=== PATIENT | female | born 1935 | race Caucasian/White ===

== ENCOUNTER 2017-07-05 15:30 | Outpatient (CLI) | payer MEDICARE, OTHER | END 2017-07-05 15:31 | disposition home or self-care (01) | LOC: BICMAMMO 15:30 | DX: Z12.31 Encounter for screening mammogram for malignant neoplasm of breast (principal); Z80.3 Family history of malignant neoplasm of breast | CPT/HCPCS: 77063; 77067 ==

== ENCOUNTER 2017-08-27 07:18 | Outpatient (CLI) | payer MEDICARE, OTHER | END 2017-08-27 07:19 | disposition home or self-care (01) | LOC: CT 07:18 | PROVIDERS: ATTEND Otolaryngology Plastic Surgery within the Head & Neck | DX: E83.52 Hypercalcemia (principal) | CPT/HCPCS: 82565 ==

== ENCOUNTER 2017-10-19 08:07 | Outpatient (CLI) | payer MEDICARE, OTHER | END 2017-10-19 08:08 | disposition home or self-care (01) | LOC: BICULT 08:07 | PROVIDERS: ATTEND Internal Medicine Nephrology | DX: I77.811 Abdominal aortic ectasia (principal); N17.9 Acute kidney failure, unspecified; I12.9 Hypertensive chronic kidney disease with stage 1 through stage 4 chronic kidney disease, or unspecified chronic kidney disease; N18.3 Chronic kidney disease, stage 3 (moderate); I11.9 Hypertensive heart disease without heart failure; E03.9 Hypothyroidism, unspecified; E78.5 Hyperlipidemia, unspecified; I25.10 Atherosclerotic heart disease of native coronary artery without angina pectoris; N31.9 Neuromuscular dysfunction of bladder, unspecified; R31.9 Hematuria, unspecified; K57.92 Diverticulitis of intestine, part unspecified, without perforation or abscess without bleeding; H26.9 Unspecified cataract; H91.93 Unspecified hearing loss, bilateral; E83.51 Hypocalcemia; J44.9 Chronic obstructive pulmonary disease, unspecified; R60.9 Edema, unspecified; Z85.43 Personal history of malignant neoplasm of ovary | CPT/HCPCS: 76700 ==

== ENCOUNTER 2018-03-21 11:49 | Inpatient (IN) | payer MEDICARE, OTHER ==
[2018-03-21 12:28] LABS: #Eosinphils 0.1 thou/uL (0.0-0.7); #Lymphocytes 1.1 thou/uL (1.20-3.40); #Monocytes 0.8 thou/uL (0.11-0.59); #Neutrophils 9.1 thou/uL (1.40-6.50); %Basophils 0.2 % (0.0-1.0); %Eosinophils 0.9 % (0.0-10.0); %Lymphocytes 9.8 % (21.0-51.0); %Monocytes 6.8 % (0.0-10.0); %Neutrophils 82.3 % (42.0-75.0); Hemoglobin 13.9 g/dL (12.0-16.0); Mean Corpuscular HGB CONC 30.2 g/dL (32.0-36.0); Mean Corpuscular Hemoglobin 26.8 pg (27.0-31.0); Mean Platelet Volume 7.6 fL (7.4-10.4); Platelet Count 268 thou/uL (130-400); RBC Distribution Width 13.9 % (11.5-14.5); Red Blood Cell (RBC) Count 5.17 mill/uL (4.20-5.40)
[2018-03-21 12:52] LABS: ALT (SGPT) 24 U/L (8-55); AST (SGOT) 22 U/L (5-34); Albumin 4.3 g/dL (3.4-4.8); Alkaline Phosphatase 60 U/L (40-150); Anion Gap 10 mmol/L (10-20); BUN (Urea Nitrogen) 24 mg/dL (9.8-20.1); Bilirubin, Total 0.8 mg/dL (0.2-1.2); CK (CPK) 60 U/L (29-168); Calc. Creatinine Clearance 0 mL/min (70-130); Calcium 10.6 mg/dL (7.8-10.44); Carbon Dioxide 29 mmol/L (23-31); Chloride 100 mmol/L (98-107); Estimated GFR-MDRD 42; Glucose 125 mg/dL (83-110); Potassium 4.2 mmol/L (3.5-5.1); Protein, Total 7.3 g/dL (6.0-8.3); Sodium 135 mmol/L (136-145)
[2018-03-21 12:57] LABS: CKMB 2.5 ng/mL (0-6.6); Troponin I Less than 0.010 ng/mL (< 0.028)
--- NOTE | 2018-03-21 13:17 | RAD ---
CHEST 1 VIEW: HISTORY: Emergency exam. Chest pain. COMPARISON: Radiograph of 01/13/2016. FINDINGS: Lungs are hyperinflated. No pneumothorax. No large effusion. Cardiac silhouette and mediastinal co ntours are similar. IMPRESSION: Chronic changes. No acute intrathoracic abnormality. POS: CET
[2018-03-21] MEDS ORDERED: Diltiazem 125 MG in Sodium Chloride 0.9% 100 ML IVPB SCH (13:45)
[2018-03-21] MEDS ORDERED: Enoxaparin Sodium 60 MG/0.6 ML SYRINGE ONE (14:28)
--- NOTE | 2018-03-21 16:01 | HP ---
PRIMARY CARE PROVIDER: Kevin Rodríguez M.D. FINANCIAL PLANNING ADVISER: Dr. Adrien Aranda [facility] for atrial fib/atrial flutte r. HISTORY OF PRESENT ILLNESS: This morning woke up, felt fine, then had a mild headache, then develope d palpitations, had no chest discomfort, no shortness of breath, no sweats. She was little lighthead ed. She has no documented history of arrhythmia. She took her blood pressure 3 times and blood pres sure ranged from 114/154 systolic and 70-80 diastolic. Her pulses ranged from 107-147-126. She pres ented in the emergency room. Her initial EKG revealed atrial flutter with 2:1 block. She spontaneou sly converted to sinus rhythm, then went into atrial fibrillation and had rapid ventricular response before Cardizem could be started. She went back into sinus rhythm at 62. PAST MEDICAL HISTORY: Chronic diastolic heart failure, ischemic coronary artery disease post-balloon angioplasty in 1989 and 1994, hypertension, hypothyroidism, dyslipidemia. PAST SURGICAL HISTORY: Ovarian cancer in 2011, underwent surgery and chemotherapy in that year. Has had no recurrence. She has had partial colectomy for diverticulitis. She has had a recent diagnosi s of polymyalgia rheumatica. CURRENT MEDICATIONS: Reviewed by me; Bystolic 5 mg once a day, amitriptyline 10 mg a day, Synthroid 50 mcg a day, losartan 50 mg a day, Lipitor 40 mg a day, clonidine transdermal TTS 1 p.r.n., Anoro El lipta 62.5/25 once a day, prednisone 5 mg in the morning and 2.5 mg in the evening, Lasix 20 mg a day , tramadol 50 mg q.6 hours p.r.n., Ventolin 2 puffs q.4 h. p.r.n. ALLERGIES: To COMPAZINE, PENICILLINS, ZOLOFT. FAMILY HISTORY: Mother and father both had coronary artery disease. Father with a ruptured tho racic abdominal aortic aneurysm. One brother of thoracic aortic aneurysm. SOCIAL HISTORY: Patient has been , a couple of decades. She quit smoking and drinking alcoho l in 1999. She is DNR. I discussed this with her at length. Her grandson is at bedside. Her daugh ter, Keila Delgado, is next of kin. REVIEW OF SYSTEMS: GENERAL: Mild dizziness, no fainting, mild headache. No fever, sweats or chills . EYES: No double vision, blurred vision, flashing lights. ENT: No ear pain or drainage. No nose bleeds, no trouble swallowing. CARDIAC: No chest pain, orthopnea or paroxysmal nocturnal dyspnea. RESPIRATORY: No cough, wheezing or asthma. GASTROINTESTINAL: No nausea, vomiting, abdominal pain, diarrhea or melena. GENITOURINARY: No hematuria, dysuria. MUSCULOSKELETAL: No pain or swelling i n her legs. NEUROLOGIC: No strokes, seizures or focal weakness. PSYCHIATRIC: No anxiety, depressi on issues currently. SKIN: She has a chronic rash on her upper back across her shoulders. This has been evaluated by multiple doctors with biopsies. No specific diagnosis or treatment. HEME/LYMPH: No tender or swollen lymph nodes in axilla, inguinal or cervical area. PHYSICAL EXAMINATION: VITAL SIGNS: Currently blood pressure 114/78, pulse is 62, respirations 16, temperature 98.7. HEENT: Examination of her head, eyes, ears, nose, and throat reveal pupils are equal, round, and kraig ctive to light. Extraocular movements are intact. Sclerae are white. Tympanic membrane is clear. Nose is clear. Oral mucous membranes are wet. Dental hygiene is good. NECK: No adenopathy, jugular venous distention, bruits. CHEST: Clear to auscultation and percussion bilateral. HEART: Regular rate and rhythm. First and second heart sounds are clear. There are no appreciated murmurs or gallops. ABDOMEN: Soft, bowel sounds are normal. No hepatosplenomegaly, no mass, no rebound, no bruits. EXTREMITIES: Reveal no cyanosis, clubbing or edema. PULSES: Carotid, radial, femoral, and dorsalis pedis pulses are brisk and symmetric. SKIN: Warm and dry with mild excoriated rash across her posterior shoulders. No petechial hemorrhag es or bruising. LYMPHATIC: No tender or swollen lymph nodes in axilla, inguinal or cervical area. NEUROLOGIC: Cranial nerves II-XII are intact. Deep tendon reflexes symmetric. Moves all extremitie s. IMAGING DATA AND LABORATORY DATA: First EKG atrial flutter with classic saw tooth pattern at 2:1 blo ck. Next EKG, atrial fibrillation with rapid ventricular response. Current sinus rhythm with no acu te ST-T abnormality. All were read by myself. Chest x-ray reviewed by me, no cardiomegaly, vertical heart, no CHF or infiltrate, early diaphragmatic flattening consistent with mild to moderate COPD. CBC: White count 11.0, hemoglobin 13.9, platelet count 268,000. Comp metabolic profile; creatinine 1.22, BUN 24, glucose 125, calcium 10.6. Liver function tests normal. Sodium 135, potassium 4.2, CO 2 29. ADMITTING DIAGNOSES: 1. Atrial flutter. 2. Atrial fibrillation with rapid ventricular response. 3. Coronary artery disease. 4. Hypertension. 5. Chronic obstructive pulmonary disease. 6. Dyslipidemia. 7. Hypothyroidism. 8. Polymyalgia rheumatica on placement doses of prednisone. 9. History of ovarian CA, apparently in remission. PLAN: 1. Admit to telemetry. 2. Therapeutic doses of Lovenox. 3. Selective home medicines. 4. Cardiology consult with Dr. Aranda. 5. EP consult with Dr. Barton. 6. Thyroid function test studies. 7. Repeat CBC and basic metabolic profile in the morning.
[2018-03-21] MEDS ORDERED: Acetaminophen 325 MG TAB PO PRN (16:59)
[2018-03-21] MEDS ORDERED: Ondansetron PF 4 MG/2 ML Vial IVP PRN (16:59)
[2018-03-21] MEDS ORDERED: Zolpidem Tartrate 5 MG TAB PO PRN (16:59)
[2018-03-21 17:04] LABS: Troponin I 0.012 ng/mL (< 0.028)
[2018-03-21 17:19] VITALS: BMI 25.0
[2018-03-21 18:50] LABS: Free T4 (Free Thyroxine) 1.18 ng/dL (0.70-1.48)
[2018-03-21 19:44] LABS: Troponin I 0.024 ng/mL (< 0.028)
[2018-03-21] MEDS: Enoxaparin Sodium 60 MG/0.6 ML SYRINGE SC SCH (20:11)
[2018-03-22 05:26] LABS: #Eosinphils 0.3 thou/uL (0.0-0.7); #Lymphocytes 1.9 thou/uL (1.20-3.40); #Neutrophils 5.1 thou/uL (1.40-6.50); %Basophils 0.3 % (0.0-1.0); %Eosinophils 3.1 % (0.0-10.0); %Neutrophils 61.6 % (42.0-75.0); Hemoglobin 11.9 g/dL (12.0-16.0); Mean Corpuscular HGB CONC 30.8 g/dL (32.0-36.0); Mean Corpuscular Hemoglobin 27.5 pg (27.0-31.0); Mean Corpuscular Volume 89.1 fL (78.0-98.0); Mean Platelet Volume 7.6 fL (7.4-10.4); Platelet Count 227 thou/uL (130-400); RBC Distribution Width 13.9 % (11.5-14.5); Red Blood Cell (RBC) Count 4.35 mill/uL (4.20-5.40); White Blood Cell (WBC) Count 8.3 thou/uL (4.8-10.8)
[2018-03-22 05:32] LABS: Anion Gap 8 mmol/L (10-20); BUN (Urea Nitrogen) 21 mg/dL (9.8-20.1); Calc. Creatinine Clearance 45 mL/min (70-130); Calcium 9.7 mg/dL (7.8-10.44); Carbon Dioxide 27 mmol/L (23-31); Chloride 106 mmol/L (98-107); Estimated GFR-MDRD 56; Glucose 96 mg/dL (83-110); Sodium 137 mmol/L (136-145)
[2018-03-22] MEDS: hydrALAZINE 20 MG/ML VIAL SLOW IVP PRN ×2 (05:34→19:46)
[2018-03-22] MEDS ORDERED: Levothyroxine Sodium 50 MCG TAB PO SCH (06:00)
--- NOTE | 2018-03-22 08:15 | PDOC.PN ---
- Subjective Encounter Start Date: 03/22/18 Encounter Start Time: 08:13 Subjective: no palpatations, chest pain - Objective Resuscitation Status: Resuscitation Status DNR:Do Not Resuscitate MAR Reviewed: Yes Vital Signs & Weight: Vital Signs (12 hours) Temp Pulse Resp BP BP Pulse Ox 03/22/18 07:37 97.9 F 72 18 166/70 H 95 03/22/18 07:13 94 L 03/22/18 06:27 167/87 H 03/22/18 06:22 167/87 H 03/22/18 05:34 72 188/75 H 03/22/18 04:00 98.4 F 71 20 179/74 H 94 L 03/21/18 20:45 97 Weight Weight 139 lb I&O: 03/21/18 03/22/18 03/23/18 06:59 06:59 06:59 Intake Total 830 Output Total 1550 Balance -720 Result Diagrams: 03/22/18 04:55 03/22/18 04:55 Phys Exam - Physical Examination Neck: no JVD Respiratory: clear to auscultation bilateral Cardiovascular: RRR, no significant murmur Gastrointestinal: soft, positive bowel sounds Musculoskeletal: no edema Dx/Plan (1) Atrial fib/flutter, transient Code(s): [id number] - Status: Acute (2) Coronary arteriosclerosis Status: Chronic (3) Hypertension Code(s): I10 - ESSENTIAL (PRIMARY) HYPERTENSION Status: Acute Qualifiers: Hypertension type: essential hypertension Qualified Code(s): I10 - Essential (primary) hypertension (4) Hypothyroidism Code(s): E03.9 - HYPOTHYROIDISM, UNSPECIFIED Status: Acute Qualifiers: Hypothyroidism type: unspecified Qualified Code(s): E03.9 - Hypothyroidism , unspecified - Plan Cardiologfy consult, EP consult- discuss * .
--- NOTE | 2018-03-22 09:59 | CON ---
DATE OF CONSULTATION: 03/22/2018 REASON FOR CONSULTATION: Atrial flutter. HISTORY OF PRESENT ILLNESS: Ms. Kulwinder Myers is a very pleasant patient with a long history of c oronary disease who was admitted to the hospital with rapid heart rate and found to be in atrial flut ter. She also has had a history of atrial fibrillation as well. The patient has a history of percutaneous transluminal coronary angioplasty in 1989 and 1994, but has not had recurrent angina. She also has history of hypertension. PAST SURGICAL HISTORY: 1. Ovarian cancer with subsequent chemotherapy. 2. Partial colectomy for diverticulitis. 3. Polymyalgia. MEDICATIONS: Prior to admission; 1. Bystolic. 2. Amitriptyline. 3. Synthroid. 4. Losartan. 5. Lipitor. 6. Clonidine. ALLERGIES: COMPAZINE and PENICILLIN. FAMILY HISTORY: Mother and father both had coronary artery disease. Father of abdominal aortic aneurysm rupture. SOCIAL HISTORY: Quit smoking in 1999. REVIEW OF SYSTEMS: Constitutional: No significant weight gain or loss. Vision: No changes. Heari ng: No changes. Pulmonary: No cough or wheezing. Gastrointestinal: No nausea, vomiting, diarrhea . Skin: No rashes. Neurologic: No unilateral weakness or numbness. Psychiatric: No unusual depr ession or anxiety. PHYSICAL EXAMINATION: GENERAL: Pleasant patient, in no distress. VITAL SIGNS: Blood pressure 114/78, pulse 62. HEENT: Sclerae nonicteric. Mouth Mucous membranes moist. NECK: Supple, no lymphadenopathy. LUNGS: Clear. CARDIAC: Normal S1, normal S2. There is no murmur, rub or gallop. ABDOMEN: Soft, nontender. EXTREMITIES: No clubbing or cyanosis. There is no edema. SKIN: Warm and dry. LABORATORY AND X-RAY FINDINGS: EKG did reveal periods of atrial flutter. ASSESSMENT: 1. Symptomatic atrial flutter. 2. History of coronary artery disease. PLAN: Agree totally with proceeding with atrial flutter ablation. I spoke with one of the daughters over the phone, strongly advised proceeding with flutter ablation, flutter without ablation is extre benitez high recurrence rate. In that occasion, they are almost always ineffective. They understand and wish to proceed.
--- NOTE | 2018-03-22 12:14 | CON ---
DATE OF CONSULTATION: 03/22/2018 REFERRING PHYSICIAN: Dr. Chester Shankar REASON FOR CONSULTATION: Symptomatic atrial flutter with rapid ventricular response. TRACK LABORER: Dr. Adrien Aranda HISTORY OF PRESENT ILLNESS: Ms. Myers originally presented to [facility] reportin g an elevated heart rate and slightly with associated symptoms of headache and slight lightheadedness . She had been checking her vital signs at home and reports her blood pressure had begun to vary gre atly and her heart rate was recorded as high as 147 at home. On presentation to the emergency room a n EKG was performed that showed atrial flutter with a 2:1 AV block with ventricular rate of 125 beats per minute. She spontaneously converted to sinus rhythm, by ER records she then went into atrial fi brillation with RVR and has since converted back to sinus rhythm. She reports that she has had at ast 1 similar episode in the recent past, but this is not a longstanding issue for her. Currently, she is feeling well. She denies any heart racing, palpitations, chest pain, pressure, syn cope, near syncope, stroke or stroke-like symptoms. REVIEW OF SYSTEMS GENERAL: Denies fevers, chills, malaise, loss of appetite or unintentional weight loss. HEENT: Denies any double vision, vision changes, speech changes or difficult swallowing. CARDIAC: Positive for a fluttering sensation in her chest recently. Denies chest pain, pressure or swelling of the extremities. PULMONARY: Negative for shortness of breath, cough or dyspnea on exertion. GASTROINTESTINAL/GENITOURINARY: Denies nausea, vomiting, diarrhea, frequency, hesitancy or pain with urination. NEUROLOGIC: Denies any unilateral weakness, speech changes, vision changes or concern for stroke or seizures. PAST MEDICAL HISTORY: 1. Chronic diastolic heart failure. 2. Coronary artery disease status post angioplasty in 1989 and 1994. 3. Hypertension. 4. Hypothyroidism. 5. Dyslipidemia. 6. Polymyalgia rheumatica. PAST SURGICAL HISTORY: 1. Ovarian cancer diagnosed in 2011, status post surgical management as well as chemotherapy that ye ar without recurrence. 2. Partial colectomy for diverticulitis. ALLERGIES: COMPAZINE, PENICILLIN, and ZOLOFT. HOME MEDICATIONS: 1. Bystolic 5 mg daily. 2. Amitriptyline 10 mg daily. 3. Synthroid 50 mg daily. 4. Losartan 50 mg daily. 5. Lipitor 40 mg a day. 6. Clonidine transdermal patch as needed for hypertension 7. Anoro Ellipta 62.5/25 daily. 8. Prednisone 5 mg q.a.m. and 2.5 mg q.p.m. 9. Lasix 20 mg daily. 10. Tramadol 50 mg q.6 hours p.r.n. 11. Ventolin inhaler 2 puffs q.4 hours p.r.n. FAMILY HISTORY: Mother and father both had coronary artery disease. Father from a ruptu red thoracic abdominal aortic aneurysm as well as one of her brothers. SOCIAL HISTORY: . Quit smoking in 1999. She has her daughter, Keila Delgado as her next of kin. Her grandson is at bedside during the exam. By her choice she is a DNR. VITAL SIGNS: Most recent vital signs include 97.9, pulse 72, blood pressure is 166/70, respirations 18, oxygen is 95% on room air. GENERAL: This is a well-appearing, well-groomed female in no apparent distress. HEENT: She is normocephalic, atraumatic. Sclerae are anicteric. EOMs are intact. Mucous membranes moist, pink. NECK: Supple without lymphadenopathy or jugular venous distention. CHEST: Clear to auscultation bilaterally without wheezes, crackles or rhonchi. CARDIOVASCULAR: Heart rate is regularly regular with a crisp S1, S2. No appreciated murmurs, rubs o r gallops. ABDOMEN: Soft, nontender without palpable masses. Hepatojugular is negative. EXTREMITIES: Warm and dry to touch without clubbing, cyanosis or edema. NEUROLOGIC: Grossly intact and nonfocal. Cranial nerves II-XII, her gait was not assessed. DATABASE: The telemetry and EKGs were personally reviewed which initially show seemingly typical atr ial flutter with 2:1 AV pia conduction with a ventricular rate of approximately 125 beats per minut e. Telemetry currently reads sinus rhythm. LABORATORY DATA: Hematology is unremarkable. Chemistry panel from this morning, potassium 4.0, crea tinine 0.95, serial troponins were negative. TSH 1.01, free T4 1.18, free T3 of 2.14, otherwise unre markable. Chest x-ray from the day prior, chronic changes, no acute abnormalities. IMPRESSION: 1. Symptomatic atrial flutter with rapid ventricular response, likely CTI dependent. 2. History of coronary artery disease. 3. CHADS2-VASc score at least 5 on the basis of advanced age, female gender, vascular disease and hy pertension, currently on therapeutic Lovenox for stroke prophylaxis, but will require chronic oral an ticoagulation. 4. Chronic obstructive pulmonary disease. RECOMMENDATIONS: I had a long discussion with Ms. Myers and her grandson, discussing atrial arr hythmias and possible treatment options. Our recommendation is for EP study and CTI ablation for her typical atrial flutter. There has been some mention of atrial fibrillation in her record as well wh ich is not unlikely. Approximately 30% of patients with right-sided atrial circuits also have atrial fibrillation. We discussed that with the patient as well. We will keep her n.p.o. today for possib le EP study and ablation later this afternoon. Risks include hematoma, bleeding at groin site, damag e to blood vessels, perforation of the heart, need for CV Surgery and further arrhythmias. The patie nt voices understanding and wishes to proceed with ablation at this time after discussing it further with Dr. Aranda as well. If just typical right-sided atrial flutter is seen during EP she will only require oral anticoagulation for 30 days post-ablation, but if further left atrial circuits are seen, continued OAC would be indicated and further medical management versus potential ablation can be dis cussed at a later date with her. Thank you for allowing us to participate in the care of this patient.
[2018-03-22] MEDS: Enoxaparin Sodium 60 MG/0.6 ML SYRINGE SC SCH (12:41)
[2018-03-22] MEDS ORDERED: PHENYLEPHRINE-NS 100 MCG/ML 10 ML SYRINGE ONE ×2 (15:02→16:54)
[2018-03-22] MEDS ORDERED: PROPOFOL 200 MG/20 ML VIAL ONE (15:02)
[2018-03-22] MEDS ORDERED: Lidocaine 1% (PF) 30 ML VIAL ONE (15:08)
[2018-03-22] MEDS ORDERED: Propofol 500 MG/50 ML VIAL ONE ×3 (15:50→16:54)
[2018-03-22] MEDS ORDERED: Heparin 10,000 UNITS/1 ML VIAL ONE (15:50)
[2018-03-22] MEDS ORDERED: PROPOFOL 20 ML ONE ×2 (17:29→17:50)
[2018-03-22] MEDS ORDERED: Ondansetron HCl/PF 4 MG/2 ML Vial IVP PRN (18:13)
[2018-03-22] MEDS ORDERED: cloNIDine 0.1 MG TAB PO PRN (20:38)
[2018-03-22] MEDS ORDERED: Nitroglycerin 0.4 MG TAB (25 Tab Bottle) SL PRN (20:45)
[2018-03-22] MEDS ORDERED: PROVENTIL INHALER 6.7 G (200 INHALATIONS) INH PRN (20:47)
[2018-03-22] MEDS ORDERED: Amitriptyline HCl 10 MG TAB PO SCH (21:00)
[2018-03-22] MEDS ORDERED: prednisoLONE 15 MG/5 ML UDCUP PO SCH (21:00)
[2018-03-22] MEDS ORDERED: Betamethasone Val 0.1% OINT 15 GM TUBE TOP PRN (21:15)
[2018-03-22] MEDS ORDERED: Morphine 2 MG/ML SYRINGE SLOW IVP SCH (21:30)
[2018-03-22] MEDS: traMADol HCl 50 MG TAB PO PRN ×2 (21:37→21:49)
[2018-03-22] MEDS: Nebivolol HCl 5 MG TAB PO SCH (21:49)
--- NOTE | 2018-03-23 01:56 | OP ---
DATE OF PROCEDURE: 03/22/2018 This is an electrophysiology study and radiofrequency ablation report. REFERRING PHYSICIAN: Dr. Donald Dozier and Dr. Aranda REASON FOR PROCEDURE: Ms. Myers is an 82-year-old female with history of coronary artery disease and remote history of atrial fibrillation. She has presented with typical atrial flutter with rapid rates. During the observation , she spontaneously cardioverted. PROCEDURE: Patient received deep sedation by Anesthesia specialist. After adequate level of sedation achieved, the right femoral venous area was prepped, draped, and anesthetized with subcutaneous lidocaine and with ultrasound guidance, the right femoral vein was cannulated x2. Two 8-Hungarian short sheath was introduced through which a Decapolar catheter was advanced to the RV, His bundle, RA, and CS position. Pacing, mapping, and recording was performed in each location. The ThermoCool SF ST catheter was advanced to the right atrium. A 3D map of the right atrium was obtained including His bundle and CS was visualized. Following that, basic EP study was performed with the following finding. Baseline of the sinus rhythm with cycle length of 630 milliseconds, LA of 193. QRS 558, QT 373, AH 136, HV 56 milliseconds. Sinus node recovery time was 12: 29. Corrected sinus node recovery time is 380 Wenckebach cycle length was 340, retrograde Wenckebach cycle length was 540 milliseconds. Central retrograde VA conduction was noted. AV node ERP of was 600/240 milliseconds with no dual AV pia physiology present. Burst atrial pacing was able to induce the atrial flutter, which appears to be typical isthmus-dependent in morphology and CS activation, but terminated on overdrive pacing. Following that cavotricuspid isthmus ablation was performed prolonging transit time about 110 milliseconds. Subsequent to that atrial fibrillation was seen, which was difficult to shock terminated, the IV amiodarone was given and eventually cardioversion again performed. Cardiac silhouette did not change pre and post ablation. Patient tolerated the procedure well. Sheaths were pulled in superintendent geophysical laboratory. PLAN: Continue monitoring, initiate the oral anticoagulation if recurrent atrial arrhythmias seen - consider antiarrhythmic therapy, possibly pulmonary venous isolation procedure. MTDD
[2018-03-23] MEDS ORDERED: Diazepam 5 MG TAB PO SCH (06:00)
[2018-03-23] MEDS ORDERED: Communication Order-Pharmacy FS SCH (06:00)
[2018-03-23] MEDS ORDERED: Levothyroxine Sodium 50 MCG TAB PO SCH (06:00)
[2018-03-23] MEDS ORDERED: Sodium Chloride 0.9% 1,000 ML IV SCH (06:00)
--- NOTE | 2018-03-23 07:44 | PDOC.PN ---
- Subjective Encounter Start Date: 03/23/18 Encounter Start Time: 07:40 Subjective: backache post procedure - Objective Resuscitation Status: Resuscitation Status DNR:Do Not Resuscitate MAR Reviewed: Yes Vital Signs & Weight: Vital Signs (12 hours) Temp Pulse Resp BP BP BP Pulse Ox 03/23/18 07:15 92 L 03/23/18 07:14 72 18 92 L 03/23/18 04:00 98.3 F 71 16 128/60 93 L 03/22/18 22:37 64 18 114/56 L 03/22/18 21:30 99 03/22/18 20:55 70 18 132/59 L 03/22/18 19:46 56 L 182/77 H Weight Weight 136 lb 3.2 oz I&O: 03/22/18 03/23/18 03/24/18 06:59 06:59 06:59 Intake Total 830 1230 Output Total 1550 400 Balance -720 830 Result Diagrams: 03/22/18 04:55 03/22/18 04:55 Phys Exam - Physical Examination Neck: no JVD Respiratory: clear to auscultation bilateral Cardiovascular: RRR, no significant murmur Gastrointestinal: soft, positive bowel sounds Musculoskeletal: no edema Dx/Plan (1) Atrial fib/flutter, transient Code(s): [id number] - Status: Resolved (2) Coronary arteriosclerosis Status: Chronic (3) Hypertension Code(s): I10 - ESSENTIAL (PRIMARY) HYPERTENSION Status: Acute Qualifiers: Hypertension type: essential hypertension Qualified Code(s): I10 - Essential (primary) hypertension (4) Hypothyroidism Code(s): E03.9 - HYPOTHYROIDISM, UNSPECIFIED Status: Acute Qualifiers: Hypothyroidism type: unspecified Qualified Code(s): E03.9 - Hypothyroidism , unspecified - Plan RSR post ablation, starting eliquis -: discuss with EP and Cardiology * .
[2018-03-23] MEDS ORDERED: prednisoLONE 15 MG/5 ML UDCUP PO SCH (08:00)
[2018-03-23] MEDS ORDERED: Furosemide 20 MG TAB PO SCH (09:00)
[2018-03-23] MEDS ORDERED: Losartan 25 MG TAB PO SCH (09:00)
[2018-03-23] MEDS ORDERED: Atorvastatin Calcium 40 MG TAB PO SCH (09:00)
[2018-03-23] MEDS ORDERED: Aspirin 81 mg Enteric Coated Tablet PO SCH (09:00)
[2018-03-23] MEDS ORDERED: Apixaban 5 MG TAB PO SCH (09:00)
[2018-03-23] MEDS: Nebivolol HCl 5 MG TAB PO SCH (09:06)
--- NOTE | 2018-03-23 09:24 | PDOC.CTH ---
Cardiology Progress Note - Subjective EP progress Note: Patient doing well since ablation yesterday. groin site stable. no heart racing/ palpitations. feeling well. - Objective Vital Signs Temp Pulse Resp BP BP Pulse Ox 03/23/18 07:54 98.1 F 69 18 128/59 L 96 03/23/18 07:15 92 L 03/23/18 07:14 72 18 92 L 03/23/18 04:00 98.3 F 71 16 128/60 93 L 03/22/18 22:37 64 18 114/56 L 03/22/18 21:30 99 Weight 136 lb 3.2 oz 03/22/18 03/23/18 03/24/18 06:59 06:59 06:59 Intake Total 830 1230 Output Total 1550 400 Balance -720 830 - Physical Examination General/Neuro: alert & oriented x3, NAD Neck: carotid US brisk, no JVD present Lungs: CTA, unlabored respirations Heart: PMI normal, RRR Abdomen: NT/ND, soft - Telemetry Telemetry Rhythm: SR - Labs Result Diagrams: 03/22/18 04:55 03/22/18 04:55 Troponin/CKMB CK-MB (CK-2) 2.5 ng/mL (0-6.6) 03/21/18 12:23 Troponin I 0.024 ng/mL (< 0.028) 03/21/18 19:02 - Assessment/Plan 1. Typical atrial flutter with RVR -s/p CTI ablation with EPS that also demonstrated atrial fibrillation that required IV amiodarone and DCCV to restore a sinus mechanism -Maintained sinus rhythm overnight 2. CHADS2-VASC: 5 -Eliquis 5mg PO BID 3. Preserved LVEF ~60% by 2D echo this hospitalization OK for DC by EP. Continue Eliquis 5mg PO BID until further notice. Will arrange for 1 week monitor to be sent to patient to evaluate for atrial fibrillation burden/presence outside of EPS. Follow up with [facility] in 4-6 weeks.
[2018-03-23 12:00] VITALS: BP 130/60; TEMP 97.6
--- NOTE | 2018-03-23 12:11 | PRG ---
DATE OF SERVICE: 03/23/2018 Ms. Myers is doing well after her ablation yesterday. She feels well. The ablation was successful. She did require cardioversion from atrial fibrillation after the proced ure. No chest pain or pressure. PHYSICAL EXAMINATION: VITAL SIGNS: Blood pressure 128/59, pulse 69 regular. LUNGS: Clear. CARDIAC: Normal S1, normal S2. ASSESSMENT: 1. Status post atrial flutter with atrial flutter ablation. 2. Coronary artery disease, appears stable. 3. Atrial flutter with a successful ablation and also some paroxysmal atrial fibrillation. PLAN: She will go home on apixaban (Eliquis) 5 mg twice a day in addition to all her other previous medicines. She has a followup to see as next week. If necessary the [facility] but that is very expensive, she indicates that would be very much of a problem for he r. For now, hopefully, beta blockers will control the fibrillation adequately. She has not been bot hered by a lot of fibrillation in the past. Hopefully, beta blockers will be adequate. These are ca rdioselective beta blockers.
--- NOTE | 2018-03-23 12:39 | EKG ---
Test Reason : STAT Blood Pressure : / mmHG Vent. Rate : 061 BPM Atrial Rate : 061 BPM P-R Int : 198 ms QRS Dur : 086 ms QT Int : 440 ms P-R-T Axes : 077 060 047 degrees QTc Int : 442 ms Normal sinus rhythm Normal ECG When compared with ECG of 21-MAR-2018 13:40, (Unconfirmed) No significant change was found Confirmed by DR. Isatu GAN (3) on 03/23/2018 12:39:20 PM Referred By: Confirmed By:DR. Isatu GAN
--- NOTE | 2018-03-23 12:45 | EKG ---
Test Reason : TIMED Blood Pressure : / mmHG Vent. Rate : 067 BPM Atrial Rate : 067 BPM P-R Int : 186 ms QRS Dur : 084 ms QT Int : 404 ms P-R-T Axes : 081 038 041 degrees QTc Int : 426 ms Normal sinus rhythm Normal ECG When compared with ECG of 22-MAR-2018 18:29, (Unconfirmed) No significant change was found Confirmed by DR. Isatu GAN (3) on 03/23/2018 12:45:10 PM Referred By: DAPHNE Confirmed By:DR. Isatu GAN
--- NOTE | 2018-03-23 17:47 | DIS ---
DATE OF ADMISSION: 03/21/2018 DATE OF DISCHARGE: 03/23/2018 DISCHARGE DISPOSITION: To home. PRIMARY CARE PROVIDER: Kevin Rodríguez M.D. NEGATIVE STRIPPER: Adrien Aranda M.D. FINAL DIAGNOSES: 1. Atrial flutter, 2:1 block post-ablation; atrial fibrillation, paroxysmal; coronary artery disease ; hypertension. 2. Chronic kidney disease. 3. Polymyalgia rheumatica. DISCHARGE MEDICATIONS: Eliquis 5 mg p.o. b.i.d. and Ellipta 1 inhalation daily, Ventolin HFA 2 puffs q.4 hours p.r.n., levothyroxine 50 mcg a day, tramadol 50 mg p.o. q.6 hours p.r.n., amitriptyline 10 mg at bedtime, Bystolic 5 mg p.o. b.i.d., furosemide 20 mg a day as directed, prednisone 5 mg in the morning and 2.5 mg in the evening, Cozaar 50 mg a day, aspirin 162 mg a day, Lipitor 40 mg a day. ALLERGIES: PENICILLINS, COMPAZINE, ZOLOFT. DIET: Heart healthy. PENDING AT THE TIME OF DISCHARGE: Nothing. CODE STATUS: Full. HOSPITAL COURSE: The patient noticed palpitations and came to the hospital and found to be in atrial flutter, 2:1 block which spontaneously converted. She then had an episode of atrial fibrillation, w hich spontaneously converted. She was placed in the hospital and placed on anticoagulation. Dr. Alyssa noble was consulted. Dr. aBrton was consulted. PERTINENT LABORATORY DATA: CBC: White count 11.8, followup 8.3; hemoglobin 13.9, followup 11.9; pam telet count 268,000, followup 227,000. Comp metabolic profile: Sodium 135, potassium 4.2, BUN 24, c reatinine 1.22, blood sugar 126, calcium 10.6, followup 9.7. Cardiac enzymes were normal. Thyroid f unction tests were normal. The patient was taken to the laboratory veterinarian. She underwent an ablation for atr ial flutter. She has an episode of atrial fibrillation which responded to IV medications. She is cu rrently in regular sinus rhythm. Dr. Barton and Dr. Aranda both affirmed that she may go home. She is to be followed up with Dr. Aranda. She has an appointment in approximately 1 week. Other studies d one including an echocardiogram which showed an EF of 60-65%. As mentioned before, her followup was with Dr. Aranda in approximately 1 week.
[2018-03-24] MEDS ORDERED: Furosemide 20 MG TAB PO SCH (09:00)
== END 2018-03-23 15:25 | disposition home or self-care (01) | DRG 274 ==
LOC: ERS 11:49 → 2NO 15:09
PROVIDERS: ADMIT Internal Medicine; ATTEND Internal Medicine
PROC: 02583ZZ Destruction of Conduction Mechanism, Percutaneous Approach (ICD-10-PCS; principal; 2018-03-22)
PROC: 02K83ZZ Map Conduction Mechanism, Percutaneous Approach (ICD-10-PCS; 2018-03-22)
PROC: 4A023FZ Measurement of Cardiac Rhythm, Percutaneous Approach (ICD-10-PCS; 2018-03-22)
PROC: 4A0234Z Measurement of Cardiac Electrical Activity, Percutaneous Approach (ICD-10-PCS; 2018-03-22)
PROC: 5A2204Z Restoration of Cardiac Rhythm, Single (ICD-10-PCS; 2018-03-22)
DX: I48.3 Typical atrial flutter (principal); I50.32 Chronic diastolic (congestive) heart failure; I13.0 Hypertensive heart and chronic kidney disease with heart failure and stage 1 through stage 4 chronic kidney disease, or unspecified chronic kidney disease; Z66 Do not resuscitate; I25.10 Atherosclerotic heart disease of native coronary artery without angina pectoris; E03.9 Hypothyroidism, unspecified; I25.2 Old myocardial infarction; Z95.5 Presence of coronary angioplasty implant and graft; Z85.43 Personal history of malignant neoplasm of ovary; J44.9 Chronic obstructive pulmonary disease, unspecified; E78.5 Hyperlipidemia, unspecified; Z90.49 Acquired absence of other specified parts of digestive tract; M35.3 Polymyalgia rheumatica; Z87.891 Personal history of nicotine dependence; I48.0 Paroxysmal atrial fibrillation; N18.9 Chronic kidney disease, unspecified
CPT/HCPCS: 36415; 71045; 76942; 80048; 80053; 82553; 84439; 84443; 84481; 84484; 85025; 92960; 93005; 93010; 93306; 93613; 93623; 93653; 94760; 96372; C1730; C1769; J0282; J0360; J1644; J1650; J2001; J2270; J2704; J7050; J7620

== ENCOUNTER 2018-04-21 00:51 | Inpatient (IN) | payer MEDICARE, OTHER ==
[2018-04-21] MEDS ORDERED: Nitroglycerin 2% Ointment 1 INCH/1 GM Packet ONE (01:17)
[2018-04-21 01:42] LABS: #Eosinphils 0.2 thou/uL (0.0-0.7); #Lymphocytes 1.8 thou/uL (1.20-3.40); #Monocytes 0.7 thou/uL (0.11-0.59); #Neutrophils 5.2 thou/uL (1.40-6.50); %Basophils 0.5 % (0.0-1.0); %Lymphocytes 22.7 % (21.0-51.0); %Monocytes 8.9 % (0.0-10.0); %Neutrophils 65.9 % (42.0-75.0); Hemoglobin 13.8 g/dL (12.0-16.0); Mean Corpuscular HGB CONC 31.9 g/dL (32.0-36.0); Mean Corpuscular Hemoglobin 28.6 pg (27.0-31.0); Mean Corpuscular Volume 89.6 fL (78.0-98.0); Mean Platelet Volume 8.3 fL (7.4-10.4); Platelet Count 197 thou/uL (130-400); RBC Distribution Width 14.4 % (11.5-14.5); Red Blood Cell (RBC) Count 4.85 mill/uL (4.20-5.40); White Blood Cell (WBC) Count 7.8 thou/uL (4.8-10.8)
[2018-04-21 01:55] LABS: ALT (SGPT) 26 U/L (8-55); AST (SGOT) 23 U/L (5-34); Albumin 4.2 g/dL (3.4-4.8); Alkaline Phosphatase 73 U/L (40-150); Anion Gap 13 mmol/L (10-20); BUN (Urea Nitrogen) 34 mg/dL (9.8-20.1); Bilirubin, Total 0.5 mg/dL (0.2-1.2); Calc. Creatinine Clearance 0 mL/min (70-130); Calcium 10.5 mg/dL (7.8-10.44); Carbon Dioxide 26 mmol/L (23-31); Chloride 104 mmol/L (98-107); Estimated GFR-MDRD 37; Globulin 2.9 g/dL (2.4-3.5); Glucose 127 mg/dL (83-110); Lipase 38 U/L (8-78); Potassium 4.5 mmol/L (3.5-5.1); Protein, Total 7.1 g/dL (6.0-8.3); Sodium 138 mmol/L (136-145)
[2018-04-21] MEDS ORDERED: Morphine 4 MG/ML VIAL SLOW IVP PRN (04:24)
[2018-04-21 04:26] LABS: Troponin I 0.134 ng/mL (< 0.028)
[2018-04-21] MEDS ORDERED: Ondansetron PF 4 MG/2 ML Vial IVP PRN ×2 (04:26→08:42)
[2018-04-21] MEDS ORDERED: Ondansetron ODT 4 MG TAB SL PRN (04:26)
[2018-04-21] MEDS ORDERED: Acetaminophen 325 MG TAB PO PRN ×2 (04:26→08:42)
[2018-04-21] MEDS ORDERED: Sodium Chloride 0.9% 1,000 ML IV SCH ×2 (04:30→06:00)
[2018-04-21 04:48] VITALS: BMI 24.8
[2018-04-21] MEDS: cloNIDine 0.1 MG TAB PO PRN (05:02)
[2018-04-21 05:23] LABS: CKMB 4.4 ng/mL (0-6.6)
[2018-04-21 07:46] LABS: Troponin I 1.323 ng/mL (< 0.028)
--- NOTE | 2018-04-21 08:06 | RAD ---
PORTABLE UPRIGHT FRONTAL CHEST RADIOGRAPH: Date: 04/21/18 COMPARISON: 03/21/18. HISTORY: Chest pain and hypertension. FINDINGS: There is mild increased linear interstitial density with pulmonary hyperinflation, stable. Stable ath erosclerotic calcification of the aortic arch. No pneumothorax or pleural fluid. No focal consolidation or alveolar edema. IMPRESSION: No acute findings. Stable appearance of the chest. POS: [facility]
[2018-04-21 08:10] LABS: CKMB 14.1 ng/mL (0-6.6)
[2018-04-21] MEDS ORDERED: Ondansetron ODT 4 MG TAB PO PRN (08:42)
[2018-04-21] MEDS ORDERED: cloNIDine 0.1 MG TAB PO PRN ×2 (08:42→10:18)
[2018-04-21] MEDS ORDERED: PROVENTIL INHALER 6.7 G (200 INHALATIONS) INH PRN (08:42)
[2018-04-21] MEDS ORDERED: Non-Formulary Item 1 EACH (Umeclidinium Brm/Vilanterol Tr [Anoro Ellipta] 1 INH) IH SCH (09:00)
[2018-04-21] MEDS ORDERED: Communication Order-Pharmacy FS SCH (10:00)
[2018-04-21] MEDS ORDERED: Nitroglycerin 2% Ointment 1 INCH/1 GM Packet TOP SCH (10:00)
[2018-04-21] MEDS ORDERED: Clopidogrel Bisulfate 300 MG TAB PO SCH (10:00)
[2018-04-21] MEDS ORDERED: Betamethasone Val 0.1% OINT 15 GM TUBE TOP PRN (10:08)
[2018-04-21 10:18] LABS: Cardiac Risk 2.6 (Less than 4.5)
[2018-04-21] MEDS: Aspirin 325 MG TAB PO SCH (10:25)
[2018-04-21 10:29] LABS: Troponin I 2.893 ng/mL (< 0.028)
[2018-04-21] MEDS: Atorvastatin Calcium 40 MG TAB PO SCH (10:29)
[2018-04-21] MEDS: Losartan 25 MG TAB PO SCH (10:29)
[2018-04-21] MEDS: Nebivolol HCl 5 MG TAB PO SCH ×2 (10:29→20:33)
[2018-04-21] MEDS: Famotidine 20 MG TAB PO SCH ×2 (10:30→20:33)
[2018-04-21 12:48] LABS: Troponin I 4.615 ng/mL (< 0.028)
[2018-04-21] MEDS: Sodium Chloride 0.9% 1,000 ML IV SCH ×2 (13:18→23:33)
--- NOTE | 2018-04-21 14:01 | HP ---
PRIMARY CARE PHYSICIAN: Dr. Kevin Rodríguez. CHIEF COMPLAINT: Chest pain. HISTORY OF PRESENT ILLNESS: Ms. Myers is a very pleasant 82-year-old female, who has a history of coronary artery disease. She is status post balloon angioplasty in the . She also recently was diagnosed with atrial flutter and is post ablation approximately one month ago. She was in her usual state of health until last night. She says around 1200 a.m. in the morning, she awoke with chest pain. She says it was across her entire chest. She really could not rate the pain, but states it was not terrible, but it was enough that she was concerned about it. She also noted that her blood pressure was elevated as well. She did not have any associated symptoms such as nausea, vomiting, shortness of breath, etc. She also noted that she was a bit sweaty as well. Due to her symptoms, she came to the ER for evaluation. There, it was noted that she had a slightly elevated troponin and she is being admitted for further evaluation. She says prior to this, she was feeling fine. She says she was running around "like a crazy woman" and says that she was not having any chest pain or dyspnea and in general had been feeling good up to this point. She denies any PND, no orthopnea, or any lower extremity edema. REVIEW OF SYSTEMS: All systems were reviewed and are negative except for that mentioned in the history of present illness. PAST MEDICAL HISTORY: Significant for chronic diastolic heart failure, coronary artery disease, hypertension, hypothyroidism, hyperlipidemia, polymyalgia rheumatica, atrial fibrillation, and atrial flutter. PAST SURGICAL HISTORY: She has had ovarian cancer, partial colectomy for diverticulitis as well as an ablation. ALLERGIES: COMPAZINE, PENICILLIN, AND ZOLOFT. SOCIAL HISTORY: She is . She is a former smoker and she used to drink. CODE STATUS: When asked she says she does not know if she would want to be resuscitated or not. She says she has gone through this a few times. She would not want to be on life support for a long time, but if she could be successfully revived, she would want to be. Therefore, we will make her a full code. FAMILY HISTORY: Significant for coronary artery disease in her mother and father had a ruptured abdominal aortic aneurysm as well as a brother, who had a thoracic aneurysm. CURRENT MEDICATIONS: Include 1. Eliquis 5 mg twice a day. 2. Ventolin inhaler 90 mcg as needed. 3. Prednisone 5 mg daily. 4. Nitrostat 0.4 sublingual p.r.n. 5. Bystolic 5 mg twice a day. 6. Losartan 50 mg daily. 7. Levothyroxine 50 mcg daily. 8. Lasix 20 mg as directed. 9. Clonidine 0.1 mg p.r.n. 10. Vitamin D3 2000 units daily. 11. Lipitor 40 mg daily. 12. Aspirin 81 mg daily. 13. Elavil 10 mg at bedtime. PHYSICAL EXAMINATION: GENERAL: She is alert and oriented. She appears to be in no acute distress. She is well-developed and well-nourished. VITAL SIGNS: Blood pressure 218/78, heart rate 68, respiratory rate of 20, and temperature is 98.2. HEENT: Pupils are equal, round, and reactive. Extraocular muscles are intact. Sclerae anicteric. Throat, there is no erythema. No exudates. NECK: No adenopathy. No bruits. LUNGS: Clear to auscultation. There is no wheezing, no rales. No rhonchi. CARDIOVASCULAR: She has a normal S1 and S2. There is no S3 or S4. She did have a slight grade 2/6 systolic murmur. ABDOMEN: Soft. It is nontender and nondistended. Positive for bowel sounds. There is no rebound, no guarding. No organomegaly. EXTREMITIES: There is no clubbing or cyanosis. No edema. No calf tenderness. NEUROLOGIC: Her muscle strength is 5/5 in both her upper and lower extremities. SKIN AND INTEGUMENT: No skin changes. No rash. LABORATORY AND DIAGNOSTIC DATA: On her chest x-ray, she did have some flattening of her diaphragms, but no infiltrate, no effusion. EKG is sinus rhythm, the rate is 69, and she had some nonspecific ST wave changes. Both of these are by my reading. Her sodium is 138, potassium 4.5, chloride is 104, CO2 is 26, BUN of 34, creatinine 1.36, glucose is 127. Troponin is 0.134 and then the repeat was 1.323. Her white blood cell count 7.8, hemoglobin 13.8, hematocrit is 43.4, platelet count is 197. ASSESSMENT: 1. This is a pleasant 82-year-old female, who presents with chest pain and elevated troponin in the setting of a history of coronary artery disease in the past. She has a complicated cardiac history and is therefore at higher risk. She was originally to be placed in observation, but now with a positive troponin, she will be a full admission. She is already anticoagulated with Eliquis. We will hold her morning dose in the event that the cardiac catheterization is planned and consider covering her with heparin or Lovenox later in the day after the half-life has passed. Continue nitroglycerin topical with a nitroglycerin paste as well as aspirin and morphine as needed for pain and Cardiology will be consulted. 2. Recent atrial flutter. Currently, she is in sinus rhythm. Eliquis again will be held until further recommendations from Cardiology. 3. Hypertension. She initially had extremely elevated blood pressure on admission; however, it is better controlled after receiving some p.r.n. clonidine in the emergency room. We will continue her usual home medications plus p.r.n. medications as needed. 4. Hypothyroidism. This appears to be clinically euthyroid. Continue levothyroxine. 5. Chronic diastolic heart failure. This is currently compensated. Job ID: [id number]
--- NOTE | 2018-04-21 16:52 | CON ---
DATE OF CONSULTATION: 04/21/2018 REASON FOR CONSULTATION: [id number] myocardial infarction. HISTORY OF PRESENT ILLNESS: Ms. Kulwinder Myers is a very pleasant 82-year-old woman with history of coronary artery disease and history of atrial arrhythmias, who was admitted with chest pain, found to have a zqn-TH-[id number] myocardial infarction. Ms. Myers was resting at home last night when she had pain all across her lower chest, which intensified, ultimately came to the emergency room. She was given additional medicine here including additional aspirin, her pain resolved. Cardiac enzymes were found to be slightly elevated that will be outlined below. The patient does have a history of coronary artery disease as well as atrial arrhythmias and has a history of atrial fibrillation and recent atrial fibrillation ablation. The patient did have an acute myocardial infarction in 1989. She underwent balloon angioplasty and occluded right coronary artery that was November 1989 and did well. She had recurrent chest pain in 1994 and had repeat balloon angioplasty of the right coronary artery. Her vessels were noted to be small. She did well from a coronary standpoint since then. She did undergo repeat cardiac catheterization in December 2015. She is found to have 2-vessel coronary artery disease, but no obstructive stenosis. The left main was normal. LAD proximally is normal. The mid LAD has 50% lesion with calcium, right coronary 30% to 40% proximal, 30% to 40% mid, and 50% to 60% lesion prior to the posterior descending artery. These were all nonobstructive plaques. She has done very well from a cardiac standpoint since then. She has had no chest pain up until last night. MEDICATIONS: At home, she takes: 1. Eliquis 5 mg twice a day, last dose yesterday. 2. Levothyroxine. 3. Bystolic 5 mg a day. 4. Aspirin 81 mg a day. 5. Lasix, if needed. 6. Losartan 50 mg a day. 7. Atorvastatin 40 mg a day. ALLERGIES: PENICILLIN, COMPAZINE, AND ZOLOFT. SOCIAL HISTORY: She used to smoke, quit smoking many years ago. FAMILY HISTORY: Negative for heart disease in a young age. REVIEW OF SYSTEMS: CONSTITUTIONAL: No significant weight gain or loss. VISION: No changes. HEARING: No changes. PULMONARY: No cough or wheezing. GASTROINTESTINAL: No nausea, vomiting, or diarrhea. SKIN: No rashes. NEUROLOGIC: No unilateral weakness or numbness. PSYCHIATRIC: No unusual depression or anxiety. HEMATOLOGIC: No unusual bruising. GENITOURINARY: No burning with urination. PHYSICAL EXAMINATION: GENERAL: This is a pleasant, thin, elderly woman. She is 5 feet 3 inches tall, 140 pounds. VITAL SIGNS: Blood pressure 120/58 and pulse 66, regular. HEENT: Eyes, sclerae nonicteric. Mouth, mucous membranes moist. NECK: Supple. No lymphadenopathy. LUNGS: Clear. No wheezing, rales, or rhonchi. CARDIAC: Normal S1 and normal S2. There is no murmur, rub, or gallop. ABDOMEN: Soft and nontender. EXTREMITIES: No clubbing. No cyanosis or edema. She has good dorsalis pedis pulses bilaterally. SKIN: Warm and dry. PERTINENT LABORATORY DATA: The troponin initially was 0.134, followup 1.323. The patient has been pain-free since early on during this admission. EKG, sinus rhythm, some ST-depression in V4 through V6. Heart rate is not elevated during that EKG. ASSESSMENT: 1. Status post abt-VF-[id number] myocardial infarction, previous balloon angioplasty of the right coronary in 1989 and 1994, currently pain-free. 2. Atrial flutter ablation done a month ago, still on Eliquis, received a dose yesterday evening. 3. History of hypertension, somewhat labile. PLAN: 1. Continue aspirin. 2. Stop Eliquis. 3. Proceed to cardiac catheterization tomorrow. It would be safer to do once the Eliquis levels have dropped. If she has recurrent pain, today she could undergo catheterization from the radial artery, but it would be safer to wait until tomorrow, sometimes it is very difficult to do the radial cases in elderly small woman, the vessels may be small and may require femoral access. Discussed risks of stroke, heart attack, iodine allergy, loss of blood supply to leg or kidney, stent thrombosis, stent restenoses. She understands and wished to proceed. This will be tentatively scheduled for tomorrow. 4. We will go ahead and give her 150 mg of Plavix today to try to prevent her from having recurrent chest pain today. We will not give a maintenance dose. Job ID: [id number]
[2018-04-21] MEDS: Mometasone/Formoterol 120 PUFF INHALER INH SCH (19:35)
[2018-04-21] MEDS ORDERED: prednisoLONE 15 MG/5 ML UDCUP PO SCH (21:00)
[2018-04-21] MEDS ORDERED: Amitriptyline HCl 10 MG TAB PO SCH (21:00)
[2018-04-22] MEDS: cloNIDine 0.1 MG TAB PO PRN (03:34)
[2018-04-22 04:21] LABS: #Eosinphils 0.2 thou/uL (0.0-0.7); #Lymphocytes 1.4 thou/uL (1.20-3.40); #Monocytes 0.6 thou/uL (0.11-0.59); #Neutrophils 4.2 thou/uL (1.40-6.50); %Basophils 0.1 % (0.0-1.0); %Eosinophils 3.4 % (0.0-10.0); %Lymphocytes 22.1 % (21.0-51.0); %Monocytes 8.5 % (0.0-10.0); %Neutrophils 65.8 % (42.0-75.0); Hemoglobin 12.1 g/dL (12.0-16.0); Mean Corpuscular Hemoglobin 28.5 pg (27.0-31.0); Mean Corpuscular Volume 89.1 fL (78.0-98.0); Mean Platelet Volume 8.2 fL (7.4-10.4); Platelet Count 163 thou/uL (130-400); RBC Distribution Width 14.5 % (11.5-14.5); Red Blood Cell (RBC) Count 4.24 mill/uL (4.20-5.40); White Blood Cell (WBC) Count 6.4 thou/uL (4.8-10.8)
[2018-04-22 04:37] LABS: Anion Gap 10 mmol/L (10-20); BUN (Urea Nitrogen) 24 mg/dL (9.8-20.1); Calc. Creatinine Clearance 47 mL/min (70-130); Calcium 9.4 mg/dL (7.8-10.44); Carbon Dioxide 22 mmol/L (23-31); Chloride 113 mmol/L (98-107); Estimated GFR-MDRD 60; Glucose 111 mg/dL (83-110); Potassium 4.5 mmol/L (3.5-5.1); Sodium 140 mmol/L (136-145)
[2018-04-22] MEDS ORDERED: Diazepam 10 MG/2 ML SYRINGE IVP SCH (05:00)
[2018-04-22] MEDS ORDERED: Levothyroxine Sodium 50 MCG TAB PO SCH (06:00)
[2018-04-22] MEDS: Aspirin 325 MG TAB PO SCH (06:08)
[2018-04-22] MEDS: Atorvastatin Calcium 40 MG TAB PO SCH (06:08)
[2018-04-22] MEDS: Losartan 25 MG TAB PO SCH (06:08)
[2018-04-22] MEDS: Nebivolol HCl 5 MG TAB PO SCH (06:08)
[2018-04-22] MEDS: Famotidine 20 MG TAB PO SCH (06:08)
[2018-04-22] MEDS: Sodium Chloride 0.9% 1,000 ML IV SCH ×2 (06:10→12:00)
[2018-04-22] MEDS: Mometasone/Formoterol 120 PUFF INHALER INH SCH (07:06)
[2018-04-22] MEDS ORDERED: predniSONE 5 MG TAB PO SCH ×2 (08:00→21:00)
[2018-04-22] MEDS ORDERED: prednisoLONE 15 MG/5 ML UDCUP PO SCH (08:00)
[2018-04-22] MEDS ORDERED: Iopamidol 370 76% 100 ML VIAL ONE (08:23)
[2018-04-22] MEDS ORDERED: Lidocaine 1% (PF) 30 ML VIAL ONE ×2 (08:27→10:21)
[2018-04-22] MEDS ORDERED: Heparin 0 ML ONE (08:27)
[2018-04-22] MEDS ORDERED: Verapamil 5 MG/2 ML VIAL ONE ×2 (08:38→10:44)
[2018-04-22] MEDS ORDERED: Heparin 10,000 UNITS/1 ML VIAL ONE ×2 (08:38→10:44)
[2018-04-22] MEDS ORDERED: Nitroglycerin 100MG/250ML BOT 0 ML ONE (08:38)
[2018-04-22] MEDS ORDERED: Fentanyl 100 MCG/2 ML VIAL ONE (10:20)
[2018-04-22] MEDS ORDERED: Midazolam HCl 2 mg/2 ml Vial ONE (10:20)
[2018-04-22] MEDS ORDERED: Nitroglycerin 100MG/250ML BOT 250 ML ONE (10:44)
[2018-04-22] MEDS ORDERED: Nitroglycerin 0.4 MG TAB (25 Tab Bottle) SL PRN (12:07)
[2018-04-22] MEDS ORDERED: Acetaminophen/Codeine 30-300mg Tablet PO PRN ×2 (12:07)
[2018-04-22] MEDS ORDERED: Sodium Chloride 0.9% 200 ML IV PRN (12:07)
[2018-04-22] MEDS ORDERED: traMADol HCl 50 MG TAB PO PRN (12:07)
[2018-04-22 16:44] VITALS: BP 144/63; TEMP 97.9
--- NOTE | 2018-04-22 17:12 | PDOC.PN ---
- Subjective Encounter Start Date: 04/22/18 Encounter Start Time: 17:10 Ms. Myers was seen today in follow-up of NSTEMI. She does not have any complaint this morning. - Objective Resuscitation Status - Order Detail: 04/21/18 08:37 Resuscitation Status Routine Resuscitation Status: FULL: Full Resuscitation MAR Reviewed: Yes Vital Signs & Weight: Vital Signs (12 hours) Temp Pulse Resp BP Pulse Ox 04/22/18 16:34 97.9 F 63 16 144/63 H 100 04/22/18 13:05 62 142/65 H 04/22/18 11:49 98.3 F 59 L 18 163/72 H 100 04/22/18 07:20 98.2 F 67 16 156/68 H 97 Weight Weight 139 lb 9.6 oz I&O: 04/21/18 04/22/18 04/23/18 06:59 06:59 06:59 Intake Total 233 2654 Output Total 300 1525 Balance -67 1129 Result Diagrams: 04/22/18 03:54 04/22/18 03:54 Phys Exam - Physical Examination HEENT: PERRLA Respiratory: no wheezing, no rales, no rhonchi, clear to auscultation bilateral Cardiovascular: RRR, no significant murmur, no rub Gastrointestinal: soft, non-tender, no distention, positive bowel sounds Musculoskeletal: no edema Dx/Plan (1) NSTEMI (non-ST elevated myocardial infarction) Code(s): I21.4 - NON-ST ELEVATION (NSTEMI) MYOCARDIAL INFARCTION Status: Acute (2) Hypertension Code(s): I10 - ESSENTIAL (PRIMARY) HYPERTENSION Status: Chronic Qualifiers: (3) Hypothyroidism Code(s): E03.9 - HYPOTHYROIDISM, UNSPECIFIED Status: Chronic Qualifiers: (4) Coronary arteriosclerosis Status: Chronic - Plan * NSTEMI- likely due to uncontrolled HTN in the setting of moderate CAD * She has been cleared for discharge by Dr. Carey.
[2018-04-23] MEDS ORDERED: Apixaban 5 MG TAB PO SCH (09:00)
[2018-04-23] MEDS ORDERED: Losartan 25 MG TAB PO SCH (09:00)
--- NOTE | 2018-04-23 12:49 | EKG ---
Test Reason : Blood Pressure : / mmHG Vent. Rate : 069 BPM Atrial Rate : 069 BPM P-R Int : 178 ms QRS Dur : 084 ms QT Int : 378 ms P-R-T Axes : 083 042 068 degrees QTc Int : 405 ms Sinus rhythm with Premature atrial complexes Possible Left atrial enlargement Nonspecific ST and T wave abnormality Abnormal ECG ST segment depression, V4 - V6, new from 03/21/2018 Confirmed by SHA SALCEDO ([id number]), food editor DAVID STALLWORTH ([id number]) on 04/23/2018 12:48:55 PM Referred By: MATIAS Confirmed By:SHA SALCEDO
--- NOTE | 2018-04-24 21:15 | DIS ---
DATE OF ADMISSION: 04/21/2018 DATE OF DISCHARGE: 04/22/2018 PRIMARY CARE PHYSICIAN: Dr. Kevin Rodríguez. DISCHARGE DISPOSITION: Home. PRIMARY DISCHARGE DIAGNOSES: 1. Ivh-TX-jbjgnxw elevated myocardial infarction. 2. Hypertension, uncontrolled. 3. Coronary artery disease. 4. Dyslipidemia. 5. Hypothyroidism. DISCHARGE MEDICATIONS: Include; 1. Losartan, the dose was increased from 50 to 100 mg daily. 2. . 3. Vitamin D3 of 2000 units daily. 4. Eliquis 5 mg twice a day. 5. Ventolin inhaler 90 mcg inhaled q.i.d. as needed. 6. Triamcinolone topical daily. 7. Prednisone 5 mg in the morning and 2.5 mg at bedtime. 8. . 9. Bystolic 5 mg twice a day. 10. Synthroid 50 mcg daily. 11. Lasix 20 mg as directed. 12. Clonidine 0.1 as needed. 13. Lipitor 40 mg daily. 14. Aspirin 81 mg daily. 15. Elavil 10 mg at bedtime. PROCEDURES DONE DURING THE ADMISSION: The patient had a cardiac catheterization, which demonstrated RCA that had 50% disease, but no flow-limiting disease. Also, LAD with some mid 50% lesion lesion in the left circ 30%. The ejection fraction estimated at 70%. CODE STATUS: Full code. ALLERGIES: TO PENICILLIN, PROCHLORPERAZINE, ZOLOFT, AND PENICILLIN. HOSPITAL COURSE: Ms. Myers is a pleasant 82-year-old female, who presented to the emergency room complaining of chest pain. She was found to have an elevated troponin, which went up as high as 4.6. Cardiology was consulted, and she underwent cardiac catheterization. She was found to have some diffuse disease throughout her coronary arteries, but nothing which was flow-limiting and nothing that required intervention. It is felt that her elevated blood pressure may be contributing to her symptoms. For this reason, the losartan was increased and she was placed on nitroglycerin sublingual p.r.n. She is to follow up with her analysis mgr in a couple of weeks as instructed and also with her primary care physician in 1 to 2 weeks as well. Job ID: [id number]
== END 2018-04-22 18:40 | disposition home or self-care (01) | DRG 281 ==
LOC: ERS 00:51 → 2SW 02:34 → OBSVTOIN 08:42 → 2NO 04-22 11:47
PROVIDERS: ADMIT Hospitalist; ATTEND Hospitalist
PROC: 4A023N7 Measurement of Cardiac Sampling and Pressure, Left Heart, Percutaneous Approach (ICD-10-PCS; principal; 2018-04-22)
PROC: B2111ZZ Fluoroscopy of Multiple Coronary Arteries using Low Osmolar Contrast (ICD-10-PCS; 2018-04-22)
PROC: B2151ZZ Fluoroscopy of Left Heart using Low Osmolar Contrast (ICD-10-PCS; 2018-04-22)
DX: I21.4 Non-ST elevation (NSTEMI) myocardial infarction (principal); I50.32 Chronic diastolic (congestive) heart failure; I25.10 Atherosclerotic heart disease of native coronary artery without angina pectoris; E78.5 Hyperlipidemia, unspecified; E03.9 Hypothyroidism, unspecified; Z88.0 Allergy status to penicillin; Z79.01 Long term (current) use of anticoagulants; I11.0 Hypertensive heart disease with heart failure
CPT/HCPCS: 36415; 71045; 80048; 80053; 80061; 82553; 83690; 84484; 85025; 93005; 93458; 93798; 94760; C1769; J1644; J2001; J2250; J3010

== ENCOUNTER 2018-06-23 03:45 | Emergency (ER) | payer MEDICARE, OTHER ==
--- NOTE | 2018-06-25 19:51 | EKG ---
Test Reason : Blood Pressure : / mmHG Vent. Rate : 083 BPM Atrial Rate : 083 BPM P-R Int : 178 ms QRS Dur : 084 ms QT Int : 366 ms P-R-T Axes : 077 031 033 degrees QTc Int : 430 ms Sinus rhythm with Premature atrial complexes Otherwise normal ECG Confirmed by ALIX LUND DO ([id number]), order editor EDWIN KING ([id number]) on 06/25/2018 7:51:02 PM Referred By: Confirmed By:ALIX LUND DO
== END 2018-06-23 05:03 | disposition home or self-care (01) ==
LOC: ERS 03:45
DX: I10 Essential (primary) hypertension (principal); E03.9 Hypothyroidism, unspecified; J44.9 Chronic obstructive pulmonary disease, unspecified; I25.2 Old myocardial infarction; I48.92 Unspecified atrial flutter; Z79.899 Other long term (current) drug therapy; Z79.82 Long term (current) use of aspirin; Z79.51 Long term (current) use of inhaled steroids
CPT/HCPCS: 93005

== ENCOUNTER 2018-07-15 12:38 | Inpatient (IN) | payer MEDICARE, OTHER ==
[2018-07-15 13:19] LABS: #Eosinphils 0.1 thou/uL (0.0-0.7); #Lymphocytes 1.2 thou/uL (1.20-3.40); #Monocytes 0.8 thou/uL (0.11-0.59); #Neutrophils 12.8 thou/uL (1.40-6.50); %Basophils 0.1 % (0.0-1.0); %Eosinophils 0.4 % (0.0-10.0); %Lymphocytes 7.9 % (21.0-51.0); %Monocytes 5.4 % (0.0-10.0); %Neutrophils 86.1 % (42.0-75.0); Hemoglobin 14.1 g/dL (12.0-16.0); Mean Corpuscular HGB CONC 31.2 g/dL (32.0-36.0); Mean Corpuscular Hemoglobin 28.5 pg (27.0-31.0); Mean Corpuscular Volume 91.4 fL (78.0-98.0); Mean Platelet Volume 7.3 fL (7.4-10.4); Platelet Count 263 thou/uL (130-400); RBC Distribution Width 14.5 % (11.5-14.5); Red Blood Cell (RBC) Count 4.94 mill/uL (4.20-5.40); White Blood Cell (WBC) Count 14.8 thou/uL (4.8-10.8)
[2018-07-15 13:22] LABS: Bilirubin Negative (Negative); Blood, Urine Negative (Negative); Clarity CLEAR (Clear); Glucose, Urine (Dipstick) Negative (Negative); Leukocyte Negative (Negative); Nitrite Negative (Negative); Protein, Urine (Dipstick) Negative (Neg-Trace); Specific Gravity, Urine 1.004 (1.002-1.036); Urobilinogen 0.2 mg/dL (0.2-1.0); pH, Urine 7.5 (5.0-9.0)
[2018-07-15 13:33] LABS: INR-International Normal Ratio 1.3; Prothrombin Time 15.8 SEC (12.0-14.7)
[2018-07-15 13:46] LABS: ALT (SGPT) 25 U/L (8-55); AST (SGOT) 23 U/L (5-34); Albumin 4.1 g/dL (3.4-4.8); Alkaline Phosphatase 73 U/L (40-150); Anion Gap 13 mmol/L (10-20); BUN (Urea Nitrogen) 28 mg/dL (9.8-20.1); Bilirubin, Total 1.1 mg/dL (0.2-1.2); Calc. Creatinine Clearance 0 mL/min (70-130); Calcium 10.5 mg/dL (7.8-10.44); Carbon Dioxide 27 mmol/L (23-31); Chloride 98 mmol/L (98-107); Estimated GFR-MDRD 42; Glucose 133 mg/dL (83-110); Potassium 4.2 mmol/L (3.5-5.1); Protein, Total 7.1 g/dL (6.0-8.3); Sodium 134 mmol/L (136-145)
[2018-07-15] MEDS ORDERED: Diltiazem 125 MG/25 ML ONE (15:23)
--- NOTE | 2018-07-15 15:53 | RAD ---
CHEST 1 VIEW: Date: 07/15/18 HISTORY: Tachycardia. Palpitations. COMPARISON: 04/21/18. FINDINGS: Cardiac silhouette is magnified by projection. Mediastinum is midline with aortic calcification. Pulm onary vasculature is unremarkable. Scarring at the left lateral lung base is stable. Patient is sligh tly rotated rightward. No lobar consolidation or evidence of pneumothorax. ekg monitor tech leads over lie the chest. IMPRESSION: 1. Atherosclerosis. 2. Chronic-type findings are stable. POS: [facility]
[2018-07-15] MEDS ORDERED: Acetaminophen 325 MG TAB PO PRN (17:05)
[2018-07-15] MEDS ORDERED: Ondansetron PF 4 MG/2 ML Vial IVP PRN (17:05)
[2018-07-15] MEDS ORDERED: Ondansetron ODT 4 MG TAB SL PRN (17:05)
[2018-07-15 17:54] VITALS: BMI 24.7
[2018-07-15] MEDS ORDERED: Nitroglycerin 0.4 MG TAB (25 Tab Bottle) SL PRN (18:36)
[2018-07-15] MEDS ORDERED: PROVENTIL INHALER 6.7 G (200 INHALATIONS) INH PRN (18:36)
[2018-07-15] MEDS ORDERED: cloNIDine 0.1 MG TAB PO PRN (18:36)
[2018-07-15] MEDS ORDERED: traMADol HCl 50 MG TAB PO PRN (18:45)
[2018-07-15] MEDS ORDERED: Diltiazem HCl 125 MG, Admixture Fee 1 EACH in Sodium Chloride 0.9% 100 ML IVPB SCH (20:00)
[2018-07-15] MEDS ORDERED: predniSONE 5 MG TAB PO SCH (21:00)
[2018-07-15 21:16] LABS: Troponin I 0.012 ng/mL (< 0.028)
[2018-07-15] MEDS: Amitriptyline HCl 10 MG TAB PO SCH (21:42)
[2018-07-15] MEDS: Ezetimibe 10 MG TAB PO SCH (21:43)
[2018-07-15] MEDS: Sodium Chloride 5% Opth 15 ML BOT EA EYE SCH (21:44)
--- NOTE | 2018-07-16 01:11 | HP ---
CHIEF COMPLAINT: Rapid heart rate. HISTORY OF PRESENT ILLNESS: This patient is an 82-year-old female, who is followed by Dr. Aranda. The patient has a history of atrial flutter and underwent ablation and subsequently has had chronic atrial fibrillation, for which she takes Eliquis. She was apparently monitoring her blood sugar at home closely because of concerns about her blood pressure being too low. She has been dealing with some bronchitis since May and has been on some antibiotic medication, which she finished just a few days ago. The patient reports while at home, she was monitoring her blood pressure when she noted her heart rate to be elevated around 118 on her heart monitor. She did not feel terribly bad, so she did not too much with that, but continued to monitor and subsequently, she had readings in the 140s. Ultimately, she called Dr. Aranda's office to report the numbers and she was advised to present to the emergency department. The patient denies any chest pain, significant palpitations, shortness of breath, or abdominal pain. She does continue to have very mild cough with her history of COPD and recent bronchitis. REVIEW OF SYSTEMS: She denies any fevers or chills. She has not had significant sputum production. She has had occasional mild minimal headache sensation in the right posterior area. All other systems were reviewed and all pertinent positives and negatives noted in the history of present illness. PAST MEDICAL HISTORY: The patient had history of nonocclusive coronary disease with a heart catheterization being performed in April of 2018 without intervention. She has a history of chronic diastolic heart failure with an echocardiogram being performed in March 2018, revealing an ejection fraction of 60% to 65%, diastolic dysfunction. She has hypertension, hypothyroidism, hyperlipidemia, polymyalgia rheumatica, atrial flutter with subsequent atrial fibrillation status post ablation. She also has a history of COPD and the above-mentioned chronic bronchitis. PAST SURGICAL HISTORY: History of ovarian cancer surgery, partial colectomy for diverticulitis, and cardiac ablation. FAMILY HISTORY: Significant for coronary artery disease in her mother, father had ruptured AAA, and brother with thoracic aneurysm. SOCIAL HISTORY: The patient is . She is a former smoker, who has some history of tobacco with minimal alcohol consumption. ALLERGIES: PENICILLINS, COMPAZINE, AND ZOLOFT. CURRENT MEDICATIONS: 1. Tramadol 50 mg q.4 hours p.r.n. 2. Prednisone 10 mg q.a.m., 2.5 at bedtime. 3. Catapres 0.1 mg p.o. p.r.n. hypertension. 4. Ventolin inhaler 2 puffs q.6 hours p.r.n. 5. Anoro Ellipta one inhalation daily. 6. Triamcinolone acetonide topical p.r.n. 7. Nitroglycerin 0.4 mg sublingual q.5 minutes p.r.n. 8. Nebivolol 5 mg daily. 9. Cozaar 50 mg daily. 10. Levothyroxine 50 mcg daily. 11. Ezetimibe 10 mg at bedtime. 12. Vitamin D3 of 2000 units daily. 13. Atorvastatin 40 mg daily. 14. Aspirin 81 mg daily. 15. Eliquis 5 mg b.i.d. 16. Amitriptyline 10 mg at bedtime. PHYSICAL EXAMINATION: VITAL SIGNS: Temperature 98.1, pulse 105, respirations 18, O2 saturation 93% on room air, and blood pressure 137/58. GENERAL APPEARANCE: Age-appropriate female, in no distress. She is awake, alert, oriented, pleasant, and cooperative. HEENT: PERRL. No OP lesions. NECK: Supple and symmetric. HEART: Irregular with variable rate. No murmurs are heard. LUNGS: Have some minimal rales and wheezes on the right side. Clear on the left, but diminished throughout. ABDOMEN: Soft, nontender, and nondistended. Positive bowel sounds. EXTREMITIES: Reveal some pitting edema, 1+ on the lower extremity. She has some minor interdigital skin lesions on the toes, some varicosities present. NEUROLOGIC: The patient appears to be intact without focal deficits. PSYCH: The patient has normal affect and behavior. LABORATORY DATA: White count 14.8, hemoglobin 14.1, platelets 263. PT is 15.8 and INR is 1.3. Sodium 134, potassium 4.2, chloride 98, anion gap 13, BUN 28, creatinine 1.21, glucose 133, calcium 10.5, AST 23, ALT is 25, alkaline phosphatase 73. Troponin 0.012 with subsequent 0.010. Albumin 4.1. Urinalysis is negative. Chest x-ray shows atherosclerosis and chronic stable findings. EKG shows atrial fibrillation with tachycardia. IMPRESSION AND PLAN: 1. Atrial fibrillation with rapid ventricular response. The patient received a bolus of 10 mg Cardizem in the emergency department, has subsequently been on 5 mg/hour drip. Her rate seems to be better controlled with that. Cardiology is consulted given her history of ablation, she is on Eliquis. 2. Chronic kidney disease stage 3, appears to be generally stable, although very slightly above her average baseline. It is consistent with reading she has had previously. 3. Leukocytosis, likely secondary to prednisone and possibly some stress reaction to tachycardia. 4. Cardiac pause. The patient just had a 5-second pause, which was symptomatic. Discussed case with Cardiology, they are consulted. We will also consult EP. We will go ahead and hold her Eliquis, keep her on Lovenox and decrease her rate to 3 mg/hour. I will also check a thyroid level in the morning. 5. Hypertension. Continue with losartan and Bystolic for now. 6. History of polymyalgia rheumatica. Continue with oral prednisone. 7. History of diastolic dysfunction. Continue with her usual dose of torsemide. 8. Hypothyroidism. Continue levothyroxine and check TSH in the morning. 9. Atorvastatin. Continue with Lipitor. 10. History of chronic obstructive pulmonary disease. Continue with bronchodilators and Anoro Ellipta. Job ID: [id number]
[2018-07-16] MEDS: Levothyroxine Sodium 50 MCG TAB PO SCH (05:50)
[2018-07-16] MEDS: Nebivolol HCl 5 MG TAB PO SCH (08:37)
[2018-07-16] MEDS: Sodium Chloride 5% Opth 15 ML BOT EA EYE SCH ×2 (08:37→21:12)
[2018-07-16] MEDS: Enoxaparin Sodium 60 MG/0.6 ML SYRINGE SC SCH ×2 (08:38→21:11)
[2018-07-16] MEDS: Atorvastatin Calcium 40 MG TAB PO SCH (08:38)
[2018-07-16] MEDS: Torsemide 10 MG TAB PO SCH ×3 (08:38→12:24)
[2018-07-16] MEDS: Losartan 25 MG TAB PO SCH (08:38)
[2018-07-16] MEDS: Aspirin 81 mg Enteric Coated Tablet PO SCH (08:38)
[2018-07-16 09:42] LABS: #Basophils 0.1 thou/uL (0.0-0.2); #Eosinphils 0.2 thou/uL (0.0-0.7); #Monocytes 1.4 thou/uL (0.11-0.59); #Neutrophils 9.4 thou/uL (1.40-6.50); %Basophils 0.5 % (0.0-1.0); %Eosinophils 1.3 % (0.0-10.0); %Lymphocytes 15.2 % (21.0-51.0); Hemoglobin 12.4 g/dL (12.0-16.0); Mean Corpuscular HGB CONC 31.1 g/dL (32.0-36.0); Mean Corpuscular Hemoglobin 27.9 pg (27.0-31.0); Mean Corpuscular Volume 89.7 fL (78.0-98.0); Mean Platelet Volume 7.2 fL (7.4-10.4); Platelet Count 275 thou/uL (130-400); RBC Distribution Width 14.6 % (11.5-14.5); Red Blood Cell (RBC) Count 4.42 mill/uL (4.20-5.40)
[2018-07-16] MEDS ORDERED: predniSONE 5 MG TAB PO SCH (10:00)
[2018-07-16 10:01] LABS: Anion Gap 12 mmol/L (10-20); BUN (Urea Nitrogen) 24 mg/dL (9.8-20.1); Calc. Creatinine Clearance 39 mL/min (70-130); Carbon Dioxide 28 mmol/L (23-31); Chloride 103 mmol/L (98-107); Estimated GFR-MDRD 46; Glucose 102 mg/dL (83-110); Potassium 4.1 mmol/L (3.5-5.1); Sodium 139 mmol/L (136-145)
--- NOTE | 2018-07-16 10:24 | CON ---
DATE OF CONSULTATION: HISTORY OF PRESENT ILLNESS: Kulwinder Myers is a pleasant 82-year-old white female with history of coronary artery disease and atrial flutter. In 1989, she had a myocardial infarction and underwent PTCA of an occluded right coronary artery. In 1994, she had recurrent pain, underwent repeat PTCA of the right coronary artery. In 2015, she underwent cardiac catheterization at [facility]. She was found to have a 50% LAD, 30% to 40% proximal right coronary artery, 30% to 40% mid right coronary artery, and 50% to 60% distal right coronary artery with an ejection fraction of 60%. In March 2018, she was admitted with rapid heart beat was found to be in atrial flutter. She had a previous history of atrial fibrillation. She underwent atrial flutter ablation by Dr. Barton. Also during that electrophysiology study, she developed atrial fibrillation. Apparently, this was difficult to cardiovert. She was given intravenous amiodarone and then converted to sinus rhythm. She was again admitted on April 21, 2018, with a non-STEMI. She underwent catheterization by Dr. Carey for Dr. Aranda. She was found to have serial lesions of 50% in the right coronary artery, 50% mid LAD, 50% proximal diagonal, and 30% proximal left circumflex. Ejection fraction was 70%. She was discharged the following day. Recently, she has had problems with [id number] blood pressure as well as leg edema. She was seen on June [address] Aranda and torsemide 10 mg was started and furosemide was stopped. Bystolic was reduced from 10 mg to 5 mg daily and losartan reduced from 100 to 50 mg daily for blood pressure of 108/70. Yesterday, she stated that she had somewhat of a headache, took her blood pressure, which was normal. Her heart rate was in the 140s. She called the office and was told to go to the emergency room. She was found to be in atrial fibrillation with fast ventricular response and started on IV Cardizem. With this, she would have pauses up to 5.2 seconds. Cardizem dose was reduced and ultimately discontinued. She has since converted to sinus rhythm. She denies any chest discomfort, palpitations, or shortness of breath with the atrial fibrillation. PAST MEDICAL HISTORY: Coronary artery disease as outlined above, history of diastolic heart failure with last ejection fraction of 60% to 65% on echo in March 2018, hypertension, hypothyroidism, hyperlipidemia, atrial flutter status post ablation, atrial fibrillation, polymyalgia rheumatica, and history of COPD. PAST SURGICAL HISTORY: Ovarian cancer surgery followed by chemotherapy, partial colectomy for diverticulitis, and atrial flutter ablation. MEDICATIONS: 1. Eliquis 5 mg daily. 2. Amitriptyline 10 mg at bedtime. 3. Aspirin 81 daily. 4. Atorvastatin 40 mg daily. 5. Catapres 0.1 mg p.r.n. 6. Zetia 10 mg at bedtime. 7. Synthroid 50 mcg daily. 8. Losartan 50 daily. 9. Bystolic 5 mg daily. 10. Nitroglycerin p.r.n. 11. Prednisone 10 mg daily and 2.5 at bedtime. 12. Torsemide 10 mg daily. 13. Anoro Ellipta one inhalation daily. 14. Ventolin inhaler p.r.n. ALLERGIES: PENICILLIN, COMPAZINE, AND ZOLOFT. SOCIAL HISTORY: She smoked in the past. She rarely drinks. REVIEW OF SYSTEMS: A 10-point review of systems is otherwise unremarkable. PHYSICAL EXAMINATION: VITAL SIGNS: Blood pressure 122/59 and pulse of 70. HEENT: PERRL. NECK: Supple. CHEST: Clear. CARDIAC: S1 and S2 normal without any S3, S4, or murmurs. ABDOMEN: Normal bowel sounds without tenderness or organomegaly. EXTREMITIES: Revealed 1+ ankle edema. NEUROLOGIC: Grossly intact. SKIN: Warm and dry. LABORATORY DATA: EKG on admission revealed atrial fibrillation with fast ventricular response of 134 per minute and a nonspecific ST and T-wave changes. White count 14,800, hemoglobin 14.1, hematocrit 45.1, platelets 263,000. Sodium 134, potassium 4.2, chloride 98, carbon dioxide 27, BUN 28, and creatinine 1.21. Troponin I is normal x3. TSH is normal. IMPRESSION: 1. Paroxysmal atrial fibrillation. She was relatively asymptomatic with this and only noticed that her heart rate was increased when she took her blood pressure. On IV Cardizem, she has had up to 5.2 second pauses. She was eventually converted to sinus rhythm. Also, atrial fibrillation was seen during EP study at the time of flutter ablation, requiring intravenous amiodarone ultimately for cardioversion. 2. Status post atrial flutter ablation. 3. Cdy-TO-jhnkziguv myocardial infarction in April 2018 without any lesions found over 50% and catheterization by Dr. Carey. 4. History of percutaneous transluminal coronary angioplasty of the right coronary artery in 1989 and in 1994. 5. Hypertension. 6. Hypercholesterolemia. 7. Hypothyroidism, history of polymyalgia rheumatica on steroids. 8. History of diastolic dysfunction. 9. Former smoker, history of chronic obstructive pulmonary disease. 10. Chronic kidney disease. RECOMMENDATIONS: The patient's Eliquis has been discontinued. She has been placed on Lovenox instead to allow Eliquis effects to wear off. Since she is back in sinus rhythm at this time, she will be started on Multaq to hopefully suppress atrial fibrillation. Discussion was held with the patient and daughter regarding antiarrhythmics and the daughter was a real proponent of Multaq since her currently takes it. Also with her significant pauses, I feel that pacemaker should be placed. We discussed risks of pacemaker insertion including , infection , bleeding, blood clot formation, pneumothorax, cardiac tamponade, reoperation for lead dislodgement, etc. She will be kept n.p.o. on Wednesday for further evaluation by Dr. Aranda. Lovenox will be discontinued after the 9:00 p.m. on Wednesday. Job ID: [id number] MTDD
--- NOTE | 2018-07-16 13:56 | PDOC.PN ---
- Subjective Encounter Start Date: 07/16/18 Encounter Start Time: 11:45 Doing ok this morning. Feels a little better. - Objective Vital Signs & Weight: Vital Signs (12 hours) Temp Pulse Resp BP Pulse Ox 07/16/18 12:00 98.1 F 60 16 118/58 L 99 07/16/18 04:00 98.0 F 70 20 122/59 L 95 Weight Weight 144 lb Result Diagrams: 07/16/18 09:23 07/16/18 09:23 Phys Exam - Physical Examination Constitutional: NAD Respiratory: no wheezing, no rales, no rhonchi, clear to auscultation bilateral Cardiovascular: RRR, no significant murmur, no rub Gastrointestinal: soft, non-tender, no distention, positive bowel sounds Musculoskeletal: no edema Psychiatric: normal affect, A&O x 3 Dx/Plan (1) Atrial fibrillation and flutter Code(s): I48.91 - UNSPECIFIED ATRIAL FIBRILLATION; I48.92 - UNSPECIFIED ATRIAL FLUTTER Status: Acute (2) Sinus pause Code(s): I45.5 - OTHER SPECIFIED HEART BLOCK Status: Acute (3) Coronary arteriosclerosis Status: Chronic (4) Hypertension Code(s): I10 - ESSENTIAL (PRIMARY) HYPERTENSION Status: Chronic Qualifiers: (5) Hypothyroidism Code(s): E03.9 - HYPOTHYROIDISM, UNSPECIFIED Status: Chronic Qualifiers: (6) CKD (chronic kidney disease), stage III Code(s): N18.3 - CHRONIC KIDNEY DISEASE, STAGE 3 (MODERATE) Status: Acute (7) Polymyalgia rheumatica Code(s): M35.3 - POLYMYALGIA RHEUMATICA Status: Acute (8) Hx of diastolic dysfunction Code(s): Z86.79 - PERSONAL HISTORY OF OTHER DISEASES OF THE CIRCULATORY SYSTEM Status: Acute - Plan * Converted to NSR. * Appreciate Cardiology consult. * Starting Multaq. * Anticipate PPM placement on Wednesday.
[2018-07-16] MEDS: Dronedarone HCl 400 MG TAB PO SCH (17:25)
[2018-07-16] MEDS: Amitriptyline HCl 10 MG TAB PO SCH (21:11)
[2018-07-16] MEDS: predniSONE 5 MG TAB PO SCH (21:11)
[2018-07-16] MEDS: Ezetimibe 10 MG TAB PO SCH (21:12)
[2018-07-17] MEDS: Levothyroxine Sodium 50 MCG TAB PO SCH (06:38)
[2018-07-17] MEDS: Dronedarone HCl 400 MG TAB PO SCH ×2 (08:21→16:57)
[2018-07-17] MEDS: Aspirin 81 mg Enteric Coated Tablet PO SCH (08:22)
[2018-07-17] MEDS: Atorvastatin Calcium 40 MG TAB PO SCH (08:22)
[2018-07-17] MEDS: Losartan 25 MG TAB PO SCH (08:23)
[2018-07-17] MEDS: Enoxaparin Sodium 60 MG/0.6 ML SYRINGE SC SCH ×2 (08:23→20:50)
[2018-07-17] MEDS: predniSONE 5 MG TAB PO SCH ×2 (08:24→19:43)
[2018-07-17] MEDS: Nebivolol HCl 5 MG TAB PO SCH (08:24)
[2018-07-17] MEDS ORDERED: Melatonin 3 MG TAB PO PRN (11:30)
--- NOTE | 2018-07-17 11:34 | PDOC.PN ---
- Subjective Encounter Start Date: 07/17/18 Encounter Start Time: 11:32 Having intermittent episodes of not feeling well. Has occasional nausea. Did not sleep last night. A little anxious. - Objective Vital Signs & Weight: Vital Signs (12 hours) Temp Pulse Resp BP Pulse Ox 07/17/18 07:46 98.2 F 72 18 143/66 H 97 07/17/18 07:45 98 07/17/18 04:00 97.8 F 71 16 151/69 H 97 Weight Weight 144 lb Result Diagrams: 07/16/18 09:23 07/16/18 09:23 Additional Labs: Accuchecks 07/16/18 19:47 POC Glucose 191 H Phys Exam - Physical Examination Constitutional: NAD Scattered rales. R>L. Loud popping sound on end exp RU back area with palpable component. Cardiovascular: RRR, no significant murmur, no rub Gastrointestinal: soft, non-tender, no distention, positive bowel sounds Musculoskeletal: no edema Neurological: non-focal Psychiatric: normal affect, A&O x 3 Dx/Plan (1) Atrial fibrillation and flutter Code(s): I48.91 - UNSPECIFIED ATRIAL FIBRILLATION; I48.92 - UNSPECIFIED ATRIAL FLUTTER Status: Acute Comment: In and out of NSR/A-fib (2) Sinus pause Code(s): I45.5 - OTHER SPECIFIED HEART BLOCK Status: Acute (3) Coronary arteriosclerosis Status: Chronic (4) Hypertension Code(s): I10 - ESSENTIAL (PRIMARY) HYPERTENSION Status: Chronic Qualifiers: (5) Hypothyroidism Code(s): E03.9 - HYPOTHYROIDISM, UNSPECIFIED Status: Chronic Qualifiers: (6) CKD (chronic kidney disease), stage III Code(s): N18.3 - CHRONIC KIDNEY DISEASE, STAGE 3 (MODERATE) Status: Acute (7) Polymyalgia rheumatica Code(s): M35.3 - POLYMYALGIA RHEUMATICA Status: Acute (8) Hx of diastolic dysfunction Code(s): Z86.79 - PERSONAL HISTORY OF OTHER DISEASES OF THE CIRCULATORY SYSTEM Status: Acute (9) Abnormal lung examination Code(s): GIT1628 - Status: Acute (10) COPD (chronic obstructive pulmonary disease) Status: Acute - Plan * Melatonin for sleep. * Continue Multaq. * Probable PPM tomorrow with Dr. Carey. * Suspect rib/musculoskelatol abnormality causing the popping sound/feel on lung exam. * She has follow up with Dr. Butcher tomorrow as outpatient that she will not make. Will ask him to come see her per her request. * Continue Prednisone for PMR.
[2018-07-17] MEDS: Torsemide 10 MG TAB PO SCH (12:05)
[2018-07-17] MEDS: Ezetimibe 10 MG TAB PO SCH (20:50)
[2018-07-17] MEDS: Amitriptyline HCl 10 MG TAB PO SCH (20:50)
--- NOTE | 2018-07-17 23:43 | CON ---
DATE OF CONSULTATION: 07/17/2018 SERVICE: Pulmonary Medicine. HISTORY OF PRESENT ILLNESS: The patient is a very pleasant 82-year-old white female with past medical history significant for COPD. She follows with Dr. Butcher in the outpatient setting. She was in her usual state of health until back in March. At that point, she had atrial flutter. She underwent an ablation and went into atrial fibrillation. She has been fighting this rhythm for the past 3-1/2 months. During this time, she has had multiple episodes of volume overload. She has also had multiple episodes of acute bronchitis. On this occasion, she started having increasing shortness of breath, dyspnea on exertion, paroxysmal nocturnal dyspnea, orthopnea, and waking up in the middle of night choking and sometimes short of breath. On this occasion, she came to the emergency department on 07/15 with an elevated heart rate, and dyspnea on exertion. She was found to be in atrial fibrillation with RVR. She was also volume overloaded. Over the last couple of days, she has been diuresed which is proved to touch difficult because of her chronic kidney disease. She actually feels like her breathing is much improved. Her lower extremity swelling has decreased in size. She has been coughing continuously, but not bringing any sputum up. She also endorses some features that could be consistent with sleep apnea. PAST MEDICAL HISTORY: 1. Atrial fibrillation/flutter. 2. Chronic diastolic heart failure. 3. Hypertension. 4. Dyslipidemia. 5. Hypothyroidism. 6. Polymyalgia rheumatica. 7. COPD. PAST SURGICAL HISTORY: 1. Ovarian cancer surgery. 2. Partial colectomy following episode of diverticulitis. 3. Cardiac ablation for atrial tachyarrhythmia. FAMILY HISTORY: Noncontributory. SOCIAL HISTORY: She is . She has a greater than 50-pack year history of smoking, but quit very remotely. Denies any significant alcohol use. She has no exposure to drugs, chemicals, dust, asbestos, or tuberculosis. ALLERGIES: PENICILLIN, COMPAZINE, AND ZOLOFT. MEDICATIONS: Her inpatient medications were reviewed. No specific updates were made at this time. REVIEW OF SYSTEMS: General, head, ears, eyes, nose, throat, cardiovascular, respiratory, GI, , musculoskeletal, neurologic, and skin are negative except as mentioned is the HPI. PHYSICAL EXAMINATION: VITAL SIGNS: Afebrile, pulse 72, blood pressure 125/58, respirations 18, and saturation 95% on room air. GENERAL: The patient is awake and alert, in no apparent distress. LUNGS: Good air entry. There is really not a prolonged expiratory phase. I do not hear polyphonic wheezing today. Crackles are present with careful auscultation in the bibasilar regions. HEART: Normal rate. Irregular. ABDOMEN: Soft, nontender, and nondistended. Bowel sounds are positive. MUSCULOSKELETAL: No cyanosis or clubbing. There is 1 to 2+ pitting in the bilateral lower extremities. NEUROLOGIC: Grossly nonfocal. LABORATORY DATA: WBC 13.0, hemoglobin 12.4, and platelets 275,000. INR 1.3. Creatinine 1.13 and gently downtrending. Basic metabolic profile is otherwise unremarkable. Troponin x2 is unremarkable. Liver function studies and TSH are both unremarkable. Troponin is low at 0.012. Urinalysis is unremarkable. Urine culture is unremarkable. ASSESSMENT: 1. Acute hypoxic respiratory failure, resolved. 2. Acute on chronic diastolic heart failure. 3. Atrial fibrillation with rapid ventricular response. 4. Chronic obstructive pulmonary disease without current exacerbation. DISCUSSION AND PLAN: We will diurese the patient down to euvolemia. She is in line for a likely pacemaker based on what she is telling me. At this point, I think her lung disease is essentially quiescent. I do wonder whether or not she has obstructive sleep apnea. We talked a little bit about this. She is suggesting that it may be difficult for her to commit any type of CPAP device. I will notify Dr. Butcher that Ms. Myers is in the hospital. The reason she requested us to follow was because she had a scheduled appointment with him that she will be unable to keep. Job ID: [id number]
[2018-07-18] MEDS: Levothyroxine Sodium 50 MCG TAB PO SCH (07:23)
[2018-07-18] MEDS: Losartan 25 MG TAB PO SCH (07:23)
[2018-07-18] MEDS: Sodium Chloride 5% Opth 15 ML BOT EA EYE SCH ×2 (07:28→21:24)
--- NOTE | 2018-07-18 08:05 | PDOC.PN ---
- Subjective Encounter Start Date: 07/18/18 Encounter Start Time: 08:03 Subjective: no sob, dizziness - Objective MAR Reviewed: Yes Vital Signs & Weight: Vital Signs (12 hours) Temp Pulse Resp BP Pulse Ox 07/18/18 07:18 98.1 F 71 17 177/93 H 99 07/18/18 04:00 98.2 F 69 20 157/74 H Weight Weight 144 lb I&O: 07/17/18 07/18/18 07/19/18 06:59 06:59 06:59 Intake Total 1450 Output Total 600 Balance 850 Result Diagrams: 07/16/18 09:23 07/16/18 09:23 Phys Exam - Physical Examination Neck: no JVD Respiratory: clear to auscultation bilateral Cardiovascular: RRR, no significant murmur Gastrointestinal: soft, positive bowel sounds Musculoskeletal: no edema Dx/Plan (1) Acute on chronic diastolic (congestive) heart failure Code(s): I50.33 - ACUTE ON CHRONIC DIASTOLIC (CONGESTIVE) HEART FAILURE Status : Acute (2) Acute respiratory failure with hypoxia Code(s): J96.01 - ACUTE RESPIRATORY FAILURE WITH HYPOXIA Status: Acute (3) Atrial fibrillation and flutter Code(s): I48.91 - UNSPECIFIED ATRIAL FIBRILLATION; I48.92 - UNSPECIFIED ATRIAL FLUTTER Status: Chronic Comment: In and out of NSR/A-fib (4) CKD (chronic kidney disease), stage III Code(s): N18.3 - CHRONIC KIDNEY DISEASE, STAGE 3 (MODERATE) Status: Chronic (5) COPD (chronic obstructive pulmonary disease) Status: Acute Qualifiers: COPD type: emphysema Emphysema type: unspecified Qualified Code(s): J43.9 - Emphysema, unspecified (6) Polymyalgia rheumatica Code(s): M35.3 - POLYMYALGIA RHEUMATICA Status: Chronic (7) Sinus pause Code(s): I45.5 - OTHER SPECIFIED HEART BLOCK Status: Acute (8) Coronary arteriosclerosis Status: Chronic (9) Hypertension Code(s): I10 - ESSENTIAL (PRIMARY) HYPERTENSION Status: Chronic Qualifiers: Hypertension type: essential hypertension (10) Hypothyroidism Code(s): E03.9 - HYPOTHYROIDISM, UNSPECIFIED Status: Chronic Qualifiers: Hypothyroidism type: unspecified - Plan pacemaker today -: cont multaq -: off anticoag for procedure * .
[2018-07-18] MEDS: HYPROMELLOSE EA EYE SCH ×2 (08:17→08:18)
[2018-07-18] MEDS: Aspirin 81 mg Enteric Coated Tablet PO SCH (08:59)
[2018-07-18] MEDS: predniSONE 5 MG TAB PO SCH ×2 (09:00→21:23)
[2018-07-18] MEDS: Atorvastatin Calcium 40 MG TAB PO SCH (09:00)
[2018-07-18] MEDS: Dronedarone HCl 400 MG TAB PO SCH ×2 (09:00→17:08)
[2018-07-18] MEDS: Nebivolol HCl 5 MG TAB PO SCH (09:00)
--- NOTE | 2018-07-18 09:43 | PRG ---
DATE OF SERVICE: 07/18/2018 SUBJECTIVE: The patient is doing well. She is awake, pacemaker placement. OBJECTIVE: VITAL SIGNS: Temperature 98.1, pulse 71, respirations 17, O2 saturation 99% on room air, and blood pressure 177/93. HEENT: Unremarkable. NECK: No JVD. LUNGS: Few inspiratory crackles in both bases. CARDIAC: S1 and S2. Regular. ABDOMEN: Soft. EXTREMITIES: No edema. ASSESSMENT: 1. Symptomatic bradycardia. 2. Stable chronic obstructive pulmonary disease. PLAN: Continue nebulization treatments. Job ID: [id number]
[2018-07-18] MEDS ORDERED: Midazolam HCl 2 mg/2 ml Vial ONE (11:46)
[2018-07-18] MEDS ORDERED: Fentanyl 100 MCG/2 ML VIAL ONE (11:46)
[2018-07-18] MEDS ORDERED: Gentamicin 80 MG/2 ML VIAL ONE (11:49)
[2018-07-18] MEDS ORDERED: Clindamycin/D5W 600 mg/50 ml Premix Bag ONE (11:49)
[2018-07-18] MEDS ORDERED: Levofloxacin 500 mg/D5W 100 ml Premix Bag ONE (11:50)
[2018-07-18] MEDS ORDERED: Acetaminophen/Codeine 30-300mg Tablet PO PRN (13:40)
[2018-07-18] MEDS: Torsemide 10 MG TAB PO SCH (14:48)
--- NOTE | 2018-07-18 14:52 | RAD ---
PORTABLE CHEST 1 VIEW: Date; 07/18/18 Time: 1401 hours HISTORY: Post cardiac device placement. FINDINGS/IMPRESSION: Comparison made to exam of 07/15/18. There has been interval placement of a left-sided pacemaker device with bipolar leads in the right at rium and right ventricle. No pneumothoraces are seen. POS: C
--- NOTE | 2018-07-18 16:05 | PDOC.EVN ---
Event Note - Event Note Event Note: postpacemaker placement,resting comfortably, in RSR
--- NOTE | 2018-07-18 16:20 | CCL ---
CARDIOLOGY PROCEDURE NOTE: Date: 07/18/18 PROCEDURE: Dual chamber pacemaker insertion. INDICATION FOR PROCEDURE: 82-year-old female with sinus node dysfunction, with intermittent atrial fibrillation and severe paus es greater than 5 seconds. She was advised to undergo dual chamber pacemaker insertion. PROCEDURE DETAILS: The patient was taken to the cardiac research lab assistant, where she underwent the procedure today without diffic ulties or complications. She was implanted with a dual chamber pacemaker from [employer] with atrial t herapies. This is an Cassel XT dual chamber pacemaker. Upper rate set at 120 and lower rate set at 60. There were no difficulties or complications encountered. There were two screw-in leads placed, one i n the atrium and one in the ventricle. The patient was given 2 mg of Versed for conscious sedation. C onscious sedation time was approximately 20 minutes. There were no difficulties or complications with out the conscious sedation. Throughout the procedure, she was monitored by an independent observer krishan [email or web address] for heart rate, blood pressure, and O2 saturations, and these all remained stable.
[2018-07-18] MEDS ORDERED: Temazepam 15 MG CAP PO PRN (17:36)
[2018-07-18] MEDS: Amitriptyline HCl 10 MG TAB PO SCH (21:22)
[2018-07-18] MEDS: Ezetimibe 10 MG TAB PO SCH (21:22)
[2018-07-19] MEDS: Levothyroxine Sodium 50 MCG TAB PO SCH (05:28)
--- NOTE | 2018-07-19 08:47 | PDOC.PN ---
- Subjective Encounter Start Date: 07/19/18 Encounter Start Time: 08:46 Subjective: no sob, dizziness - Objective MAR Reviewed: Yes Vital Signs & Weight: Vital Signs (12 hours) Temp Pulse Resp BP Pulse Ox 07/19/18 08:24 97.5 F L 70 18 138/65 97 07/19/18 03:50 98.1 F 65 18 152/70 H 96 Weight Admit Weight 144 lb Weight 144 lb I&O: 07/18/18 07/19/18 07/20/18 06:59 06:59 06:59 Intake Total 1450 1360 Output Total 600 1500 Balance 850 -140 Result Diagrams: 07/16/18 09:23 07/16/18 09:23 Radiology Reviewed by me: Yes (cxr- pacemaker left upper chest, no pneumothorax) Phys Exam - Physical Examination Neck: no JVD Respiratory: clear to auscultation bilateral Cardiovascular: RRR, no significant murmur Gastrointestinal: soft, positive bowel sounds Musculoskeletal: no edema Dx/Plan (1) Acute on chronic diastolic (congestive) heart failure Code(s): I50.33 - ACUTE ON CHRONIC DIASTOLIC (CONGESTIVE) HEART FAILURE Status : Acute (2) Acute respiratory failure with hypoxia Code(s): J96.01 - ACUTE RESPIRATORY FAILURE WITH HYPOXIA Status: Acute (3) Atrial fibrillation and flutter Code(s): I48.91 - UNSPECIFIED ATRIAL FIBRILLATION; I48.92 - UNSPECIFIED ATRIAL FLUTTER Status: Chronic Comment: In and out of NSR/A-fib (4) CKD (chronic kidney disease), stage III Code(s): N18.3 - CHRONIC KIDNEY DISEASE, STAGE 3 (MODERATE) Status: Chronic (5) COPD (chronic obstructive pulmonary disease) Status: Acute Qualifiers: COPD type: emphysema Emphysema type: unspecified Qualified Code(s): J43.9 - Emphysema, unspecified (6) Polymyalgia rheumatica Code(s): M35.3 - POLYMYALGIA RHEUMATICA Status: Chronic (7) Sinus pause Code(s): I45.5 - OTHER SPECIFIED HEART BLOCK Status: Acute (8) Coronary arteriosclerosis Status: Chronic (9) Hypertension Code(s): I10 - ESSENTIAL (PRIMARY) HYPERTENSION Status: Chronic Qualifiers: Hypertension type: essential hypertension (10) Hypothyroidism Code(s): E03.9 - HYPOTHYROIDISM, UNSPECIFIED Status: Chronic Qualifiers: Hypothyroidism type: unspecified - Plan monitor- RSR -: post pacer, cont multaq -: discuss gregorio, KATEY planning , etc with cardiology * .
--- NOTE | 2018-07-19 09:14 | PRG ---
DATE OF SERVICE: 07/19/2018 SUBJECTIVE: The patient is doing well, had no acute complaints. OBJECTIVE: VITAL SIGNS: Temperature 98.1, pulse 65, respirations 18, O2 saturation 96%, and blood pressure 152/70. HEENT: Unremarkable. NECK: No JVD. LUNGS: Clear. CARDIAC: S1, S2. Regular. Left upper quadrant pacemaker noted. ABDOMEN: Soft. EXTREMITIES: No edema. ASSESSMENT: 1. Symptomatic bradycardia. 2. Stable chronic obstructive pulmonary disease. PLAN: Continue nebulization treatments. I expect her to discharge soon. I have asked her to follow up in the office in 3 months. Job ID: [id number]
[2018-07-19] MEDS: Losartan 25 MG TAB PO SCH (09:30)
[2018-07-19] MEDS: Nebivolol HCl 5 MG TAB PO SCH (09:30)
[2018-07-19] MEDS: Aspirin 81 mg Enteric Coated Tablet PO SCH (09:30)
[2018-07-19] MEDS: Atorvastatin Calcium 40 MG TAB PO SCH (09:30)
[2018-07-19] MEDS: Dronedarone HCl 400 MG TAB PO SCH (09:30)
[2018-07-19] MEDS: predniSONE 5 MG TAB PO SCH (09:31)
--- NOTE | 2018-07-19 10:28 | PDOC.CTH ---
Cardiology Progress Note - Subjective The pt seen and examined. No overnight events. No cardiac complaints. - Objective Vital Signs Temp Pulse Resp BP Pulse Ox 07/19/18 08:24 97.5 F L 70 18 138/65 97 07/19/18 03:50 98.1 F 65 18 152/70 H 96 Admit Weight 144 lb Weight 144 lb 07/18/18 07/19/18 07/20/18 06:59 06:59 06:59 Intake Total 1450 1360 Output Total 600 1500 Balance 850 -140 - Physical Examination General/Neuro: alert & oriented x3 Neck: no JVD present Lungs: CTA Heart: RRR Abdomen: soft Extremities: other: (No edema) - Telemetry Telemetry Rhythm: SR - Labs Result Diagrams: 07/16/18 09:23 07/16/18 09:23 Troponin/CKMB Troponin I 0.012 ng/mL (< 0.028) 07/15/18 19:39 - Assessment/Plan 1. > 5 sec pauses with S/p PM placement on 07/19/2018 - No drainage or swelling ; mild hematoma; 2. Afib with RVR - remains in SR; on Multaq and Bystolic; resume Eliquis 5mg BID from today 3. HTN - stable 4. CKD stage 3 - 5. COPD - stable with RA; the pt will f/u with Dr Butcher within 3 months as outpt. 6. Hypothyroidism MAR reviewed * Echo on 07/16/2018 with EF 60-65%, diastolic dysfunction, mod MR, and mod- severe TR. * From Cardiac standpoint, the pt is stable to d/c home. The pt will f/u with Dr Aranda's office within 10 days for Hospital F/u and the PM site check. Then , the pt will F/u with Dr Carey' office within 3 months for initial PM interrogation at her office. Pt. seen and eval. by me. I agree with the A/P by the TINTER PHOTOGRAPH. Chest clear. RRR. Review of Systems - Review of Systems Constitutional: reports: no symptoms reported EENTM: reports: no symptoms reported Respiratory: reports: no symptoms reported Cardiac (ROS): reports: no symptoms reported ABD/GI: reports: no symptoms reported : reports: no symptoms reported Musculoskeletal: reports: no symptoms reported Skin: reports: no symptoms reported
[2018-07-19] MEDS ORDERED: Apixaban 5 MG TAB PO SCH ×2 (10:45→21:00)
[2018-07-19] MEDS: Torsemide 10 MG TAB PO SCH (11:19)
--- NOTE | 2018-07-19 11:42 | DIS ---
DATE OF ADMISSION: 07/15/2018 DATE OF DISCHARGE: 07/19/2018 PRIMARY CARE PHYSICIAN: Dr. Kevin Rodríguez. DISPOSITION: Discharged home. FINAL DIAGNOSES: 1. Atrial fibrillation with rapid ventricular response, sinus pauses up to 5 seconds. 2. Hypertension. 3. Coronary artery disease. 4. Chronic kidney disease stage 3. 5. Chronic obstructive pulmonary disease. 6. Diastolic heart failure. 7. Hypothyroidism. 8. Polymyalgia rheumatica. 9. Dyslipidemia. DISCHARGE MEDICATIONS: 1. Multaq 400 mg twice a day. 2. Cozaar 50 mg a day. 3. Amitriptyline 10 mg at bedtime. 4. Lipitor 40 mg a day. 5. Aspirin 81 mg a day. 6. Eliquis 5 mg twice a day. 7. Prednisone 10 mg in the morning, 2.5 mg at bedtime. 8. Bystolic 5 mg a day. 9. Zetia 10 mg a day. 10. Ventolin HFA 2 puffs q.6 hours p.r.n. 11. Torsemide 10 mg a day. 12. Synthroid 50 mcg a day. 13. Anoro Ellipta one inhalation daily. ALLERGIES: 1. PENICILLINS. 2. COMPAZINE. 3. ZOLOFT. DIET: Heart healthy. PENDING AT TIME OF DISCHARGE: Nothing. CODE STATUS: Full. HOSPITAL COURSE: The patient presented to [facility], was referred to the [facility] by the emergency room for atrial fibrillation with rapid ventricular response, placed on IV Cardizem. The patient had a previous history of ablation. She was on Eliquis. The patient also had a 5-second pause. Dr. Kenneth Harding, was consulted for Cardiology. Her Eliquis was stopped. She was placed on Lovenox. She had spontaneously converted to sinus rhythm, was put on Multaq with maintenance of her sinus rhythm. Because of the sinus pause, a pacemaker was placed by Dr. Edward Carey on 07/18/2018. The Eliquis has now been reinstituted. The patient is being discharged home for followup with PCP in one week, to follow up with Dr. Harding. At time of discharge, she was in regular sinus rhythm. Cardiorespiratory exam was unremarkable. During hospital stay, her initial white count was 14.8, followup day level was 13.0, hemoglobin was normal. Platelet count was normal. INR was 1.3. Comprehensive metabolic profile showed only significant abnormality with a creatinine of 1.21 and 1.13, consistent with chronic kidney disease stage 3. TSH was normal. Troponins were normal x2. At the time of discharge, the patient was doing well. Prescriptions have been written. 35 minutes spent preparing this discharge. Job ID: [id number]
[2018-07-19 12:28] VITALS: BP 135/63; TEMP 98
--- NOTE | 2018-07-19 16:18 | EKG ---
Test Reason : Blood Pressure : / mmHG Vent. Rate : 066 BPM Atrial Rate : 066 BPM P-R Int : 190 ms QRS Dur : 086 ms QT Int : 412 ms P-R-T Axes : 069 044 027 degrees QTc Int : 431 ms Normal sinus rhythm with sinus arrhythmia Normal ECG Confirmed by ISABEL MOTLEY ([id number]) on 07/19/2018 4:18:24 PM Referred By: CAMRON Confirmed By:ISABEL MOTLEY
== END 2018-07-19 13:31 | disposition home or self-care (01) | DRG 242 ==
LOC: ERS 12:38 → 2NO 16:58
PROVIDERS: ADMIT Internal Medicine; ATTEND Internal Medicine
PROC: 0JH606Z Insertion of Pacemaker, Dual Chamber into Chest Subcutaneous Tissue and Fascia, Open Approach (ICD-10-PCS; principal; 2018-07-18)
PROC: 02HK3JZ Insertion of Pacemaker Lead into Right Ventricle, Percutaneous Approach (ICD-10-PCS; 2018-07-18)
PROC: 02H63JZ Insertion of Pacemaker Lead into Right Atrium, Percutaneous Approach (ICD-10-PCS; 2018-07-18)
DX: I49.5 Sick sinus syndrome (principal); J96.01 Acute respiratory failure with hypoxia; I50.33 Acute on chronic diastolic (congestive) heart failure; I13.0 Hypertensive heart and chronic kidney disease with heart failure and stage 1 through stage 4 chronic kidney disease, or unspecified chronic kidney disease; I48.0 Paroxysmal atrial fibrillation; N18.3 Chronic kidney disease, stage 3 (moderate); J44.9 Chronic obstructive pulmonary disease, unspecified; I25.10 Atherosclerotic heart disease of native coronary artery without angina pectoris; M35.3 Polymyalgia rheumatica; E78.00 Pure hypercholesterolemia, unspecified; I25.2 Old myocardial infarction; E03.9 Hypothyroidism, unspecified; Z87.891 Personal history of nicotine dependence; Z95.5 Presence of coronary angioplasty implant and graft; Z88.0 Allergy status to penicillin; Z88.8 Allergy status to other drugs, medicaments and biological substances; Z79.01 Long term (current) use of anticoagulants; Z79.52 Long term (current) use of systemic steroids
CPT/HCPCS: 33208; 36415; 36416; 71045; 80048; 80053; 81003; 84443; 84484; 85025; 85610; 85730; 87086; 93005; 93010; 93306; 93798; 96365; 96376; 99152; 99153; C1785; C1898; J1580; J1650; J1956; J2250; J3010; J3370; J3490; J7512; J7620

== ENCOUNTER 2018-09-14 09:19 | Emergency (ER) | payer MEDICARE, OTHER ==
[2018-09-14 10:30] LABS: #Eosinphils 0.1 thou/uL (0.0-0.7); #Lymphocytes 0.9 thou/uL (1.20-3.40); #Neutrophils 7.5 thou/uL (1.40-6.50); %Basophils 0.2 % (0.0-1.0); %Eosinophils 1.5 % (0.0-10.0); %Lymphocytes 9.1 % (21.0-51.0); %Monocytes 10.1 % (0.0-10.0); %Neutrophils 79.1 % (42.0-75.0); Hemoglobin 9.8 g/dL (12.0-16.0); Mean Corpuscular HGB CONC 31.1 g/dL (32.0-36.0); Mean Corpuscular Hemoglobin 26.6 pg (27.0-31.0); Mean Corpuscular Volume 85.5 fL (78.0-98.0); Mean Platelet Volume 6.4 fL (7.4-10.4); Platelet Count 273 thou/uL (130-400); RBC Distribution Width 14.6 % (11.5-14.5); White Blood Cell (WBC) Count 9.5 thou/uL (4.8-10.8)
[2018-09-14] MEDS ORDERED: Ondansetron PF 4 MG/2 ML Vial ONE (10:43)
[2018-09-14] MEDS ORDERED: Morphine 4 MG/ML VIAL ONE (10:43)
[2018-09-14 10:51] LABS: ALT (SGPT) 19 U/L (8-55); AST (SGOT) 21 U/L (5-34); Alkaline Phosphatase 52 U/L (40-150); Anion Gap 10 mmol/L (10-20); BUN (Urea Nitrogen) 17 mg/dL (9.8-20.1); Bilirubin, Total 0.5 mg/dL (0.2-1.2); Calc. Creatinine Clearance 0 mL/min (70-130); Calcium 9.9 mg/dL (7.8-10.44); Carbon Dioxide 25 mmol/L (23-31); Chloride 97 mmol/L (98-107); Estimated GFR-MDRD 52; Globulin 2.7 g/dL (2.4-3.5); Glucose 107 mg/dL (83-110); Potassium 3.4 mmol/L (3.5-5.1); Protein, Total 5.7 g/dL (6.0-8.3); Sodium 129 mmol/L (136-145)
[2018-09-14] MEDS ORDERED: Ondansetron ODT 4 MG TAB ONE (11:29)
[2018-09-14] MEDS ORDERED: predniSONE 20 MG TAB ONE (11:29)
[2018-09-14] MEDS ORDERED: HYDROcodone/Acetaminophen 10/325 mg Tablet ONE (11:29)
== END 2018-09-14 17:21 ==
LOC: ERS 09:19
DX: M06.9 Rheumatoid arthritis, unspecified (principal); I25.2 Old myocardial infarction; J44.9 Chronic obstructive pulmonary disease, unspecified; I11.0 Hypertensive heart disease with heart failure; I50.9 Heart failure, unspecified; I48.91 Unspecified atrial fibrillation; E03.9 Hypothyroidism, unspecified; Z79.891 Long term (current) use of opiate analgesic; Z79.899 Other long term (current) drug therapy
CPT/HCPCS: 36415; 80053; 85025; 96374; J2270; J2405; J7512; Q0162

== ENCOUNTER 2019-01-05 14:31 | Inpatient (IN) | payer MEDICARE, OTHER ==
[2019-01-05 15:30] LABS: #Basophils 0.1 thou/uL (0.0-0.2); #Lymphocytes 0.7 thou/uL (1.20-3.40); #Monocytes 0.3 thou/uL (0.11-0.59); #Neutrophils 3.6 thou/uL (1.40-6.50); %Basophils 1.2 % (0.0-1.0); %Eosinophils 0.7 % (0.0-10.0); %Monocytes 5.9 % (0.0-10.0); %Neutrophils 77.3 % (42.0-75.0); Hemoglobin 9.8 g/dL (12.0-16.0); Mean Corpuscular HGB CONC 31.5 g/dL (32.0-36.0); Mean Corpuscular Hemoglobin 26.2 pg (27.0-31.0); Mean Platelet Volume 7.4 fL (7.4-10.4); Platelet Count 239 thou/uL (130-400); RBC Distribution Width 18.8 % (11.5-14.5); Red Blood Cell (RBC) Count 3.75 mill/uL (4.20-5.40); White Blood Cell (WBC) Count 4.7 thou/uL (4.8-10.8)
[2019-01-05 15:52] LABS: ALT (SGPT) 14 U/L (8-55); AST (SGOT) 21 U/L (5-34); Albumin 3.8 g/dL (3.4-4.8); Alkaline Phosphatase 76 U/L (40-150); Anion Gap 14 mmol/L (10-20); BUN (Urea Nitrogen) 26 mg/dL (9.8-20.1); Bilirubin, Total 0.5 mg/dL (0.2-1.2); CK (CPK) 18 U/L (29-168); Calc. Creatinine Clearance 0 mL/min (70-130); Calcium 10.9 mg/dL (7.8-10.44); Carbon Dioxide 27 mmol/L (23-31); Chloride 97 mmol/L (98-107); Estimated GFR-MDRD 37; Glucose 132 mg/dL (83-110); Lipase 23 U/L (8-78); Potassium 3.8 mmol/L (3.5-5.1); Protein, Total 6.8 g/dL (6.0-8.3); Sodium 134 mmol/L (136-145)
[2019-01-05 16:13] LABS: CKMB 1.2 ng/mL (0-6.6)
--- NOTE | 2019-01-05 17:01 | RAD ---
RADIOGRAPH CHEST 1 VIEW: DATE: 01/05/2019. HISTORY: An 83-year-old female with chest pain and atrial fibrillation. FINDINGS: There is hyperinflation of the lungs, consistent with COPD. There is no evidence of air space densit y, pneumothorax, or pulmonary edema. The lateral costophrenic angles are sharp. There is no cardiom egaly. There is a dual-lead left subclavian pacemaker. There is an S-shaped scoliosis of the thorac olumbar spine. There is no interval change compared to 09/15/2018. IMPRESSION: 1) No acute pulmonary findings. 2) Emphysema. 3) Pacemaker. 4) Scoliosis. jn [] POS: [facility]
[2019-01-05 17:34] LABS: INR-International Normal Ratio 1.2; PTT 32.5 SEC (22.9-36.1); Prothrombin Time 14.8 SEC (12.0-14.7)
[2019-01-05 19:45] LABS: CKMB 1.2 ng/mL (0-6.6)
[2019-01-05] MEDS ORDERED: Ondansetron PF 4 MG/2 ML Vial IVP PRN (21:02)
[2019-01-05] MEDS ORDERED: Acetaminophen 325 MG TAB PO PRN (21:02)
[2019-01-05] MEDS ORDERED: Ondansetron ODT 4 MG TAB SL PRN (21:02)
[2019-01-05] MEDS ORDERED: Aspirin Chewable 81 MG TAB ONE (21:10)
[2019-01-05 21:57] VITALS: BMI 20.7
[2019-01-05 23:31] LABS: Troponin I 0.061 ng/mL (< 0.028)
[2019-01-05] MEDS ORDERED: PROVENTIL INHALER 6.7 G (200 INHALATIONS) INH PRN (23:38)
[2019-01-05] MEDS ORDERED: cloNIDine 0.1 MG TAB PO PRN (23:38)
[2019-01-05] MEDS ORDERED: Nitroglycerin 0.4 MG TAB (25 Tab Bottle) SL PRN (23:38)
[2019-01-05] MEDS ORDERED: traMADol HCl 50 MG TAB PO PRN (23:38)
[2019-01-05] MEDS ORDERED: Ondansetron ODT 8 MG TAB PO PRN (23:38)
--- NOTE | 2019-01-06 00:39 | HP ---
TIME OF EVALUATION: 11:30 p.m. PRIMARY CARE DOCTOR: Dr. Rodríguez. CODE STATUS: Full code. METAL CASKET ASSEMBLER: Dr. Aranda. CHIEF COMPLAINT: Chest pain. HISTORY OF PRESENT ILLNESS: This is an 83-year-old female patient with past medical history of coronary artery disease, atrial fibrillation, hypothyroidism, diverticulitis, hypertension, COPD, CHF, came to the hospital after having moderate sudden onset, gradually worsening chest pain associated with change in breathing and associated with shortness of breath, started around 01:00 p.m. and for that reason, she decided to come to the hospital, reported she has been having paroxysmal atrial fibrillation on and off once a week, Dr. Aranda has been following her and has been adjusting her medications. No clear triggers, no alleviating factors. By the time of my examination, pain is relieved. We will consult Dr. Aranda for any further recommendation and workup. REVIEW OF SYSTEMS: All systems were reviewed and negative except for the findings mentioned above. PAST MEDICAL HISTORY: As mentioned in the HPI. FAMILY HISTORY: Reviewed, noncontributory to current presentation. PAST SURGICAL HISTORY: Colon resection, hysterectomy, pacemaker, ovarian cancer resection. PSYCHIATRIC HISTORY: No previous psych history. SOCIAL HISTORY: Former smoker, smoked cigarettes for more than 10 years. No alcohol. No drugs. KNOWN ALLERGIES: Compazine, penicillin, Zoloft. REPORTED MEDICATIONS: 1. Prednisone. 2. Metoprolol. 3. Eliquis. 4. Zetia. 5. Atorvastatin. 6. Aspirin. 7. Multaq. 8. Sulfasalazine. 9. Clonidine. 10. Anoro Ellipta. 11. Synthroid. 12. Vitamin D3. 13. Amitriptyline. 14. Torsemide. 15. Folic acid. 16. Potassium chloride. PHYSICAL EXAMINATION: VITAL SIGNS: On presentation, heart rate 99, respiratory rate was 19, oxygen saturation was 94% on room air. GENERAL: The patient is alert, oriented, not in acute distress. HEENT: Eyes, normal conjunctivae. Moist oral mucosa. Anicteric. No JVD. RESPIRATORY: Bilateral air entry. No rales. No wheezes. Symmetric expansion. CARDIOVASCULAR: Normal rate, regular rhythm. No murmurs. No gallop. No edema. ABDOMEN: Soft. Normal bowel sounds. MUSCULOSKELETAL: Baseline range of motion and strength. SKIN: Warm, intact. No pallor. No rash. No redness. Capillary refill seems to be intact. NEUROLOGIC: No evidence of any new focal weakness. Cranial nerves seem to be intact. PSYCH: The patient is in good mood. No anxiety. Optimal judgment. The patient is hard of hearing. DIAGNOSTIC STUDIES: EKG was reviewed. The patient has sinus arrhythmia at the rate of 98. Chest x-ray was reviewed and showed no acute pulmonary findings; emphysema, pacemaker, scoliosis. LABORATORY DATA: Labs were reviewed. The patient has white count 4.7, hemoglobin 9.8, MCV 83, platelet count 239. The hemoglobin was all the same in previous test. Coagulation; PT 14.8, INR 1.2, and PTT 32.5. Sodium 134, potassium 3.8, chloride 97, carbon dioxide 27, anion gap 14, BUN 26, creatinine 1.35, the previous one was 1.16, GFR 37, glucose 132, calcium 10.9, total bilirubin 0.5. LFTs were negative. CK was 18. Troponin was positive x3. Beta-natriuretic peptide 348.3. Serum total protein 6.8, albumin 3.8, globulin 3.0, albumin-globulin ratio is 1.3. Lipase 23. ASSESSMENT AND PLAN: The patient will be placed in the hospital with following medical problems: 1. Chest pain, rule out acute coronary syndrome. The patient has a strong history of coronary artery disease and also history of paroxysmal atrial fibrillation, following with Dr. Aranda. We will consult Dr. Aranda for any further recommendation for any treatment or any workup as inpatient. We will monitor on tele. We will trend troponins. 2. Chronic normocytic anemia, could be related to underlying chronic kidney disease. This is stable. Can be followed as outpatient. 3. Hyponatremia, sodium 134, this is mild, no need for any acute intervention at this point. We will monitor and replace as needed. 4. Chronic kidney disease that is stage 3 with GFR 37. We will monitor kidney function and we will treat accordingly. Seems to be stable from before. 5. Hyperglycemia. No history of diabetes. This may be due to acute physical distress. We will use a steroid. We will monitor. We will treat accordingly. 6. Hypercalcemia. This is mild, we will hydrate with caution. We will monitor. 7. Mildly elevated troponins, this ranged from 0.029 to 0.061. We will follow with Dr. Aranda's recommendation. This could be secondary to coronary artery disease or underlying kidney problems. 8. Hypothyroidism. Continue hormone replacement. 9. Controlled hypertension. Reconcile home medications. This is chronic, seems to be stable. 10. History of chronic obstructive pulmonary disease, this is chronic, seems to be stable, reconcile home medications. 11. History of paroxysmal atrial fibrillation and flutter, and Dr. Aranda has been changing the medications the last week, adjusted the doses, we will follow his recommendation for any further treatment. 12. Chronic diastolic dysfunction, this is stable, reconcile home medications. Job ID: [id number]
[2019-01-06] MEDS ORDERED: traZODone HCl 50 MG TAB PO SCH (00:45)
[2019-01-06] MEDS: Nitroglycerin 2% Ointment 1 INCH/1 GM Packet TOP SCH ×4 (01:06→21:42)
[2019-01-06] MEDS ORDERED: Amitriptyline HCl 10 MG TAB PO SCH ×2 (02:15→21:00)
[2019-01-06] MEDS: Levothyroxine Sodium 50 MCG TAB PO SCH (05:41)
[2019-01-06 06:00] LABS: #Eosinphils 0.1 thou/uL (0.0-0.7); #Lymphocytes 1.3 thou/uL (1.20-3.40); #Monocytes 0.4 thou/uL (0.11-0.59); #Neutrophils 3.2 thou/uL (1.40-6.50); %Basophils 0.3 % (0.0-1.0); %Eosinophils 2.2 % (0.0-10.0); %Lymphocytes 25.5 % (21.0-51.0); %Monocytes 7.4 % (0.0-10.0); %Neutrophils 64.6 % (42.0-75.0); Hemoglobin 7.9 g/dL (12.0-16.0); Mean Corpuscular HGB CONC 31.1 g/dL (32.0-36.0); Mean Corpuscular Hemoglobin 25.8 pg (27.0-31.0); Mean Corpuscular Volume 82.9 fL (78.0-98.0); Mean Platelet Volume 7.2 fL (7.4-10.4); Platelet Count 203 thou/uL (130-400); RBC Distribution Width 18.5 % (11.5-14.5); Red Blood Cell (RBC) Count 3.05 mill/uL (4.20-5.40)
[2019-01-06 06:26] LABS: Anion Gap 8 mmol/L (10-20); BUN (Urea Nitrogen) 27 mg/dL (9.8-20.1); Calc. Creatinine Clearance 32 mL/min (70-130); Calcium 10.2 mg/dL (7.8-10.44); Carbon Dioxide 26 mmol/L (23-31); Chloride 103 mmol/L (98-107); Estimated GFR-MDRD 47; Glucose 93 mg/dL (83-110); Potassium 3.5 mmol/L (3.5-5.1); Sodium 133 mmol/L (136-145)
[2019-01-06] MEDS: Acetaminophen/Codeine 30-300mg Tablet PO SCH (08:33)
[2019-01-06] MEDS ORDERED: Aspirin 81 mg Enteric Coated Tablet PO SCH (09:00)
[2019-01-06] MEDS ORDERED: Apixaban 2.5 MG TAB PO SCH (09:00)
[2019-01-06] MEDS ORDERED: Non-Formulary Item 1 EACH (Umeclidinium Brm/Vilanterol Tr [Anoro Ellipta] 1 INH) IH SCH (09:00)
[2019-01-06] MEDS: sulfaSALAzine 500 MG TAB PO SCH ×2 (09:37→17:51)
[2019-01-06] MEDS: Ezetimibe 10 MG TAB PO SCH (09:37)
[2019-01-06] MEDS: predniSONE 5 MG TAB PO SCH (09:37)
[2019-01-06] MEDS: Potassium Chloride 10 MEQ TAB PO SCH (09:38)
[2019-01-06] MEDS: Atorvastatin Calcium 40 MG TAB PO SCH (09:38)
[2019-01-06] MEDS: Folic Acid 1 MG TAB PO SCH (09:38)
[2019-01-06] MEDS: Dronedarone HCl 400 MG TAB PO SCH ×2 (09:38→17:51)
[2019-01-06] MEDS: HYPROMELLOSE EA EYE SCH ×4 (09:39→21:37)
[2019-01-06] MEDS: ANORO ELIPTA INH SCH (09:39)
[2019-01-06] MEDS: Torsemide 10 MG TAB PO SCH (10:57)
--- NOTE | 2019-01-06 15:33 | PDOC.EVN ---
Event Note - Event Note Event Note: DC SUMMARY #[id number]
[2019-01-06] MEDS ORDERED: Iron Sucrose Complex 400 MG in Sodium Chloride 0.9% 250 ML 250 ML IVPB SCH (15:45)
--- NOTE | 2019-01-06 16:17 | PDOC.HOSPP ---
- Subjective Encounter Date: 01/06/19 Encounter Time: 16:14 Subjective: Patient seen and examined, feels more chest pain on going, family at bedside, all questions answered. - Objective Vital Signs & Weight: Vital Signs (12 hours) Temp Pulse Resp BP Pulse Ox 01/06/19 12:03 97.9 F 68 16 125/57 L 95 01/06/19 07:44 98.0 F 75 16 159/70 H 95 Weight Weight 117 lb I&O: 01/05/19 01/06/19 01/07/19 06:59 06:59 06:59 Intake Total 540 720 Output Total 800 Balance -260 720 Result Diagrams: 01/06/19 05:42 01/06/19 05:42 ROS - Medication Medications: Active Medications Generic Name Dose Route Start Last Admin Trade Name Freq PRN Reason Stop Dose Admin Acetaminophen/Codeine Phosphate 2 tab 01/06/19 09:00 01/06/19 08:33 Tylenol #3 PO 2 tab DAILY JOLENE Administration Atorvastatin Calcium 40 mg 01/06/19 09:00 01/06/19 09:38 Lipitor PO 40 mg DAILY JOLENE Administration Cholecalciferol 2,000 units 01/06/19 09:00 01/06/19 09:37 Vitamin D3 PO 2,000 units DAILY JOLENE Administration Dronedarone 400 mg 01/06/19 08:00 01/06/19 09:38 Multaq PO 400 mg BID-WM JOLENE Administration Ezetimibe 10 mg 01/06/19 09:00 01/06/19 09:37 Zetia PO 10 mg DAILY JOLENE Administration Folic Acid 2 mg 01/06/19 09:00 01/06/19 09:38 Folvite PO 2 mg DAILY JOLENE Administration Levothyroxine Sodium 50 mcg 01/06/19 06:00 01/06/19 05:41 Synthroid PO 50 mcg 0600 JOLENE Administration Nitroglycerin 0.5 inch 01/05/19 22:00 01/06/19 12:59 Nitro-Bid 2% Ointment TOP 01/08/19 06:18 Not Given Q8HR [facility] Hypromellose/Pf [ 1 each 01/06/19 09:00 01/06/19 12:58 Retaine 0.3% [facility] EA EYE 1 each Eye Drops] 1 Drop QID JOLENE Administration Anoro Elipta 0 each 01/06/19 09:00 01/06/19 09:39 INH 1 each DAILY JOLENE Administration Potassium Chloride 10 meq 01/06/19 09:00 01/06/19 09:38 Klor-Con 10 PO 10 meq DAILY JOLENE Administration Prednisone 10 mg 01/06/19 09:00 01/06/19 09:37 Prednisone PO 10 mg DAILY JOLENE Administration Sulfasalazine 1,500 mg 01/06/19 09:00 01/06/19 09:37 Azulfidine PO 1,500 mg BID JOLENE Administration Torsemide 30 mg 01/06/19 09:00 01/06/19 10:57 Demadex PO 30 mg DAILY JOLENE Administration - Exam NAD, awake alert Eye: PERRL, anicteric sclera ENT: normocephalic atraumatic, no oropharyngeal lesions Neck: supple, symmetric, no JVD Heart: RRR, no murmur, no gallops Respiratory: CTAB, no wheezes, no rales, no ronchi Gastrointestinal: soft, non-tender, non-distended Hosp A/P (1) Acute respiratory failure with hypoxia Code(s): J96.01 - ACUTE RESPIRATORY FAILURE WITH HYPOXIA Status: Acute (2) COPD (chronic obstructive pulmonary disease) Status: Acute Qualifiers: (3) NSTEMI (non-ST elevated myocardial infarction) Code(s): I21.4 - NON-ST ELEVATION (NSTEMI) MYOCARDIAL INFARCTION Status: Acute (4) Atrial fibrillation and flutter Code(s): I48.91 - UNSPECIFIED ATRIAL FIBRILLATION; I48.92 - UNSPECIFIED ATRIAL FLUTTER Status: Chronic (5) CKD (chronic kidney disease), stage III Code(s): N18.3 - CHRONIC KIDNEY DISEASE, STAGE 3 (MODERATE) Status: Chronic (6) Hypertension Code(s): I10 - ESSENTIAL (PRIMARY) HYPERTENSION Status: Chronic Qualifiers: (7) Hypothyroidism Code(s): E03.9 - HYPOTHYROIDISM, UNSPECIFIED Status: Chronic Qualifiers: - Plan - original plan was to DC, however, patient's Hgb has dropped 2g from 9.8 to 7.9 - will repeat CBC in AM - will also check guiac - cont with medical management for now - cardio following - change to inpatient - case and plan d/w patient and family at length, they understood and agreed with this plan
--- NOTE | 2019-01-06 16:55 | CON ---
DATE OF CONSULTATION: HISTORY OF PRESENT ILLNESS: Ms. Myers is admitted to the hospital for recurrent episodes of chest pain and pressure at rest, sometimes associated with increased heart rate. Ms. Myers has long history of coronary artery disease. She has undergone cardiac catheterization in the recent past, revealing she has distal atherosclerosis, but no indication for any intervention, that was just done in July. She does have a history of percutaneous coronary interventions, but there was no obstructive stenosis in the major vessels. The patient has had been bothered by recurrent atrial fibrillation despite Multaq. She also has moderate to severe COPD. She quit smoking. She is admitted to the hospital with recurrent episodes of chest pain and pressure at rest and has been found to be abruptly severely anemic. PAST HISTORY: She also has history of a pacemaker insertion by Dr. Carey. REVIEW OF SYSTEMS: CONSTITUTIONAL: Positive for weakness and fatigue. VISION: No changes. HEARING: No changes. PULMONARY: Positive for shortness of breath. GASTROINTESTINAL: No nausea, vomiting, or diarrhea. SKIN: No rashes. NEUROLOGIC: No unilateral weakness or numbness. PSYCHIATRIC: She does have chronic anxiety. PHYSICAL EXAMINATION: GENERAL: This is a pleasant elderly woman, in no distress. VITAL SIGNS: Blood pressure has been variable, 159/70 and then 125/57. Pulse 68, regular. LUNGS: Clear. CARDIAC: Normal S1, normal S2. There is a 2 to 3/6 apical systolic murmur. ABDOMEN: Soft and nontender. EXTREMITIES: No clubbing or cyanosis. There is mild edema. DIAGNOSTIC STUDIES: Echocardiogram done in July revealed an ejection fraction of 60% to 65%, diastolic dysfunction with moderate mitral regurgitation. Also moderate to severe tricuspid insufficiency. EKG reveals normal sinus rhythm, no acute changes. Troponin level 0.061, indeterminate. Creatinine 1.35 on admission, estimated GFR is 37. The patient at home was taking aspirin and reduced dose Eliquis as well as Multaq as well as metoprolol 50 mg a day. ASSESSMENT: 1. Unstable angina, related to underlying fixed coronary artery disease with new onset of anemia. Her hemoglobin has dropped from 9.8 to 7.9 in the course of less than 24 hours. 2. Paroxysmal atrial fibrillation despite Multaq. 3. Chronic obstructive pulmonary disease. 4. Renal failure, stage 3. PLAN: 1. We will stop apixaban and aspirin at the present time. 2. Recheck blood counts. 3. If her blood counts stabilize, we will consider resuming apixaban and stopping the aspirin. 4. May need further GI evaluation. 5. Empirically start Protonix in case it is upper GI blood loss. 6. Discussed other options. She is really a poor candidate for amiodarone with her underlying lung disease, in addition cannot undergo atrial fibrillation ablation if she cannot tolerate Eliquis or other antithrombotic drugs. For now, we will try to increase the beta blockers, continue Multaq. As a last resort, could do AV junction ablation, but this also could be problematic as it would probably worsen her heart failure symptoms as she would be pacemaker dependent, she currently has a narrow complex QRS. The initial plan will be stopping aspirin and apixaban, giving her iron, increase beta-ashley, resume likely apixaban and stop aspirin in a few days if the blood counts stabilize. Job ID: [id number]
[2019-01-06] MEDS ORDERED: Zolpidem Tartrate 5 MG TAB PO PRN (18:40)
[2019-01-07] MEDS: Levothyroxine Sodium 50 MCG TAB PO SCH (03:51)
[2019-01-07 05:26] LABS: #Eosinphils 0.1 thou/uL (0.0-0.7); #Lymphocytes 1.1 thou/uL (1.20-3.40); #Monocytes 0.3 thou/uL (0.11-0.59); #Neutrophils 2.9 thou/uL (1.40-6.50); %Basophils 0.3 % (0.0-1.0); %Lymphocytes 24.9 % (21.0-51.0); %Monocytes 5.7 % (0.0-10.0); %Neutrophils 66.1 % (42.0-75.0); Hemoglobin 7.8 g/dL (12.0-16.0); Mean Corpuscular HGB CONC 31.6 g/dL (32.0-36.0); Mean Corpuscular Hemoglobin 26.4 pg (27.0-31.0); Mean Corpuscular Volume 83.5 fL (78.0-98.0); Mean Platelet Volume 7.2 fL (7.4-10.4); Platelet Count 197 thou/uL (130-400); RBC Distribution Width 18.6 % (11.5-14.5); Red Blood Cell (RBC) Count 2.95 mill/uL (4.20-5.40); White Blood Cell (WBC) Count 4.4 thou/uL (4.8-10.8)
[2019-01-07 05:48] LABS: Anion Gap 10 mmol/L (10-20); BUN (Urea Nitrogen) 22 mg/dL (9.8-20.1); Calc. Creatinine Clearance 30 mL/min (70-130); Calcium 9.9 mg/dL (7.8-10.44); Carbon Dioxide 25 mmol/L (23-31); Chloride 104 mmol/L (98-107); Estimated GFR-MDRD 45; Glucose 85 mg/dL (83-110); Potassium 3.4 mmol/L (3.5-5.1); Sodium 136 mmol/L (136-145)
[2019-01-07] MEDS: Nitroglycerin 2% Ointment 1 INCH/1 GM Packet TOP SCH ×2 (06:25→13:25)
[2019-01-07] MEDS: Atorvastatin Calcium 40 MG TAB PO SCH (08:54)
[2019-01-07] MEDS: Acetaminophen/Codeine 30-300mg Tablet PO SCH (08:55)
[2019-01-07] MEDS: Torsemide 10 MG TAB PO SCH (08:55)
[2019-01-07] MEDS: predniSONE 5 MG TAB PO SCH (08:55)
[2019-01-07] MEDS: Ezetimibe 10 MG TAB PO SCH (08:55)
[2019-01-07] MEDS: Folic Acid 1 MG TAB PO SCH (08:55)
[2019-01-07] MEDS: Dronedarone HCl 400 MG TAB PO SCH (08:57)
[2019-01-07] MEDS: Potassium Chloride 10 MEQ TAB PO SCH (08:57)
[2019-01-07] MEDS: HYPROMELLOSE EA EYE SCH ×2 (08:58→12:13)
[2019-01-07] MEDS: ANORO ELIPTA INH SCH (08:59)
[2019-01-07] MEDS: sulfaSALAzine 500 MG TAB PO SCH (09:00)
[2019-01-07 12:20] VITALS: BP 106/54; TEMP 98.7
--- NOTE | 2019-01-07 14:54 | PDOC.EVN ---
Event Note - Event Note Event Note: DC SUMMARY #[id number]
--- NOTE | 2019-01-07 20:03 | DIS ---
DATE OF ADMISSION: 01/06/2019 DATE OF DISCHARGE: 01/07/2019 ADMITTING DIAGNOSES: Chest pain, chronic kidney disease stage 4, elevated troponins; anemia, iron deficiency. DISCHARGE DIAGNOSES: Chest pain, resolved. [id number] myocardial infarction, stable. Hypertension, hyperlipidemia, metabolic bone disease. Anemia, stable, iron deficiency. Chronic kidney disease stage 4. HOSPITAL COURSE: This is an 83-year-old female who came in presenting with chest pain. The patient stated that she has a history of chronic kidney disease and sees Dr. Rivera as well as Dr. Aranda outpatient. The patient also stated that she did not want any sort of cardiac catheterization or any contrast based studies as she was told that she would suffer significant kidney disease and injury and end up on dialysis. She is not on dialysis at all. The patient states that she is willing to take medical management to the best of capabilities. The patient was evaluated by Cardiology, Internal Medicine throughout her stay here. Hemoglobin was stable. She received 2 doses of IV iron and was advised to follow up with contour path tape mill operator in 1 week for scheduled iron supplementations as needed. At point in time of discharge, conversation was held by phone with her 2 daughters as well as the patient at length. The plan was discussed and they all agreed and understood this plan. DISPOSITION: Home. FOLLOWUP: Follow up with PCP and Nephrology and Cardiology within 1 to 2 weeks. MEDICATIONS: See MAR. ACTIVITY: As tolerated with assistance as needed. DIET: Low-fat, low-calorie, high-fiber diet. CONDITION: Stable. PROGNOSIS: Guarded. Case and plan again discussed with the patient and family at length. They understood and agreed with this plan. Job ID: [id number]
--- NOTE | 2019-01-09 12:36 | DIS ---
DATE OF ADMISSION: 01/06/2019 DATE OF DISCHARGE: 01/07/2019 ADMITTING DIAGNOSES: Chest pain, chronic kidney disease stage 4, hyperlipidemia, and paroxysmal atrial fibrillation. DISCHARGE DIAGNOSES: Chest pain, resolved; chronic kidney disease stage 4, stable; hyperlipidemia, stable; paroxysmal atrial fibrillation. HOSPITAL COURSE: This is an 83-year-old female, who was admitted to Internal Medicine Team, was also evaluated by Cardiology for chest pain. The patient had troponins done and trended. The patient states that regardless of whatever the results was, she did not want to have a cardiac catheterization done. The patient already was on anticoagulation and antiplatelets as well as cholesterol medications. The patient refused cardiac catheterization and had a cardiac evaluation done as well. Lab studies were normal. At the point in time of discharge, the patient was advised to follow up with her marshmallow runner and insert operator as an outpatient within 1 to 2 weeks. The patient's condition at the point in time of discharge was stable. Case and plan were discussed with the patient as well as her daughter via phone. They both understood and agreed with this plan. DISPOSITION: Home. MEDICATIONS: See MAR. ACTIVITY: As tolerated with assistance as needed. DIET: Low-fat, low-calorie, high-fiber diet. CONDITION: Stable. PROGNOSIS: Guarded. Case and plan once again discussed with daughter and patient at length. They understood and agreed to this plan. Job ID: [id number]
[2019-01-10] MEDS ORDERED: Methotrexate Sodium 2.5 MG TAB PO SCH (09:00)
== END 2019-01-07 15:02 | disposition home or self-care (01) | DRG 280 ==
LOC: ERS 14:31 → 2SW 21:51 → OBSVTOIN 01-06 16:11
PROVIDERS: ADMIT Internal Medicine; ATTEND Internal Medicine
DX: I21.4 Non-ST elevation (NSTEMI) myocardial infarction (principal); J96.01 Acute respiratory failure with hypoxia; N18.4 Chronic kidney disease, stage 4 (severe); I48.92 Unspecified atrial flutter; I13.0 Hypertensive heart and chronic kidney disease with heart failure and stage 1 through stage 4 chronic kidney disease, or unspecified chronic kidney disease; E87.1 Hypo-osmolality and hyponatremia; I50.32 Chronic diastolic (congestive) heart failure; D50.9 Iron deficiency anemia, unspecified; D63.1 Anemia in chronic kidney disease; E78.5 Hyperlipidemia, unspecified; E03.9 Hypothyroidism, unspecified; I48.2 Chronic atrial fibrillation; I48.0 Paroxysmal atrial fibrillation; I25.110 Atherosclerotic heart disease of native coronary artery with unstable angina pectoris; E83.52 Hypercalcemia; R73.9 Hyperglycemia, unspecified; J43.9 Emphysema, unspecified; Z87.891 Personal history of nicotine dependence; Z88.8 Allergy status to other drugs, medicaments and biological substances; Z88.0 Allergy status to penicillin; Z79.82 Long term (current) use of aspirin; Z79.52 Long term (current) use of systemic steroids; Z79.899 Other long term (current) drug therapy
CPT/HCPCS: 36415; 71045; 80048; 80053; 82274; 82550; 82553; 83690; 83880; 84443; 84484; 85025; 85610; 85730; 93005; 94760; J1756; J7050; J7512

== ENCOUNTER 2019-01-18 11:11 | Emergency (ER) | payer MEDICARE, OTHER ==
[2019-01-18 11:51] LABS: #Lymphocytes 0.8 thou/uL (1.20-3.40); #Monocytes 0.7 thou/uL (0.11-0.59); #Neutrophils 3.4 thou/uL (1.40-6.50); %Basophils 0.2 % (0.0-1.0); %Eosinophils 0.7 % (0.0-10.0); %Lymphocytes 15.4 % (21.0-51.0); %Monocytes 14.4 % (0.0-10.0); %Neutrophils 69.2 % (42.0-75.0); Hemoglobin 8.7 g/dL (12.0-16.0); Mean Corpuscular HGB CONC 32.2 g/dL (32.0-36.0); Mean Corpuscular Hemoglobin 27.1 pg (27.0-31.0); Mean Platelet Volume 7.7 fL (7.4-10.4); Platelet Count 215 thou/uL (130-400); RBC Distribution Width 20.2 % (11.5-14.5); Red Blood Cell (RBC) Count 3.22 mill/uL (4.20-5.40); White Blood Cell (WBC) Count 4.8 thou/uL (4.8-10.8)
--- NOTE | 2019-01-18 12:04 | RAD ---
EXAM: Single view of the chest HISTORY: Heart palpitations and chest pain COMPARISON: 01/05/2019 FINDINGS: Single view of the chest shows a normal sized cardiomediastinal silhouette. The pacemaker is unchanged in position. There is no evidence of consolidation, mass, or pleural effusion. The bones are unremarkable. IMPRESSION: No evidence of acute cardiopulmonary disease
[2019-01-18 12:16] LABS: ALT (SGPT) 18 U/L (8-55); AST (SGOT) 24 U/L (5-34); Albumin 3.3 g/dL (3.4-4.8); Alkaline Phosphatase 69 U/L (40-150); Anion Gap 11 mmol/L (10-20); BUN (Urea Nitrogen) 29 mg/dL (9.8-20.1); Bilirubin, Total 0.5 mg/dL (0.2-1.2); Calc. Creatinine Clearance 0 mL/min (70-130); Calcium 9.9 mg/dL (7.8-10.44); Carbon Dioxide 25 mmol/L (23-31); Chloride 99 mmol/L (98-107); Estimated GFR-MDRD 42; Globulin 2.6 g/dL (2.4-3.5); Glucose 111 mg/dL (83-110); Potassium 3.7 mmol/L (3.5-5.1); Protein, Total 5.9 g/dL (6.0-8.3); Sodium 131 mmol/L (136-145)
[2019-01-18 13:06] LABS: Bilirubin Negative (Negative); Blood, Urine Negative (Negative); Clarity Clear (Clear); Glucose, Urine (Dipstick) Normal (Negative); Leukocyte Negative Leu/uL (Negative); Nitrite Negative (Negative); Protein, Urine (Dipstick) Negative (Neg-Trace); Urobilinogen Normal mg/dL (Less than 2)
--- NOTE | 2019-01-22 01:03 | EKG ---
Test Reason : TACHYCARDIC Blood Pressure : / mmHG Vent. Rate : 111 BPM Atrial Rate : 129 BPM P-R Int : 000 ms QRS Dur : 084 ms QT Int : 332 ms P-R-T Axes : 000 049 012 degrees QTc Int : 451 ms Atrial fibrillation with rapid ventricular response with premature ventricular or aberrantly conducte d complexes Nonspecific ST abnormality Abnormal ECG Confirmed by KAVYA ESCALANTE ([id number]), manuscript editor EDWIN KING ([id number]) on 01/22/2019 1:02:12 AM Referred By: Confirmed By:KAVYA ESCALANTE
--- NOTE | 2019-01-22 01:03 | EKG ---
Test Reason : ER Blood Pressure : / mmHG Vent. Rate : 064 BPM Atrial Rate : 064 BPM P-R Int : 000 ms QRS Dur : 084 ms QT Int : 402 ms P-R-T Axes : 097 025 028 degrees QTc Int : 414 ms Electronic atrial pacemaker Confirmed by KAVYA ESCALANTE ([id number]), social media editor EDWIN KING ([id number]) on 01/22/2019 1:02:14 AM Referred By: Confirmed By:KAVYA ESCALANTE
== END 2019-01-18 14:25 | disposition home or self-care (01) ==
LOC: ERS 11:11
DX: I48.0 Paroxysmal atrial fibrillation (principal); I25.2 Old myocardial infarction; E03.9 Hypothyroidism, unspecified; Z85.43 Personal history of malignant neoplasm of ovary; J44.9 Chronic obstructive pulmonary disease, unspecified; I11.0 Hypertensive heart disease with heart failure; I50.9 Heart failure, unspecified; M06.9 Rheumatoid arthritis, unspecified; I48.92 Unspecified atrial flutter; Z87.891 Personal history of nicotine dependence; Z79.52 Long term (current) use of systemic steroids; Z79.899 Other long term (current) drug therapy; Z79.01 Long term (current) use of anticoagulants
CPT/HCPCS: 71045; 80053; 81003; 83880; 84484; 85025; 93005

== ENCOUNTER 2019-02-09 10:59 | Emergency (ER) | payer MEDICARE, OTHER ==
[2019-02-09 11:54] LABS: Hemoglobin 8.5 g/dL (12.0-16.0); Mean Corpuscular HGB CONC 32.4 g/dL (32.0-36.0); Mean Corpuscular Hemoglobin 27.1 pg (27.0-31.0); Mean Corpuscular Volume 83.9 fL (78.0-98.0); Mean Platelet Volume 7.6 fL (7.4-10.4); Platelet Count 166 thou/uL (130-400); RBC Distribution Width 18.7 % (11.5-14.5); Red Blood Cell (RBC) Count 3.15 mill/uL (4.20-5.40); White Blood Cell (WBC) Count 4.9 thou/uL (4.8-10.8)
[2019-02-09 12:03] LABS: Bacteria/HPF None Seen HPF (None Seen); Bilirubin Negative (Negative); Blood, Urine Trace (Negative); Clarity Clear (Clear); Glucose, Urine (Dipstick) Normal (Negative); Leukocyte Negative Leu/uL (Negative); Nitrite Negative (Negative); Protein, Urine (Dipstick) 10 mg/dL (Neg-Trace); Squamous Epithelial 0-3 HPF (0-3); Urobilinogen Normal mg/dL (Less than 2); WBC/HPF 0-3 HPF (0-3)
[2019-02-09 12:08] LABS: Band 12 % (5-11); Hypochromia SLIGHT = 6-15 cells (100X) (0-5/hpf); Lymphocytes 21 % (21-51); MDiff Complete? YES; Monocytes 9 % (0-10); Neutrophil 57 % (42-75); Platelet Morphology Comment Appears Adequate; Polychromasia SLIGHT = 2-3 cells (100X) (0-2/hpf); Reactive Lymphocytes 1 % (0-10)
[2019-02-09 12:17] LABS: ALT (SGPT) 18 U/L (8-55); AST (SGOT) 34 U/L (5-34); Alkaline Phosphatase 69 U/L (40-110); Anion Gap 10 mmol/L (10-20); BUN (Urea Nitrogen) 31 mg/dL (9.8-20.1); Bilirubin, Total 0.3 mg/dL (0.2-1.2); Calc. Creatinine Clearance 0 mL/min (70-130); Calcium 11.9 mg/dL (7.8-10.44); Carbon Dioxide 29 mmol/L (23-31); Chloride 92 mmol/L (98-107); Estimated GFR-MDRD 30; Globulin 2.5 g/dL (2.4-3.5); Glucose 126 mg/dL (83-110); Potassium 3.6 mmol/L (3.5-5.1); Protein, Total 5.5 g/dL (6.0-8.3); Sodium 127 mmol/L (136-145)
--- NOTE | 2019-02-09 13:43 | RAD ---
XR Chest 1 View Portable HISTORY: Cough COMPARISON: 01/18/2019 study FINDINGS: Heart size is enlarged. A pacemaker is present. There are atherosclerotic changes of the ao rta. The lungs show mild chronic change. Mitral annulus calcifications are noted. Scoliotic change to the spine is seen. IMPRESSION: Cardiomegaly with mild chronic lung change.
== END 2019-02-09 15:26 | disposition home or self-care (01) ==
LOC: ERS 10:59
DX: E86.0 Dehydration (principal); R53.1 Weakness; I10 Essential (primary) hypertension; Z87.891 Personal history of nicotine dependence; Z79.899 Other long term (current) drug therapy; Z79.82 Long term (current) use of aspirin; Z79.01 Long term (current) use of anticoagulants
CPT/HCPCS: 36415; 71045; 80053; 81003; 81015; 85025; 93005; 96360

== ENCOUNTER 2019-02-11 20:34 | Inpatient (IN) | payer MEDICARE, OTHER ==
[2019-02-11 21:10] LABS: Hemoglobin 9.8 g/dL (12.0-16.0); Mean Corpuscular HGB CONC 31.1 g/dL (32.0-36.0); Mean Corpuscular Hemoglobin 26.7 pg (27.0-31.0); Mean Corpuscular Volume 85.9 fL (78.0-98.0); Mean Platelet Volume 7.6 fL (7.4-10.4); Platelet Count 183 thou/uL (130-400); RBC Distribution Width 18.7 % (11.5-14.5); Red Blood Cell (RBC) Count 3.69 mill/uL (4.20-5.40); White Blood Cell (WBC) Count 4.7 thou/uL (4.8-10.8)
[2019-02-11 21:24] LABS: ALT (SGPT) 26 U/L (8-55); AST (SGOT) 45 U/L (5-34); Albumin 3.4 g/dL (3.4-4.8); Alkaline Phosphatase 101 U/L (40-110); Anion Gap 13 mmol/L (10-20); BUN (Urea Nitrogen) 23 mg/dL (9.8-20.1); Bilirubin, Total 0.3 mg/dL (0.2-1.2); Calc. Creatinine Clearance 0 mL/min (70-130); Carbon Dioxide 30 mmol/L (23-31); Chloride 91 mmol/L (98-107); Estimated GFR-MDRD 37; Globulin 3.1 g/dL (2.4-3.5); Glucose 111 mg/dL (83-110); Potassium 3.9 mmol/L (3.5-5.1); Protein, Total 6.5 g/dL (6.0-8.3); Sodium 130 mmol/L (136-145)
[2019-02-11 21:28] LABS: Band 22 % (5-11); Lymphocytes 16 % (21-51); MDiff Complete? YES; Monocytes 11 % (0-10); Neutrophil 51 % (42-75)
[2019-02-11 21:29] LABS: Calcium 12.3 mg/dL (7.8-10.44)
--- NOTE | 2019-02-11 21:32 | CT ---
CT Brain WO Con HISTORY: Altered mental status. COMPARISON: None. FINDINGS: There is generalized ventricular and sulcal prominence. Changes are consistent with mild at rophy. There are no signs of intracerebral hemorrhage or extra-axial fluid collections. The mastoid air cells and visualized sinuses are clear. IMPRESSION: No acute intracranial abnormalities.
[2019-02-11 21:46] LABS: CKMB 0.6 ng/mL (0-6.6)
[2019-02-11 22:18] LABS: Bacteria/HPF None Seen HPF (None Seen); Bilirubin Negative (Negative); Blood, Urine Trace (Negative); Clarity Clear (Clear); Glucose, Urine (Dipstick) Normal (Negative); Leukocyte Negative Leu/uL (Negative); Nitrite Negative (Negative); Protein, Urine (Dipstick) Negative (Neg-Trace); RBC/HPF 0-3 HPF (0-3); Squamous Epithelial None Seen HPF (0-3); Urobilinogen Normal mg/dL (Less than 2); WBC/HPF 0-3 HPF (0-3)
--- NOTE | 2019-02-11 23:53 | PDOC.HHP ---
Hospitalist HPI - History of Present Illness Weakness, hypotension History of Present Illness: 83 year old female with PMH atrial fibrillation/flutter, rheumatoid arthritis, permanent pacemaker, recent cardic ablation who presents to the ED for weakness and hypotension. Patient had cardiac ablation on 01/30/2019, ever since she has become progressively weaker, not eating much anymore, complains of diffuse pain but cannot localize further. Since arriving at hospital, patient has had fever to 101, Bp was initially low but is now high in 190s systolic. Family reports falling sleeping frequently and less alert, poor appetite, poor PO intake. Family reports less urination and incontinence, patient denies dysuria. In ED, given 1L IVF, UA did not indicate infection, troponin elevated to 0.095, WBC 4.7 , hgb 9.8, Na 130, Cr 1.37, Ca elevated 12.3. Patient takes methotrexate and several other rheumatology medications for PMR/rheumatoid arthritis. There have been no issues with the pacemaker site. Patient had a recent UTI as an outpatient, but was treated with cephalosporin. Hospitalist ROS - Review of Systems Constitutional: reports: chills. denies: fever Eyes: denies: vision change, conjunctivae inflammation ENT: denies: mouth swelling, throat swelling Respiratory: denies: cough, dry, shortness of breath Cardiovascular: denies: chest pain, palpitations Gastrointestinal: denies: nausea, vomiting Genitourinary: denies: dysuria, frequency Musculoskeletal: denies: neck pain, shoulder pain Skin: denies: rash, lesions Neurological: denies: weakness, numbness Other: positive for agitation and diffuse body pain - Medication Medications: NexIUM Sat Feb 11, 2019 21:23 SIMON Mckeon Jennifer CAPSULE,DELAYED RELEASE ( ENTERIC COATED) : Strength - 20 mg : ORAL Patient Dose: UNK. predniSONE WedFeb 11, 2019 21:23 SIMON Mckeon Jennifer TABLET : Strength - 5 mg : ORAL Patient Dose: 10 mg Oral once a day. meTOPROLOL succinate WedFeb 11, 2019 21:23 SIMON Mckeon Jennifer TABLET, EXTENDED RELEASE 24 HR : Strength - 50 mg : ORAL Patient Dose: 50 mg Oral once a day. Eliquis WedFeb 11, 2019 21:23 SIMON Mckeon Jennifer TABLET : Strength - 2.5 mg : ORAL Patient Dose: 2.5 mg Oral 2 times a day. atorvastatin Sat Feb 11, 2019 21:23 SIMON Mckeon Jennifer TABLET : Strength - 40 mg : ORAL Patient Dose: 40 mg Oral once a day. aspirin WedFeb 11, 2019 21:23 SIMON Mckeon Jennifer TABLET : Strength - 81 mg : ORAL Patient Dose: 81 mg Oral once a day. Multaq WedFeb 11, 2019 21:23 SIMON Mckeon Jennifer TABLET : Strength - 400 mg : ORAL Patient Dose: 1 tab(s) Oral 2 times a day. sulfaSALAzine WedFeb 11, 2019 21:23 SIMON Mckeon Jennifer TABLET : Strength - 500 mg : ORAL Patient Dose: 1500 mg Oral 2 times a day. Synthroid WedFeb 11, 2019 21:23 SIMON Mckeon Jennifer TABLET : Strength - 50 mcg : ORAL Patient Dose: 50 mcg Oral once a day. amitriptyline WedFeb 11, 2019 21:23 SIMON Mckeon Jennifer TABLET : Strength - 10 mg : ORAL Patient Dose: 10 mg Oral once a day. torsemide WedFeb 11, 2019 21:23 SIMON Mckeon Jennifer TABLET : Strength - 20 mg : ORAL Patient Dose: 30 mg Oral once a day. Ventolin WedFeb 11, 2019 21:23 SIMON Mckeon Jennifer AEROSOL (GRAM) : Strength - 90 mcg : INHALATION Patient Dose: Unknown.as needed. Methotrexate (Anti-Rheumatic) [facility] Feb 11, 2019 21:23 SIMON Mckeon Jennifer TABLET : Strength - 2.5 mg : ORAL Patient Dose: 6 tab(s) Oral. traMADol WedFeb 11, 2019 21:24 SIMON Mckeon Jennifer TABLET : Strength - 50 mg : ORAL Patient Dose: 100 mg once a day (at bedtime). Zetia WedFeb 11, 2019 21:26 SIMON Mckeon Jennifer TABLET : Strength - 10 mg : ORAL Patient Dose: once a day. Hospitalist History - Past Medical History Other Medical History: myocardial infarction, hypothyroidism, diverticulitis, hypertension, malignancy , primary site ovarian, treated with chemotherapy, treated with surgery, Date of last treatment: 2011, , chronic obstructive pulmonary disease. POLYMYALGIA.CHF, AFIB/AFLUTTER,. RA. CARDIAC ABLATION Jan. - Past Surgical History Other Surgical History: Colon resection, Surgical history of hysterectomy, pacemaker, ovarian cancer sx. CARDIAC ABLATION IN 03/2018. - Family History Family History: reports: no pertinent history - Social History Other Social History: Lives at home, Patient is a former tobacco user, smoked cigarettes, Patient quit smoking more than 10 years ago, Patient denies alcohol use, Patient denies drug use,. - Exam General Appearance: NAD, awake alert, ill appearing Eye: PERRL, anicteric sclera ENT: dry oral mucosa Neck: supple, symmetric, no JVD, no thyromegaly, no lymphadenopathy, no carotid bruit Heart: RRR, no murmur, no gallops, no rubs, normal peripheral pulses Respiratory: CTAB, no wheezes, no rales, no ronchi, normal chest expansion Gastrointestinal: soft, non-tender, non-distended, normal bowel sounds Extremities: no cyanosis, no clubbing, no edema Skin: normal turgor, no lesions, no rashes Neurological: cranial nerve grossly intact, normal sensation to touch, no weakness Musculoskeletal: normal tone, generalized weakness Psychiatric - other findings: altered mental status, agitation Hospitalist Results - Labs Result Diagrams: 02/11/19 20:50 02/11/19 20:50 Lab results: WBC 4.7 thou/uL (4.8-10.8) L 02/11/19 20:50 Hgb 9.8 g/dL (12.0-16.0) L 02/11/19 20:50 Hct 31.7 % (36.0-47.0) L 02/11/19 20:50 MCV 85.9 fL (78.0-98.0) 02/11/19 20:50 Plt Count 183 thou/uL (130-400) 02/11/19 20:50 Band Neuts % (Manual) 22 % (5-11) H 02/11/19 20:50 Sodium 130 mmol/L (136-145) L 02/11/19 20:50 Potassium 3.9 mmol/L (3.5-5.1) 02/11/19 20:50 Chloride 91 mmol/L (98-107) L 02/11/19 20:50 Carbon Dioxide 30 mmol/L (23-31) 02/11/19 20:50 BUN 23 mg/dL (9.8-20.1) H 02/11/19 20:50 Creatinine 1.37 mg/dL (0.6-1.1) H 02/11/19 20:50 Glucose 111 mg/dL (83-110) H 02/11/19 20:50 Calcium 12.3 mg/dL (7.8-10.44) H* 02/11/19 20:50 Total Bilirubin 0.3 mg/dL (0.2-1.2) 02/11/19 20:50 AST 45 U/L (5-34) H 02/11/19 20:50 ALT 26 U/L (8-55) 02/11/19 20:50 Alkaline Phosphatase 101 U/L (40-110) 02/11/19 20:50 Ammonia 12 umol/L (18-72) L 02/11/19 21:13 CK-MB (CK-2) 0.6 ng/mL (0-6.6) 02/11/19 20:50 Troponin I 0.095 ng/mL (< 0.028) H 02/11/19 20:50 Serum Total Protein 6.5 g/dL (6.0-8.3) 02/11/19 20:50 Albumin 3.4 g/dL (3.4-4.8) 02/11/19 20:50 Urine Ketones Negative mg/dL (Negative) 02/11/19 21:58 Urine Blood Trace (Negative) A 02/11/19 21:58 Urine Nitrite Negative (Negative) 02/11/19 21:58 Ur Leukocyte Esterase Negative Radu/uL (Negative) 02/11/19 21:58 Urine RBC 0-3 HPF (0-3) 02/11/19 21:58 Urine WBC 0-3 HPF (0-3) 02/11/19 21:58 Ur Squamous Epith Cells None Seen HPF (0-3) 02/11/19 21:58 Urine Bacteria None Seen HPF (None Seen) 02/11/19 21:58 Additional comment: VITAL SIGNS Sat Feb 11, 2019 20:42 SIMON Mckeon, Chrystal BP: 175/79, Pulse: 82, Resp: 22, Temp: 100.0 (Oral), O2 sat: 96 on Room Air, Time: 02/11/2019 20:42. - EKG Interpretation EK lead EKG interpreted by Emergency Department Physician at time of study, 12 lead EKG shows, paced rhythm, Rate (beats per minute): 82, Conduction normal, ST segments normal, T waves normal, Crocker normal, Other findings include:, AV sequential or dual chamber electronic pacemaker. Artifact present. Hospitalist H&P A/P - Problem (1) Altered mental status Code(s): R41.82 - ALTERED MENTAL STATUS, UNSPECIFIED Status: Acute Assessment and Plan: suspect delirium from subacute infection vs toxic/metabolic perhaps from high calcium or low sodium. will give IVf and complete infection workup, see other sections of A&P for details (2) Fever Code(s): R50.9 - FEVER, UNSPECIFIED Status: Acute Assessment and Plan: given altered mental status, generalized pain, and fever, will start empiric antibiotics and send blood cultures, will consult cardiology and EP to help rule out endocarditis and pacemaker infection given recent cardiac procedure (3) Atrial fibrillation and flutter Code(s): I48.91 - UNSPECIFIED ATRIAL FIBRILLATION; I48.92 - UNSPECIFIED ATRIAL FLUTTER Status: Chronic Assessment and Plan: continue home meds once med rec complete, consult cardiology in AM (4) Hx of diastolic dysfunction Code(s): Z86.79 - PERSONAL HISTORY OF OTHER DISEASES OF THE CIRCULATORY SYSTEM Status: Acute Assessment and Plan: continue home meds once med rec complete, consult cardiology in AM (5) Hypothyroidism Code(s): E03.9 - HYPOTHYROIDISM, UNSPECIFIED Status: Chronic Qualifiers: Assessment and Plan: continue home medications (6) COPD (chronic obstructive pulmonary disease) Status: Acute Qualifiers: Assessment and Plan: continue home meds once med rec complete (7) CKD (chronic kidney disease), stage III Code(s): N18.3 - CHRONIC KIDNEY DISEASE, STAGE 3 (MODERATE) Status: Chronic Assessment and Plan: trend BMP., hydration (8) Polymyalgia rheumatica Code(s): M35.3 - POLYMYALGIA RHEUMATICA Status: Chronic Assessment and Plan: continue home meds, some immunosuppressants in med list but med rec not yet complete so may not be up to date (9) Atrial fib/flutter, transient Code(s): [id number] - Status: Resolved (10) Hyponatremia Code(s): E87.1 - HYPO-OSMOLALITY AND HYPONATREMIA Status: Acute Assessment and Plan: will give IV fluids and trend, patient with poor PO intake and dry, may recover mental status with improvement in sodium (11) Hypercalcemia Code(s): E83.52 - HYPERCALCEMIA Status: Acute Assessment and Plan: will follow on IV fluids
[2019-02-12] MEDS ORDERED: Acetaminophen 325 MG TAB PO PRN (00:11)
[2019-02-12] MEDS ORDERED: Ondansetron PF 4 MG/2 ML Vial IVP PRN (00:11)
[2019-02-12] MEDS ORDERED: Ondansetron ODT 4 MG TAB SL PRN (00:11)
[2019-02-12] MEDS ORDERED: Sodium Chloride 0.9% 1,000 ML IV SCH (00:15)
[2019-02-12] MEDS ORDERED: Bisacodyl 5 MG TAB PO PRN (00:21)
[2019-02-12] MEDS ORDERED: Senokot S 8.6-50 MG TAB PO PRN (00:21)
[2019-02-12] MEDS ORDERED: Bisacodyl 10 MG SUPP PR PRN (00:21)
[2019-02-12] MEDS ORDERED: hydrALAZINE 20 MG/ML VIAL SLOW IVP PRN (00:30)
[2019-02-12] MEDS ORDERED: cefTRIAXone\\ROCEPHIN 1 GM in Sodium Chloride 0.9% 100 ML IVPB SCH (01:00)
[2019-02-12] MEDS: Sodium Chloride 0.9% 1,000 ML IV SCH ×2 (01:04→16:51)
[2019-02-12] MEDS: Morphine 2 MG/ML SYRINGE SLOW IVP PRN (01:05)
[2019-02-12 01:22] LABS: Troponin I 0.092 ng/mL (< 0.028)
[2019-02-12] MEDS: Vancomycin HCl 500 MG in Sodium Chloride 0.9% 100 ML IVPB SCH (03:34)
[2019-02-12] MEDS: HYDROcodone/Acetaminophen 5/325 mg Tablet PO PRN ×2 (04:12→21:19)
[2019-02-12 05:23] VITALS: BMI 20.9
[2019-02-12 05:53] LABS: Anion Gap 6 mmol/L (10-20); BUN (Urea Nitrogen) 21 mg/dL (9.8-20.1); Calc. Creatinine Clearance 29 mL/min (70-130); Calcium 10.6 mg/dL (7.8-10.44); Carbon Dioxide 28 mmol/L (23-31); Chloride 96 mmol/L (98-107); Estimated GFR-MDRD 41; Glucose 99 mg/dL (83-110); Potassium 3.4 mmol/L (3.5-5.1); Sodium 127 mmol/L (136-145)
[2019-02-12 06:53] LABS: Band 23 % (5-11); Eosinophils 1 % (0-10); Hemoglobin 7.7 g/dL (12.0-16.0); Lymphocytes 18 % (21-51); MDiff Complete? YES; Mean Corpuscular HGB CONC 31.8 g/dL (32.0-36.0); Mean Corpuscular Hemoglobin 27.3 pg (27.0-31.0); Mean Corpuscular Volume 85.8 fL (78.0-98.0); Mean Platelet Volume 8.3 fL (7.4-10.4); Monocytes 14 % (0-10); Myelocyte 1 % (0-0); Neutrophil 43 % (42-75); Platelet Count 143 thou/uL (130-400); RBC Distribution Width 18.6 % (11.5-14.5); Red Blood Cell (RBC) Count 2.82 mill/uL (4.20-5.40); White Blood Cell (WBC) Count 3.5 thou/uL (4.8-10.8)
[2019-02-12 08:20] LABS: Troponin I 0.109 ng/mL (< 0.028)
[2019-02-12] MEDS ORDERED: PROVENTIL INHALER 6.7 G (200 INHALATIONS) INH PRN (08:58)
[2019-02-12] MEDS ORDERED: Enoxaparin Sodium 30 MG/0.3 ML SYRINGE SC SCH (09:00)
[2019-02-12] MEDS ORDERED: methylPREDNISolone Sod Succ/PF 125 MG/2 ML VIAL IVP SCH (09:00)
[2019-02-12] MEDS ORDERED: Vancomycin HCl 1 GM in Premix Bag 1 BAG IVPB SCH (09:00)
[2019-02-12] MEDS ORDERED: predniSONE 20 MG TAB PO SCH (09:15)
--- NOTE | 2019-02-12 09:55 | PDOC.HOSPP ---
- Subjective Subjective: Feeling some better. Her mental status has significantly improved per the patient's daughters. Patient has not specific complaints at the moment. - Objective Vital Signs & Weight: Vital Signs (12 hours) Temp Pulse Resp BP Pulse Ox 02/12/19 08:00 97.9 F 80 18 112/53 L 100 02/12/19 05:33 98.6 F 80 12 93/53 L 96 02/12/19 01:58 81 16 94 L 02/12/19 01:50 100.2 F H 82 16 163/78 H 88 L 02/11/19 23:57 101.6 F H 82 19 194/86 H 93 L Weight Weight 121 lb 12.8 oz I&O: 02/11/19 02/12/19 02/13/19 06:59 06:59 06:59 Intake Total 890 Output Total 800 Balance 90 Result Diagrams: 02/12/19 05:09 02/12/19 05:09 Hospitalist ROS - Medication Medications: Active Medications Generic Name Dose Route Start Last Admin Trade Name Freq PRN Reason Stop Dose Admin Hydrocodone Bitart/Acetaminophen 1 tab 02/12/19 00:21 02/12/19 04:12 [place] 5/325 PO 1 tab Q4H PRN Administration Moderate Pain (4-6) Sodium Chloride 1,000 mls @ 75 mls/hr 02/12/19 00:30 02/12/19 01:04 Normal Saline 0.9% IV 1,000 mls .[id number] JOLENE Administration Vancomycin HCl 500 mg/ Sodium 100 mls @ 100 mls/hr 02/12/19 02:00 02/12/19 03 :34 Chloride IVPB 100 mls 0200 JOLENE Administration Morphine Sulfate 2 mg 02/12/19 00:21 02/12/19 01:05 Morphine SLOW IVP 2 mg Q4H PRN Administration Breakthrough Pain - Exam General Appearance: NAD, awake alert Eye: PERRL ENT: normocephalic atraumatic, no oropharyngeal lesions, moist mucosa Neck: supple Heart: RRR, no gallops, no rubs, murmur present, II/IV Heart - other findings: PPM site looks healthy. Respiratory: CTAB, no wheezes, no rales, no ronchi, normal chest expansion, no tachypnea, normal percussion Gastrointestinal: soft, non-tender Gastrointestinal - other findings: Hyperactive BS (reports nml), slight distention. Skin: normal turgor Neurological: cranial nerve grossly intact, no focal deficits Musculoskeletal: generalized weakness Musculoskeletal - other findings: Osteoarthropathy. Psychiatric: normal affect, normal behavior, A&O x 3 Hosp A/P (1) Acute metabolic encephalopathy Code(s): G93.41 - METABOLIC ENCEPHALOPATHY Status: Acute (2) Elevated troponin Code(s): R74.8 - ABNORMAL LEVELS OF OTHER SERUM ENZYMES Status: Acute (3) History of cardiac radiofrequency ablation Code(s): Z98.890 - OTHER SPECIFIED POSTPROCEDURAL STATES Status: Acute (4) Fever Code(s): R50.9 - FEVER, UNSPECIFIED Status: Acute (5) Hypercalcemia Code(s): E83.52 - HYPERCALCEMIA Status: Acute (6) Hyponatremia Code(s): E87.1 - HYPO-OSMOLALITY AND HYPONATREMIA Status: Acute (7) COPD (chronic obstructive pulmonary disease) Status: Acute Qualifiers: (8) Hx of diastolic dysfunction Code(s): Z86.79 - PERSONAL HISTORY OF OTHER DISEASES OF THE CIRCULATORY SYSTEM Status: Acute (9) Atrial fibrillation and flutter Code(s): I48.91 - UNSPECIFIED ATRIAL FIBRILLATION; I48.92 - UNSPECIFIED ATRIAL FLUTTER Status: Chronic (10) CKD (chronic kidney disease), stage III Code(s): N18.3 - CHRONIC KIDNEY DISEASE, STAGE 3 (MODERATE) Status: Chronic (11) Coronary arteriosclerosis Status: Chronic (12) Hypertension Code(s): I10 - ESSENTIAL (PRIMARY) HYPERTENSION Status: Chronic Qualifiers: (13) Hypothyroidism Code(s): E03.9 - HYPOTHYROIDISM, UNSPECIFIED Status: Chronic Qualifiers: (14) Polymyalgia rheumatica Code(s): M35.3 - POLYMYALGIA RHEUMATICA Status: Chronic (15) Anemia in chronic kidney disease (CKD) Code(s): N18.9 - CHRONIC KIDNEY DISEASE, UNSPECIFIED; D63.1 - ANEMIA IN CHRONIC KIDNEY DISEASE Status: Acute - Plan Somewhat improved. Hemoglobin dropped with hydration. Continue to monitor. Suspect acute on chronic with dilution. Concerned that she has some adrenal insufficiency following the ablation. Checking cortisol level and giving stress dose steroids. Hyper calcemia is better with IVF. Continue IVF, but carefully in light of the cardiac hx. Hyponatremia is worse. Consult her protective signal installer. Consult ID given the fever and hypotension following the ablation and given the PPM. Follow cultures and continue empiric abx. DC levaquin out concern for arrhythmia risks. No specific source of infection identified. Had CXR on 02/09 which was normal. Resume Eliquis, and DC the enoxaparin.
[2019-02-12] MEDS: Aspirin 81 mg Enteric Coated Tablet PO SCH (09:58)
[2019-02-12] MEDS: Apixaban 2.5 MG TAB PO SCH ×2 (09:58→21:18)
[2019-02-12] MEDS: Acetaminophen/Codeine 30-300mg Tablet PO SCH (09:59)
[2019-02-12] MEDS: sulfaSALAzine 500 MG TAB PO SCH ×2 (10:33→21:18)
[2019-02-12] MEDS: Acetaminophen 325 MG TAB PO PRN (12:13)
[2019-02-12] MEDS: Dronedarone HCl 400 MG TAB PO SCH (16:51)
[2019-02-12 17:27] LABS: Troponin I 0.076 ng/mL (< 0.028)
[2019-02-12 17:55] LABS: Folate (Folic Acid) 11.3 ng/mL (7.0-31.4)
[2019-02-12] MEDS: Amitriptyline HCl 10 MG TAB PO SCH (21:18)
[2019-02-13] MEDS ORDERED: cefTRIAXone\\ROCEPHIN 1 GM in Sodium Chloride 0.9% 100 ML IVPB SCH (01:00)
[2019-02-13 01:39] LABS: Troponin I 0.059 ng/mL (< 0.028)
[2019-02-13 01:41] LABS: Vancomycin, Trough 3.5 ug/mL
[2019-02-13] MEDS: Vancomycin HCl 500 MG in Sodium Chloride 0.9% 100 ML IVPB SCH ×2 (02:05→17:10)
[2019-02-13 05:58] LABS: Band 8 % (5-11); Hemoglobin 8.2 g/dL (12.0-16.0); Lymphocytes 18 % (21-51); MDiff Complete? YES; Mean Corpuscular HGB CONC 30.2 g/dL (32.0-36.0); Mean Corpuscular Hemoglobin 27.2 pg (27.0-31.0); Mean Platelet Volume 7.6 fL (7.4-10.4); Monocytes 5 % (0-10); Neutrophil 69 % (42-75); Platelet Count 174 thou/uL (130-400); RBC Distribution Width 18.7 % (11.5-14.5); White Blood Cell (WBC) Count 3.8 thou/uL (4.8-10.8)
[2019-02-13 06:05] LABS: Albumin 2.6 g/dL (3.4-4.8); Anion Gap 10 mmol/L (10-20); BUN (Urea Nitrogen) 19 mg/dL (9.8-20.1); BUN/Creatinine Ratio 18.81; Calc. Creatinine Clearance 36 mL/min (70-130); Calcium 11.1 mg/dL (7.8-10.44); Carbon Dioxide 23 mmol/L (23-31); Chloride 102 mmol/L (98-107); Estimated GFR-MDRD 52; Glucose 104 mg/dL (83-110); Phosphorus 2.1 mg/dL (2.3-4.7); Potassium 3.7 mmol/L (3.5-5.1); Sodium 131 mmol/L (136-145)
[2019-02-13] MEDS: Levothyroxine Sodium 50 MCG TAB PO SCH (06:07)
[2019-02-13] MEDS: Sodium Chloride 0.9% 1,000 ML IV SCH ×3 (06:07→18:10)
[2019-02-13 06:25] LABS: Thyroid Stimulating Hormone 3.2139 uIU/mL (0.35-4.94); Vitamin D, 25 Hydroxy 26.8 ng/ml (> 30.0)
[2019-02-13] MEDS ORDERED: predniSONE 20 MG TAB PO SCH (08:00)
--- NOTE | 2019-02-13 09:08 | RAD ---
EXAM: CHEST ONE VIEW HISTORY: Fever. COMPARISON: 02/09/2019 FINDINGS: Dual lead left subclavian cardiac pacemaking device is noted in place. Cardiac silhouette is magnifie d by projection. Pulmonary vasculature is within normal limits. Calcifications of the mitral valve annulus is again noted. Vascular calcifications are seen in the thoracic aorta. There is increased de nsity overlying the lateral costophrenic angles bilaterally, but this is probably related to overlying soft tissue density as opposed to pleural effusions. Lungs otherwise appear clear without c onsolidation. Osteopenia is present. IMPRESSION: No acute cardiopulmonary process.
[2019-02-13] MEDS: Acetaminophen/Codeine 30-300mg Tablet PO SCH (09:33)
[2019-02-13] MEDS: Aspirin 81 mg Enteric Coated Tablet PO SCH (09:33)
[2019-02-13] MEDS: Dronedarone HCl 400 MG TAB PO SCH ×2 (09:33→17:09)
[2019-02-13] MEDS: sulfaSALAzine 500 MG TAB PO SCH ×2 (09:34→21:29)
[2019-02-13] MEDS: Potassium Chloride 10 MEQ TAB PO SCH (09:34)
[2019-02-13] MEDS: Apixaban 2.5 MG TAB PO SCH (09:39)
--- NOTE | 2019-02-13 10:44 | ULT ---
US Venous Doppler Bilat HISTORY: Patient diagnosed with renal cell carcinoma 2017 with right nephrectomy. This is a follow-up . COMPARISON: None. FINDINGS: The lung bases are The liver and spleen are normal in size. No mass is identified. The pancreas and gallbladder regions are unremarkable. Right and left adrenal glands are normal. The right kidney is been removed. No evidence of any soft t issue mass in the renal bed. The left kidney is normal in appearance. There is no significant periaortic or mesenteric adenopathy. CT of pelvis performed with and without contrast enhancement: No evidence of any pelvic lymphadenopat hy or mass. Prostate is mildly prominent for age. Review of osseous structures show no lytic or blastic bony changes. IMPRESSION: Postop right nephrectomy change. No evidence for metastatic disease. No evidence of recur rent disease in the right renal bed.
[2019-02-13 11:26] LABS: EliA RAS New Method **** NEW METHOD ****; Rheumatoid Factor IgA Antibody 6.4 IU/mL (<14 Negative)
[2019-02-13] MEDS ORDERED: Ibuprofen 100 MG/5 ML UDCUP PO SCH (11:30)
[2019-02-13] MEDS ORDERED: ISOVUE-370 76%-LOCM 1 ML ONE (12:34)
[2019-02-13] MEDS ORDERED: Iopamidol 370 76% 50 ML VIAL FS ONE (12:34)
--- NOTE | 2019-02-13 13:37 | CON ---
DATE OF CONSULTATION: 02/13/2019 REFERRING SECURITY DIRECTOR: Adrien Aranda MD CHIEF COMPLAINT: Fever, weakness. HISTORY OF PRESENT ILLNESS: Ms. Myers is a pleasant 83-year-old white female with history of paroxysmal atrial fibrillation with prior ablation for atrial fibrillation. She had tachycardia-bradycardia syndrome and has a dual-chamber pacemaker. I performed AV node ablation at the [facility] on January 30, 2019. Prior to the ablation, she had urinary tract infection, it was treated with cephalosporin. At the time of the ablation, she was afebrile with a normal white blood cell count and no complaints. During the ablation, I accessed the right femoral vein and right femoral artery approach for ablation from the right ventricle and left ventricle with retrograde aortic approach. There were no complications. She stayed overnight and went home without complications. She has developed delirium and fever and generalized weakness. She was admitted on February 11. Head CT was unremarkable. She is currently treated with intravenous antibiotics. Blood cultures are negative. White blood cell count is likely low. Her initial hemoglobin was 9, it decreased to 7 with hydration, it is now 8.2. Ultrasound shows no evidence of venous complication. On telemetry, she is in sinus rhythm with occasional atrial pacing and ventricular pacing. She has no rapid ventricular rates. She has had recurrent fevers during the admission. Her mental status is clear. She has persistent weakness. She has no chest discomfort or abdominal discomfort. Echocardiogram yesterday was unremarkable with normal ejection fraction. No pericardial effusion. No evidence of agitations. PAST MEDICAL HISTORY: 1. Coronary artery disease. 2. Hypothyroidism. 3. Atrial fibrillation. 4. Tachycardia bradycardia syndrome. 5. Medtronic dual-chamber pacemaker. 6. Polymyalgia. 7. COPD. 8. Hypertension. 9. Malignancy with ovarian cancer treated with chemotherapy. PAST SURGICAL HISTORY: Hysterectomy and Medtronic dual-chamber pacemaker. FAMILY HISTORY: Unremarkable. SOCIAL HISTORY: She lives at home. Former smoker. No alcohol. Her daughter, who is a missioner in [facility], is here in the [facility] for a period of time. She is with her today. REVIEW OF SYSTEMS: No orthopnea or edema. No chest discomfort, dyspnea. No melena, bright red blood per rectum, or hematemesis. No signs of stroke. PHYSICAL EXAMINATION: GENERAL: Alert and oriented x4, in no apparent distress. VITAL SIGNS: Temperature 100.2, pulse 78, blood pressure 183/83, oxygen saturation 98% on 2L nasal cannula, and respiratory rate 12. HEENT: No lesions. Sclerae are clear. SKIN: No lesions. NECK: No jugular venous distention. CARDIOVASCULAR: Regular rate and rhythm. A 2/6 systolic ejection murmur at the base. LUNGS: Clear to auscultation bilaterally. ABDOMEN: Soft, nontender, no masses. Groin, cath site shows no evidence of complications. Soft, nontender. No masses. EXTREMITIES: No cyanosis, clubbing, or edema. Telemetry, sinus rhythm alternating with AV paced. LABORATORY DATA: White blood cell count 3.8, hemoglobin 8.2, platelets 174. Sodium 131, potassium 3.7, and creatinine 1.0. Blood cultures negative today. IMPRESSION: 1. Tachycardia-bradycardia syndrome, status post atrioventricular node ablation on January 30 without apparent complication. Atrioventricular node remains blocked and she is pacemaker dependent. 2. Pacemaker. Normal function. 3. Persistent fever, unclear etiology. Hospital medicine and Infectious Disease evaluating. 4. Paroxysmal atrial fibrillation, on Eliquis. PLAN: Continue observation from an electrophysiology standpoint. Continue Eliquis. Await further workup. Job ID: [id number]
--- NOTE | 2019-02-13 13:58 | PDOC.HOSPP ---
- Subjective Encounter Date: 02/13/19 Encounter Time: 10:40 Subjective: awake, oriented well, no sob a bit lethargic due to fever of 102 this am no chest pain or palp daughter at bedside - Objective Vital Signs & Weight: Vital Signs (12 hours) Temp Pulse Resp BP BP Pulse Ox 02/13/19 12:19 100.1 F H 97 18 138/63 94 L 02/13/19 10:55 102 F H 89 174/76 H 02/13/19 07:49 100.2 F H 78 18 183/83 H 98 02/13/19 03:47 98 F 79 17 133/63 98 Weight Weight 115 lb 3.2 oz I&O: 02/12/19 02/13/19 02/14/19 06:59 06:59 06:59 Intake Total 890 1620 Output Total 800 200 Balance 90 1420 Result Diagrams: 02/13/19 05:02 02/13/19 05:00 Hospitalist ROS - Medication Medications: Active Medications Generic Name Dose Route Start Last Admin Trade Name Freq PRN Reason Stop Dose Admin Acetaminophen 650 mg 02/12/19 11:42 02/12/19 12:13 Tylenol PO 650 mg Q6H PRN Administration Headache/Fever or Pain Acetaminophen/Codeine Phosphate 2 tab 02/12/19 09:00 02/13/19 09:33 Tylenol #3 PO 2 tab DAILY JOLENE Administration Hydrocodone Bitart/Acetaminophen 1 tab 02/12/19 00:21 02/12/19 21:19 [place] 5/325 PO 1 tab Q4H PRN Administration Moderate Pain (4-6) Albuterol/Ipratropium 3 ml 02/12/19 13:00 02/13/19 13:41 Duoneb NEB Not Given [id number] JOLENE Amitriptyline HCl 10 mg 02/12/19 21:00 02/12/19 21:18 Elavil PO 10 mg HS JOLENE Administration Aspirin 81 mg 02/12/19 09:00 02/13/19 09:33 Ecotrin PO 81 mg DAILY JOLENE Administration Dronedarone 400 mg 02/12/19 17:00 02/13/19 09:33 Multaq PO 400 mg BID-WM JOLENE Administration Levothyroxine Sodium 50 mcg 02/13/19 06:00 02/13/19 06:07 Synthroid PO 50 mcg 0600 JOLENE Administration Morphine Sulfate 2 mg 02/12/19 00:21 02/12/19 01:05 Morphine SLOW IVP 2 mg Q4H PRN Administration Breakthrough Pain Potassium Chloride 10 meq 02/13/19 08:00 02/13/19 09:34 Klor-Con 10 PO 10 meq QAM-WM JOLENE Administration Sulfasalazine 1,500 mg 02/12/19 09:00 02/13/19 09:34 Azulfidine PO 1,500 mg BID JOLENE Administration - Exam General Appearance: awake alert, ill appearing Eye: PERRL, anicteric sclera ENT: no oropharyngeal lesions, moist mucosa Neck: supple, no JVD Heart: RRR, no murmur Respiratory: no wheezes, no rales Gastrointestinal: soft, non-tender, non-distended, normal bowel sounds Extremities: no cyanosis, no clubbing Neurological: cranial nerve grossly intact, no focal deficits Psychiatric: normal affect, A&O x 3 Hosp A/P (1) Acute metabolic encephalopathy Code(s): G93.41 - METABOLIC ENCEPHALOPATHY Status: Acute (2) Fever Code(s): R50.9 - FEVER, UNSPECIFIED Status: Acute Qualifiers: Fever type: unspecified Qualified Code(s): R50.9 - Fever, unspecified (3) History of cardiac radiofrequency ablation Code(s): Z98.890 - OTHER SPECIFIED POSTPROCEDURAL STATES Status: Chronic (4) Hyponatremia Code(s): E87.1 - HYPO-OSMOLALITY AND HYPONATREMIA Status: Acute (5) COPD (chronic obstructive pulmonary disease) Status: Chronic Qualifiers: COPD type: unspecified COPD Qualified Code(s): J44.9 - Chronic obstructive pulmonary disease, unspecified (6) Hypertension Code(s): I10 - ESSENTIAL (PRIMARY) HYPERTENSION Status: Chronic Qualifiers: (7) Hypothyroidism Code(s): E03.9 - HYPOTHYROIDISM, UNSPECIFIED Status: Chronic Qualifiers: (8) Polymyalgia rheumatica Code(s): M35.3 - POLYMYALGIA RHEUMATICA Status: Chronic - Plan prelim bld and urine cs are -ve had fever of 102 this am will get CT chest/abd/pelvis, usg venous doppler to r/o dvt family wants a CA-125 level to be drawn (prior h/o ovarian ca, last treatment was in 2011) change antibiotics to merrem and vanc based on renal dosing by pharmacy ID consult continue multaq, asp, elavil, eliquis, synthroid, sulfasalazine, nebs reduce prednisone to home dose of 10mg daily echo shows ef of 60% with mod MR & TR was on antibiotics prior to arrival, cultures may not grow organism PT to mobilize as tolerated.
[2019-02-13] MEDS ORDERED: Vancomycin HCl 1 GM in Premix Bag 1 BAG IVPB SCH (14:00)
[2019-02-13] MEDS ORDERED: Vancomycin HCl 500 MG in Sodium Chloride 0.9% 100 ML IVPB SCH (14:00)
[2019-02-13] MEDS ORDERED: MEROPENEM 1 GM/50 ML 1 GM in Premix Bag 1 BAG IVPB SCH (14:00)
[2019-02-13] MEDS: MEROPENEM 1 GM/50 ML 1 GM in Premix Bag 1 BAG IVPB SCH ×2 (14:42→21:30)
--- NOTE | 2019-02-13 16:31 | CT ---
EXAM: CT chest, abdomen, and pelvis with IV contrast: HISTORY: Patient with history of ovarian cancer. History of prior colon resection and hysterectomy. Patient torres s fever of 102 degrees Fahrenheit. Recent ablation. Sepsis. COMPARISON: None FINDINGS: CT THORAX: Lungs: Mild emphysematous changes are seen in the lungs bilaterally. There are linear densities at ea ch lung base likely related to passive atelectasis. No discrete pulmonary nodule or mass is identified. Pleura: Small bilateral pleural effusions are present. Lymph nodes: No lymphadenopathy. Mediastinum: A left subclavian cardiac pacemaking device is noted in place. Dense vascular calcificat ions as well as atherosclerotic plaque is seen in the thoracic aorta with prominent eccentric atherosclerotic plaque in the descending thoracic aorta just below the level of the reji. Chest wall: Minimal subcutaneous edema is present. CT ABDOMEN AND PELVIS: Liver: Dominant hypodense lesion in the lateral segment left hepatic lobe measuring 3.6 cm. Gallbladder: Partially decompressed and not well evaluated. Pancreas: Hypodense masslike area seen in the splenic hilum which is at the level of the tail of the pancreas measuring 4.1 cm x 2.1 cm. This may represent either a mass involving the tail of the pancreas or confluent lymphadenopathy in the region of the splenic hilum. Spleen:Multiple hypodense masses are seen throughout the spleen largest seen anteriorly in the body o f the spleen measuring 4.4 cm. Adrenal glands: Within normal limits. Kidneys: Subcentimeter too small to characterize hypodense lesion inferior pole left kidney. Kidneys otherwise have a normal CT appearance for phase of imaging. Urinary Bladder: Incompletely distended but demonstrates normal appearance Reproductive organs: Evidence of hysterectomy. Bowel: Opacified bowel is normal in caliber. Adenopathy:Mildly prominent left paraortic lymph nodes largest measuring 1.1 cm in short axis dimensi on which are nonspecific. No additional enlarged lymph nodes are appreciated. Peritoneum: No free fluid or fluid collection is seen. No free intraperitoneal gas is identified. Abdominal wall: Mild subcutaneous edema is present. Osseous structures: Severe wedge-shaped compression fracture of the T8 vertebral body. There is exagg erated kyphosis of the thoracic spine centered at this level. The exact age of this fracture is difficult to determine based on CT evaluation. No additional vertebral body fracture is seen. No lyti c or sclerotic osseous lesions are identified. S-shaped sclerotic curvature thoracolumbar spine. IMPRESSION: 1. Hypodense lesions within the lateral segment left hepatic lobe with innumerable hypodense lesions seen throughout the spleen likely related to metastatic disease. 2. Mass in the splenic hilum which may represent confluent lymphadenopathy, but mass associated with the tail of the pancreas is a possibility. 3. Small bilateral pleural effusions and evidence of COPD. 4. Severe compression fracture T8 vertebral body of indeterminate age based on CT evaluation. There i s prominent exaggerated kyphosis of the thoracic spine centered at this level.
--- NOTE | 2019-02-13 18:37 | CON ---
DATE OF CONSULTATION: HISTORY OF PRESENT ILLNESS: Ms. Myers is admitted to the hospital with fever, weakness, and fatigue. The patient recently had an AV junction ablation for atrial fibrillation, which could not be controlled in terms of the rate. She is not having chest pain or pressure. She has been found to have multiple masses in her abdomen and potentially metastatic cancer. MEDICATIONS: See nurse's notes. PHYSICAL EXAMINATION: VITAL SIGNS: Blood pressure 127/59, pulse 84 and regular. LUNGS: Clear. CARDIAC: Normal S1 and normal S2. ABDOMEN: Soft and nontender. EXTREMITIES: There is no edema. ASSESSMENT: 1. Previous pacemaker and recent AV junction ablation, now with good control of heart rate. 2. Fever, being evaluated. She did have a temperature up to 102 degrees this morning. 3. Multiple masses in her abdomen. 4. History of paroxysmal atrial fibrillation. PLAN: Stop apixaban. Plan is for biopsy. I would not proceed with that tomorrow. I would await until at least Wednesday to at least give 4 half-lives of the apixaban. , we will give 6 half-lives of the apixaban. Also hold aspirin until decision is made about the biopsy. We will follow with you. Job ID: [id number]
[2019-02-13 19:09] LABS: INR-International Normal Ratio 1.2; PTT 35.4 SEC (22.9-36.1); Prothrombin Time 15.4 SEC (12.0-14.7)
[2019-02-13] MEDS: Acetaminophen 325 MG TAB PO SCH (21:28)
[2019-02-13] MEDS: Amitriptyline HCl 10 MG TAB PO SCH (21:28)
--- NOTE | 2019-02-14 00:19 | CON ---
DATE OF CONSULTATION: 02/13/2019 REASON FOR CONSULTATION: Fever. HISTORY OF PRESENT ILLNESS: An 83-year-old who has a history of chronic rheumatoid arthritis, on immunosuppressive medication, coronary artery disease with prior SD, diverticulitis, hypertension and ovarian malignancy in remission after chemotherapy, who has had worsening weakness, some altered mental status, lethargy, hypotension, and low-grade temperature elevation over the past month. This culminated in ablation on January 30 and since the ablation, she has relied on the pacemaker for her rhythm and then the afternoon of admission she had stopped eating and drinking, had a temperature elevation, was admitted. PHYSICAL EXAMINATION: VITAL SIGNS: Initial exam with BP of 164/75, pulse 82, respirations 16, O2 saturation 95, temperature 99.1. GENERAL: Chronically ill appearing. She was disoriented on arrival. EXTREMITIES: Few areas of bruising in the lower extremities, some edema. IMAGING: She had a head CT which is not remarkable. LABORATORY DATA: Initial labs demonstrated white cell count 4.7, hemoglobin 9.8, MCV 85, platelets 183 with 22% bands and a sodium of 131, creatinine 1.01, calcium 11, ferritin 17 1. CRP was 12. Albumin 2.6. TSH 3.2. Urinalysis was fairly normal. She has had 2 sets of blood cultures, thus far no growth. Urine culture, no growth at 36 hours and there is a stool occult blood, which was positive for fecal occult blood. Currently, Ms. Myers is awake. She has a little bit of hearing impairment, but she is better than when she came in and she denies headaches, no visual symptoms, sore throat, odynophagia, or dysphagia. No dyspnea or chest pain. No abdominal pain. Chronic joint symptoms, unchanged. PAST MEDICAL HISTORY: Rheumatoid arthritis, SD, ischemic cardiomyopathy, diverticulitis, hypertension, ovarian cancer in remission after chemo, last time treated in 2011, COPD, polymyalgia, A-flutter/fibrillation with ablation and pacemaker placement recently. PAST SURGICAL HISTORY: Includes colon resection for management of diverticulitis, hysterectomy and total oophorectomy. SOCIAL HISTORY: Lives at home with helpers. Former smoker, quit many years ago. No alcoholic beverage use. ALLERGIES: COMPAZINE, PENICILLIN, ZOLOFT. CURRENT MEDICATIONS: 1. Tylenol. 2. Hydrocodone. 3. [place]. 4. Proventil. 5. DuoNeb. 6. Elavil. 7. Ecotrin. 8. Dulcolax. 9. Multaq. 10. Apresoline. 11. Synthroid. 12. Meropenem. 13. Prednisone 10 mg. 14. Senna. 15. Vancomycin. PHYSICAL EXAMINATION: VITAL SIGNS: T-max 101 and then 102, blood pressure 127/59, pulse 84, respirations 18, O2 saturation 95. GENERAL: She appears chronically ill, but no acute distress. No skin lesions of note. There are significant peripheral IV access, voiding on her own in the toilet, no lymphadenopathy. HEENT: Ocular movements conjugate. Oral cavity with quite a few missing teeth, remainder ones with some decay. No oral lesions. NECK: Supple. No jugular venous distention. LUNGS: Symmetric. Clear breath sounds. HEART: S1 and S2 with diminished heart sounds. No obvious murmurs. ABDOMEN: Without organomegaly. No ascites. No bladder distention. EXTREMITIES: No joint inflammatory activity right now, some lower joint deformities, but not much considering the lengthy duration of her rheumatoid arthritis. Moves extremities equally. NEUROLOGIC: Cognitive function appears to be intact. She does have some hearing impairment. LABORATORY DATA: Followup labs with a white cell count of 3.8, hemoglobin 8.2, MCV 90, platelets 174, carbon dioxide 23, sodium 131. IMAGING: CT abdomen and pelvis showed hypodense lesions in the liver and spleen and splenic hilum. ASSESSMENT: 1. Longstanding rheumatoid arthritis. 2. Weight loss. 3. Fever of unknown origin. 4. Lethargy. DISCUSSION: The differential diagnosis includes malignancy, particularly a lymphoma or metastatic malignancy to liver and spleen versus chronic atypical infection including mycobacterial or fungal infections. Pyogenic liver abscess and splenic abscesses are also possible. The patient will need a CT-guided or ultrasound-guided biopsy. I believe the left liver lesion is the most accessible one and should submit specimens for histopathology as well as microbiology samples to include routine mycobacterial and fungal cultures. Those should give us the diagnosis and allow us to proceed with further interventions accordingly. Since she is on Eliquis, will have to discontinue Eliquis and wait for a couple of days and then have radiology perform the procedure. Again, samples need to be submitted for both histopathology and the microbiology laboratory. Ideally, a single sample would be submitted to micro lab in the sterile container with a gauze with normal saline and let them split the sample there for routine mycobacterial and fungal cultures. Evidently, if the there is a liquid within those lesions and those would be aspirated and submitted to the lab. Job ID: [id number]
[2019-02-14] MEDS: Vancomycin HCl 500 MG in Sodium Chloride 0.9% 100 ML IVPB SCH ×2 (04:39→17:51)
[2019-02-14] MEDS: Acetaminophen 325 MG TAB PO PRN (04:39)
[2019-02-14] MEDS: Sodium Chloride 0.9% 1,000 ML IV SCH ×2 (04:39→17:47)
[2019-02-14] MEDS: Levothyroxine Sodium 50 MCG TAB PO SCH (06:06)
[2019-02-14] MEDS: MEROPENEM 1 GM/50 ML 1 GM in Premix Bag 1 BAG IVPB SCH ×3 (06:08→21:16)
[2019-02-14 06:12] LABS: #Monocytes 0.5 thou/uL (0.11-0.59); #Neutrophils 3.2 thou/uL (1.40-6.50); %Eosinophils 0.6 % (0.0-10.0); %Lymphocytes 21.3 % (21.0-51.0); %Monocytes 10.2 % (0.0-10.0); %Neutrophils 67.9 % (42.0-75.0); Hemoglobin 10.6 g/dL (12.0-16.0); Mean Corpuscular HGB CONC 30.7 g/dL (32.0-36.0); Mean Corpuscular Hemoglobin 27.2 pg (27.0-31.0); Mean Corpuscular Volume 88.5 fL (78.0-98.0); Mean Platelet Volume 7.9 fL (7.4-10.4); Platelet Count 179 thou/uL (130-400); RBC Distribution Width 18.8 % (11.5-14.5); Red Blood Cell (RBC) Count 3.89 mill/uL (4.20-5.40); White Blood Cell (WBC) Count 4.6 thou/uL (4.8-10.8)
[2019-02-14 06:30] LABS: Anion Gap 12 mmol/L (10-20); BUN (Urea Nitrogen) 14 mg/dL (9.8-20.1); Calc. Creatinine Clearance 38 mL/min (70-130); Calcium 11.8 mg/dL (7.8-10.44); Carbon Dioxide 23 mmol/L (23-31); Chloride 102 mmol/L (98-107); Estimated GFR-MDRD 58; Glucose 83 mg/dL (83-110); Potassium 3.5 mmol/L (3.5-5.1); Sodium 133 mmol/L (136-145)
[2019-02-14 08:02] LABS: INR-International Normal Ratio 1.2; PTT 30.1 SEC (22.9-36.1); Prothrombin Time 14.8 SEC (12.0-14.7)
[2019-02-14 08:16] LABS: ALT (SGPT) 28 U/L (8-55); AST (SGOT) 47 U/L (5-34); Albumin 2.9 g/dL (3.4-4.8); Alkaline Phosphatase 104 U/L (40-110); Anion Gap 10 mmol/L (10-20); BUN (Urea Nitrogen) 15 mg/dL (9.8-20.1); Bilirubin, Total 0.5 mg/dL (0.2-1.2); Calc. Creatinine Clearance 36 mL/min (70-130); Calcium 11.7 mg/dL (7.8-10.44); Carbon Dioxide 23 mmol/L (23-31); Chloride 104 mmol/L (98-107); Estimated GFR-MDRD 52; Globulin 2.6 g/dL (2.4-3.5); Glucose 133 mg/dL (83-110); Potassium 3.5 mmol/L (3.5-5.1); Protein, Total 5.5 g/dL (6.0-8.3); Sodium 133 mmol/L (136-145)
[2019-02-14] MEDS ORDERED: Ibuprofen 600 MG TAB PO PRN (08:42)
[2019-02-14] MEDS ORDERED: Ibuprofen 600 MG TAB PO SCH (08:45)
[2019-02-14] MEDS: Dronedarone HCl 400 MG TAB PO SCH ×2 (09:24→17:42)
[2019-02-14] MEDS: Potassium Chloride 10 MEQ TAB PO SCH (09:24)
[2019-02-14] MEDS: predniSONE 5 MG TAB PO SCH (09:24)
[2019-02-14] MEDS: Acetaminophen/Codeine 30-300mg Tablet PO SCH (09:25)
[2019-02-14] MEDS: Acetaminophen 325 MG TAB PO SCH ×3 (09:27→21:16)
--- NOTE | 2019-02-14 16:31 | PDOC.HOSPP ---
- Subjective Encounter Date: 02/14/19 Encounter Time: 09:00 Subjective: awake, had fever of 103 this am daughter at bedside - Objective Vital Signs & Weight: Vital Signs (12 hours) Temp Pulse Pulse Pulse Resp BP BP 02/14/19 14:21 78 16 02/14/19 13:53 87 80 119/56 L 116/56 L 02/14/19 12:00 100.2 F H 80 20 02/14/19 11:00 100 F H 80 18 02/14/19 08:00 103 F H 74 20 02/14/19 06:38 02/14/19 06:36 89 18 BP Pulse Ox Pulse Ox 02/14/19 14:21 97 02/14/19 13:53 97 02/14/19 12:00 136/65 98 02/14/19 11:00 165/70 H 96 02/14/19 08:00 162/75 H 95 02/14/19 06:38 93 L 02/14/19 06:36 93 L Weight Weight 122 lb 6.4 oz I&O: 02/13/19 02/14/19 02/15/19 06:59 06:59 06:59 Intake Total 1620 2160 100 Output Total 200 800 Balance 1420 1360 100 Result Diagrams: 02/14/19 05:15 02/14/19 07:46 Hospitalist ROS - Medication Medications: Active Medications Generic Name Dose Route Start Last Admin Trade Name Freq PRN Reason Stop Dose Admin Acetaminophen 650 mg 02/12/19 11:42 02/14/19 04:39 Tylenol PO 650 mg Q6H PRN Administration Headache/Fever or Pain Acetaminophen 650 mg 02/13/19 21:00 02/14/19 14:52 Tylenol PO 650 mg TID JOLENE Administration Acetaminophen/Codeine Phosphate 2 tab 02/12/19 09:00 02/14/19 09:25 Tylenol #3 PO 2 tab DAILY JOLENE Administration Hydrocodone Bitart/Acetaminophen 1 tab 02/12/19 00:21 02/12/19 21:19 [place] 5/325 PO 1 tab Q4H PRN Administration Moderate Pain (4-6) Albuterol/Ipratropium 3 ml 02/12/19 13:00 02/14/19 14:21 Duoneb NEB 3 ml [id number] JOLENE Administration Amitriptyline HCl 10 mg 02/12/19 21:00 02/13/19 21:28 Elavil PO 10 mg HS JOLENE Administration Dronedarone 400 mg 02/12/19 17:00 02/14/19 09:24 Multaq PO 400 mg BID-WM JOLENE Administration Sodium Chloride 1,000 mls @ 75 mls/hr 02/14/19 01:45 02/14/19 04:39 Normal Saline 0.9% IV 1,000 mls .[id number] JOLENE Administration Meropenem 1 gm/ Device 50 mls @ 100 mls/hr 02/13/19 14:00 02/14/19 14:52 IVPB 50 mls Q8HR JOLENE Administration Vancomycin HCl 500 mg/ Sodium 100 mls @ 100 mls/hr 02/13/19 17:00 02/14/19 04 :39 Chloride IVPB 100 mls 0500,1700 JOLENE Administration Levothyroxine Sodium 50 mcg 02/13/19 06:00 02/14/19 06:06 Synthroid PO 50 mcg 0600 JOLENE Administration Morphine Sulfate 2 mg 02/12/19 00:21 02/12/19 01:05 Morphine SLOW IVP 2 mg Q4H PRN Administration Breakthrough Pain Prednisone 10 mg 02/14/19 08:00 02/14/19 09:24 Prednisone PO 10 mg QAM-WM JOLENE Administration - Exam General Appearance: awake alert, ill appearing Eye: PERRL, anicteric sclera ENT: no oropharyngeal lesions, dry oral mucosa Neck: supple, no JVD Heart: RRR, no murmur Respiratory: no wheezes, no rales Gastrointestinal: soft, non-tender, non-distended, normal bowel sounds Extremities: no cyanosis, no edema Neurological: cranial nerve grossly intact, no focal deficits Hosp A/P (1) Acute metabolic encephalopathy Code(s): G93.41 - METABOLIC ENCEPHALOPATHY Status: Acute (2) Fever Code(s): R50.9 - FEVER, UNSPECIFIED Status: Acute Qualifiers: Fever type: unspecified Qualified Code(s): R50.9 - Fever, unspecified (3) History of cardiac radiofrequency ablation Code(s): Z98.890 - OTHER SPECIFIED POSTPROCEDURAL STATES Status: Chronic (4) Hyponatremia Code(s): E87.1 - HYPO-OSMOLALITY AND HYPONATREMIA Status: Acute (5) COPD (chronic obstructive pulmonary disease) Status: Chronic Qualifiers: COPD type: unspecified COPD Qualified Code(s): J44.9 - Chronic obstructive pulmonary disease, unspecified (6) Hypertension Code(s): I10 - ESSENTIAL (PRIMARY) HYPERTENSION Status: Chronic Qualifiers: (7) Hypothyroidism Code(s): E03.9 - HYPOTHYROIDISM, UNSPECIFIED Status: Chronic Qualifiers: (8) Polymyalgia rheumatica Code(s): M35.3 - POLYMYALGIA RHEUMATICA Status: Chronic (9) Multiple lesions of metastatic malignancy Code(s): C79.9 - SECONDARY MALIGNANT NEOPLASM OF UNSPECIFIED SITE Status: Acute - Plan bld and urine cs are -ve had fever of 103 this am, likely from malignancy? prior h/o ovarian ca, last treatment was in 2011 continue merrem and vanc based on renal dosing by pharmacy diarrhea after oral contrast?/antibiotics, cdiff is -ve continue multaq, asp, elavil, eliquis, synthroid, nebs, anoro elipta inh prednisone home dose of 10mg daily echo shows ef of 60% with mod MR & TR was on antibiotics prior to arrival, cultures may not grow organism PT to mobilize as tolerated. CT guided biopsy of left liver lesion in am, is off eliquis from yesterday.
[2019-02-14] MEDS: Vancomycin HCl 750 MG in Sodium Chloride 0.9% 250 ML 250 ML IVPB SCH (17:38)
[2019-02-14] MEDS: sulfaSALAzine 500 MG TAB PO SCH (17:51)
[2019-02-14] MEDS: traMADol HCl 50 MG TAB PO PRN (19:42)
[2019-02-14] MEDS: Amitriptyline HCl 10 MG TAB PO SCH (21:16)
[2019-02-15] MEDS: Acetaminophen 325 MG TAB PO PRN (03:31)
[2019-02-15] MEDS: Levothyroxine Sodium 50 MCG TAB PO SCH (05:24)
[2019-02-15] MEDS: Vancomycin HCl 750 MG in Sodium Chloride 0.9% 250 ML 250 ML IVPB SCH (05:24)
[2019-02-15] MEDS: MEROPENEM 1 GM/50 ML 1 GM in Premix Bag 1 BAG IVPB SCH ×2 (05:25→15:00)
[2019-02-15] MEDS: Sodium Chloride 0.9% 1,000 ML IV SCH ×2 (05:26→13:11)
[2019-02-15] MEDS ORDERED: Non-Formulary Item 1 EACH (Umeclidinium Brm/Vilanterol Tr [Anoro Ellipta] 1 INH) IH SCH (09:00)
[2019-02-15] MEDS: Dronedarone HCl 400 MG TAB PO SCH ×2 (09:27→18:22)
[2019-02-15] MEDS: Acetaminophen/Codeine 30-300mg Tablet PO SCH (09:27)
[2019-02-15] MEDS: ANORO ELLIPTA INH SCH (09:28)
[2019-02-15] MEDS: Acetaminophen 325 MG TAB PO SCH ×3 (09:30→20:29)
[2019-02-15] MEDS ORDERED: Midazolam HCl 2 mg/2 ml Vial ONE (10:49)
[2019-02-15] MEDS ORDERED: Fentanyl 100 MCG/2 ML VIAL ONE (10:49)
[2019-02-15] MEDS ORDERED: Sodium Bicarbonate 2.5 MEQ/5 ML VIAL ONE (10:49)
--- NOTE | 2019-02-15 13:10 | PDOC.HOSPP ---
- Subjective Encounter Date: 02/15/19 Encounter Time: 12:00 Subjective: lethargic, had fever again but better eating poorly daughter at bedside - Objective Vital Signs & Weight: Vital Signs (12 hours) Temp Pulse Resp BP Pulse Ox 02/15/19 12:00 99.2 F 118 H 20 148/72 H 94 L 02/15/19 08:00 95 02/15/19 07:36 98.2 F 90 18 149/67 H 95 02/15/19 07:15 88 16 98 02/15/19 04:00 97.6 F 91 24 H 110/53 L 96 02/15/19 02:05 97 02/15/19 01:10 91 16 95 Weight Weight 127 lb 11.2 oz I&O: 02/14/19 02/15/19 02/16/19 06:59 06:59 06:59 Intake Total 2160 3443 Output Total 800 700 Balance 1360 2743 Result Diagrams: 02/19/19 04:22 02/19/19 04:22 Hospitalist ROS - Medication Medications: Active Medications Generic Name Dose Route Start Last Admin Trade Name Freq PRN Reason Stop Dose Admin Acetaminophen 650 mg 02/12/19 11:42 02/15/19 03:31 Tylenol PO 650 mg Q6H PRN Administration Headache/Fever or Pain Acetaminophen 650 mg 02/13/19 21:00 02/15/19 09:30 Tylenol PO Not Given TID JOLENE Acetaminophen/Codeine Phosphate 2 tab 02/12/19 09:00 02/15/19 09:27 Tylenol #3 PO 2 tab DAILY JOLENE Administration Hydrocodone Bitart/Acetaminophen 1 tab 02/12/19 00:21 02/12/19 21:19 [place] 5/325 PO 1 tab Q4H PRN Administration Moderate Pain (4-6) Albuterol/Ipratropium 3 ml 02/12/19 13:00 02/15/19 07:15 Duoneb NEB 3 ml [id number] JOLENE Administration Amitriptyline HCl 10 mg 02/12/19 21:00 02/14/19 21:16 Elavil PO 10 mg HS JOLENE Administration Dronedarone 400 mg 02/12/19 17:00 02/15/19 09:27 Multaq PO 400 mg BID-WM JOLENE Administration Sodium Chloride 1,000 mls @ 75 mls/hr 02/14/19 01:45 02/15/19 05:26 Normal Saline 0.9% IV Not Given .[id number] JOLENE Meropenem 1 gm/ Device 50 mls @ 100 mls/hr 02/13/19 14:00 02/15/19 05:25 IVPB 50 mls Q8HR JOLENE Administration Vancomycin HCl 750 mg/ Sodium 250 mls @ 250 mls/hr 02/14/19 17:00 02/15/19 05 :24 Chloride IVPB 250 mls 0500,1700 JOLENE Administration Levothyroxine Sodium 50 mcg 02/13/19 06:00 02/15/19 05:24 Synthroid PO 50 mcg 0600 JOLENE Administration Morphine Sulfate 2 mg 02/12/19 00:21 02/12/19 01:05 Morphine SLOW IVP 2 mg Q4H PRN Administration Breakthrough Pain Patient's Home 0 each 02/15/19 10:00 02/15/19 09:28 Medication Anoro INH 1 each Ellipta 1000 JOLENE Administration Prednisone 10 mg 02/14/19 08:00 02/14/19 09:24 Prednisone PO 10 mg QAM-WM JOLENE Administration Tramadol HCl 50 mg 02/14/19 11:03 02/14/19 19:42 Ultram PO 50 mg Q6H PRN Administration Pain - Exam General Appearance: awake alert Eye: PERRL, anicteric sclera ENT: no oropharyngeal lesions, moist mucosa Neck: supple, no JVD Heart: RRR, no murmur Respiratory: no wheezes, no rales Gastrointestinal: soft, non-tender, non-distended, normal bowel sounds Extremities: no cyanosis, no edema Neurological: cranial nerve grossly intact, no focal deficits Hosp A/P (1) Multiple lesions of metastatic malignancy Code(s): C79.9 - SECONDARY MALIGNANT NEOPLASM OF UNSPECIFIED SITE Status: Acute (2) Acute metabolic encephalopathy Code(s): G93.41 - METABOLIC ENCEPHALOPATHY Status: Acute (3) Fever Code(s): R50.9 - FEVER, UNSPECIFIED Status: Acute Qualifiers: Fever type: unspecified Qualified Code(s): R50.9 - Fever, unspecified (4) History of cardiac radiofrequency ablation Code(s): Z98.890 - OTHER SPECIFIED POSTPROCEDURAL STATES Status: Chronic (5) Hyponatremia Code(s): E87.1 - HYPO-OSMOLALITY AND HYPONATREMIA Status: Acute (6) COPD (chronic obstructive pulmonary disease) Status: Chronic Qualifiers: COPD type: unspecified COPD Qualified Code(s): J44.9 - Chronic obstructive pulmonary disease, unspecified (7) Hypertension Code(s): I10 - ESSENTIAL (PRIMARY) HYPERTENSION Status: Chronic Qualifiers: (8) Hypothyroidism Code(s): E03.9 - HYPOTHYROIDISM, UNSPECIFIED Status: Chronic Qualifiers: (9) Polymyalgia rheumatica Code(s): M35.3 - POLYMYALGIA RHEUMATICA Status: Chronic - Plan had CT guided liver biopsy this afternoon bld and urine cs are -ve fever likely from malignancy? prior h/o ovarian ca, last treatment was in 2011 continue merrem and vanc based on renal dosing by pharmacy diarrhea after oral contrast?/antibiotics, cdiff is -ve continue multaq, asp, elavil, eliquis, synthroid, nebs, anoro elipta inh prednisone home dose of 10mg daily echo shows ef of 60% with mod MR & TR was on antibiotics prior to arrival, cultures may not grow organism PT to mobilize as tolerated.
[2019-02-15] MEDS: predniSONE 5 MG TAB PO SCH (15:21)
--- NOTE | 2019-02-15 15:24 | CT ---
CT Liver Perc Biopsy CT GUIDED HEPATIC BIOPSY: CLINICAL HISTORY: Indeterminate liver lesion. PROCEDURE: Informed consent was obtained and the patient was escorted to the procedural suite, placed in supine position. The patient's skin was prepped and draped in a standard sterile fashion and topical anesthesia with buffered 1% lidocaine was performed. After a small skin incision was made, an 18-gaug e needle were advanced to the leading edge of the left hepatic lobe mass. After adequate placement was confirmed with CT fluoroscopic imaging, a single FNA sampling was performed, followed by 2 subseq uent core specimens, which were obtained via percutaneous biopsy. These were confirmed with CT fluoroscopic imaging and the specimens were submitted to the pathologist for adequacy. Specimens were deemed adequate for interpretation. Therefore, all devices were then removed from the patient. No unexpected procedural complications were present. The patient was monitored in radiology holding i n stable condition prior to discharge with family member. IMPRESSION: Technically successful percutaneous hepatic biopsy. Pathology results are pending.
[2019-02-15] MEDS ORDERED: Furosemide 40 MG/4 ML VIAL SLOW IVP SCH (15:45)
[2019-02-15 15:52] LABS: Actual Bicarbonate (HCO3a) 21.8 mEq/L (22-28); Base Excess (BEa) -1.2 mEq/L (-2.0 to +3.0); CO2 Tension 30.1 mmHg (35.0-45.0); Calcium, Ionized 1.71 mmol/L (1.12-1.30); Carboxyhemoglobin (COHb) 1.7 gm% (0.0-3.0); Hemoglobin (Hb) 9.5 g/dL (12.0-16.0); O2 Tension (PaO2) 70.8 mmHg (> 60.0); Potassium - ABG Lab 3.77 mmol/L (3.70-5.30); Puncture Site RRA; pH, Arterial 7.48 (7.35-7.45)
[2019-02-15 15:53] LABS: ALV-art Gradient 91.215 (0-20)
--- NOTE | 2019-02-15 16:17 | RAD ---
Exam: Chest one view HISTORY:Short of breath Comparison: 02/13/2019 FINDINGS: Lungs: Progressive right basilar density. Diffuse bilateral interstitial opacities Cardiac silhouette:Stable. Redemonstration of left-sided cardiac pacing device. Pulmonary vessels: There is pulmonary vascular congestion. Pleural Spaces: Mild to moderate right pleural effusion, progressive in volume Pneumothorax: None Osseous abnormalities: None of acuity. IMPRESSION: Progressive right basilar density indicating increasing pleural fluid with adjacent atele ctasis and/or pneumonia. Diffuse interstitial opacities bilaterally along with pulmonary vascular congestion indicating fluid overload from CHF. Correlate clinically. Transcribed Date/Time: 02/15/2019 5:39 PM
[2019-02-15 17:09] LABS: A/G Ratio 0.9 (0.7-1.7); Albumin 2.3 g/dL (2.9-4.4); Alpha 1 0.4 g/dL (0.0-0.4); Alpha 2 0.7 g/dL (0.4-1.0); Beta 0.8 g/dL (0.7-1.3); Gamma 0.6 g/dL (0.4-1.8); Globulin, Total 2.5 g/dL (2.2-3.9); M-Spike Not Observed g/dL (Not Observed)
[2019-02-15] MEDS: Amitriptyline HCl 10 MG TAB PO SCH (20:30)
[2019-02-15] MEDS: traMADol HCl 50 MG TAB PO PRN (20:31)
[2019-02-16] MEDS: Acetaminophen 325 MG TAB PO PRN (03:16)
[2019-02-16] MEDS: Sodium Chloride 0.9% 1,000 ML IV SCH (03:16)
[2019-02-16] MEDS: Levothyroxine Sodium 50 MCG TAB PO SCH (05:47)
[2019-02-16] MEDS ORDERED: Ibuprofen 600 MG TAB PO SCH (09:00)
[2019-02-16] MEDS: predniSONE 5 MG TAB PO SCH (09:10)
[2019-02-16] MEDS: Acetaminophen/Codeine 30-300mg Tablet PO SCH (09:10)
[2019-02-16] MEDS: Ibuprofen 200 MG TAB PO SCH ×3 (09:11→21:06)
[2019-02-16] MEDS: Dronedarone HCl 400 MG TAB PO SCH ×2 (09:11→16:00)
[2019-02-16] MEDS: ANORO ELLIPTA INH SCH (09:12)
--- NOTE | 2019-02-16 09:13 | PRG ---
DATE OF SERVICE: 02/16/2019 SUBJECTIVE: Ms. Myers is still sleepy. She tells me that she was told that she had cancer based on the biopsy yesterday, but I do not see the biopsy report yet. OBJECTIVE: VITAL SIGNS: Blood pressure 103/53, pulse 80 and it is paced. LUNGS: Clear of any wheezing. CARDIAC: Normal S1, normal S2. ABDOMEN: Soft, nontender. ASSESSMENT: 1. Previous pacemaker with AV junction ablation for uncontrolled arrhythmias, is currently doing well. 2. Fever, improved. Now resolved, although even yesterday, still had 102.5 fever. 3. Biopsy results, from what I can tell are still pending. PLAN: Okay to discontinue telemetry. The plan is to move her to oncology from what I am told. Job ID: [id number]
[2019-02-16] MEDS: Acetaminophen 325 MG TAB PO SCH ×3 (11:05→21:06)
[2019-02-16] MEDS ORDERED: Methotrexate Sodium 2.5 MG TAB PO SCH (15:15)
--- NOTE | 2019-02-16 17:55 | PDOC.HOSPP ---
- Subjective Encounter Date: 02/16/19 Encounter Time: 11:00 Subjective: awake, lethargic, no chest pain, has sob - Objective Vital Signs & Weight: Vital Signs (12 hours) Temp Pulse Resp BP Pulse Ox 02/16/19 12:53 80 16 97 02/16/19 08:10 97.6 F 80 18 103/53 L 100 02/16/19 07:04 98 02/16/19 07:03 82 16 98 Weight Weight 133 lb 3.2 oz I&O: 02/15/19 02/16/19 02/17/19 06:59 06:59 06:59 Intake Total 3443 2485 Output Total 700 1250 Balance 2743 1235 Result Diagrams: 02/14/19 05:15 02/14/19 07:46 Hospitalist ROS - Medication Medications: Active Medications Generic Name Dose Route Start Last Admin Trade Name Freq PRN Reason Stop Dose Admin Acetaminophen 650 mg 02/12/19 11:42 02/16/19 03:16 Tylenol PO 650 mg Q6H PRN Administration Headache/Fever or Pain Acetaminophen 650 mg 02/13/19 21:00 02/16/19 15:09 Tylenol PO 650 mg TID JOLENE Administration Acetaminophen/Codeine Phosphate 2 tab 02/12/19 09:00 02/16/19 09:10 Tylenol #3 PO 2 tab DAILY JOLENE Administration Hydrocodone Bitart/Acetaminophen 1 tab 02/12/19 00:21 02/12/19 21:19 [place] 5/325 PO 1 tab Q4H PRN Administration Moderate Pain (4-6) Albuterol/Ipratropium 3 ml 02/12/19 13:00 02/16/19 12:53 Duoneb NEB 3 ml [id number] JOLENE Administration Amitriptyline HCl 10 mg 02/12/19 21:00 02/15/19 20:30 Elavil PO 10 mg HS JOLENE Administration Dronedarone 400 mg 02/12/19 17:00 02/16/19 16:00 Multaq PO 400 mg BID-WM JOLENE Administration Ibuprofen 400 mg 02/16/19 09:00 02/16/19 15:09 Motrin PO 400 mg TID JOLENE Administration Levothyroxine Sodium 50 mcg 02/13/19 06:00 02/16/19 05:47 Synthroid PO 50 mcg 0600 JOLENE Administration Morphine Sulfate 2 mg 02/12/19 00:21 02/12/19 01:05 Morphine SLOW IVP 2 mg Q4H PRN Administration Breakthrough Pain Patient's Home 0 each 02/15/19 10:00 02/16/19 09:12 Medication Anoro INH 1 each Ellipta 1000 JOLENE Administration Prednisone 10 mg 02/14/19 08:00 02/16/19 09:10 Prednisone PO 10 mg QAM-WM JOLENE Administration Sodium Chloride 10 ml 02/16/19 09:00 02/16/19 09:12 Flush - Normal Saline IVF Not Given Q12HR JOLENE Tramadol HCl 50 mg 02/14/19 11:03 02/15/19 20:31 Ultram PO 50 mg Q6H PRN Administration Pain - Exam General Appearance: ill appearing Eye: PERRL, anicteric sclera ENT: no oropharyngeal lesions, dry oral mucosa Neck: supple, no JVD Heart: RRR, no murmur Respiratory: no wheezes, no rales Gastrointestinal: soft, non-tender, non-distended, normal bowel sounds Extremities: no cyanosis, no edema Neurological: cranial nerve grossly intact, no focal deficits Hosp A/P (1) Multiple lesions of metastatic malignancy Code(s): C79.9 - SECONDARY MALIGNANT NEOPLASM OF UNSPECIFIED SITE Status: Acute (2) Acute metabolic encephalopathy Code(s): G93.41 - METABOLIC ENCEPHALOPATHY Status: Acute (3) Fever Code(s): R50.9 - FEVER, UNSPECIFIED Status: Acute Qualifiers: Fever type: unspecified Qualified Code(s): R50.9 - Fever, unspecified (4) History of cardiac radiofrequency ablation Code(s): Z98.890 - OTHER SPECIFIED POSTPROCEDURAL STATES Status: Chronic (5) Hyponatremia Code(s): E87.1 - HYPO-OSMOLALITY AND HYPONATREMIA Status: Acute (6) COPD (chronic obstructive pulmonary disease) Status: Chronic Qualifiers: COPD type: unspecified COPD Qualified Code(s): J44.9 - Chronic obstructive pulmonary disease, unspecified (7) Hypertension Code(s): I10 - ESSENTIAL (PRIMARY) HYPERTENSION Status: Chronic Qualifiers: (8) Hypothyroidism Code(s): E03.9 - HYPOTHYROIDISM, UNSPECIFIED Status: Chronic Qualifiers: (9) Polymyalgia rheumatica Code(s): M35.3 - POLYMYALGIA RHEUMATICA Status: Chronic - Plan CT guided liver biopsy results show necrotic tissue and normal hepatocytes, will need repeat biopsy will d/w intervention radiologist, will need specimen sent for fungal and mycobacterial cultures in addition to histopath. bld and urine cs are -ve fever likely from malignancy? prior h/o ovarian ca, last treatment was in 2011 diarrhea after oral contrast? resolved now. continue multaq, asp, elavil, eliquis, synthroid, nebs, anoro elipta inh prednisone home dose of 10mg daily echo shows ef of 60% with mod MR & TR was on antibiotics prior to arrival, cultures may not grow organism PT to mobilize as tolerated. d/w 2 daughters at bedside and patient
--- NOTE | 2019-02-16 18:04 | PRG ---
DATE OF SERVICE: 02/16/2019 SUBJECTIVE: Ms. Myers denies headaches. Mild dyspnea since yesterday. No chest pain. Had the procedure for biopsy, and pathology results are discussed below. Voiding without difficulty in the toilet. OBJECTIVE: VITAL SIGNS: T-max 102.5 from February 15, today 98 to 97.6. GENERAL: She appears chronically ill. HEENT: Ocular movements conjugate. NECK: Supple. LUNGS: Symmetric. Clear breath sounds. HEART: S1 and S2. Regular rate. ABDOMEN: Soft. Mild tenderness at the site of the biopsy. EXTREMITIES: No joint inflammatory activity. She moves extremities equally. LABORATORY DATA: White cell count 4.6, hemoglobin 10.8, and platelets 179. Sodium 133, creatinine 1.01, AST 47, ALT 28, and albumin 2.9. Clostridium difficile antigen and toxin negative. The pathology report was not diagnostic. Only necrotic material was present in the sample. Unfortunately, no sample submitted to micro lab. ASSESSMENT AND DISCUSSION: Longstanding rheumatoid arthritis, weight loss, fever of unknown origin, and lethargy. The biopsy unfortunately was not done, nondiagnostic. We will have to repeat biopsy sample. At this time, we will make sure that they send for micro for AFB, fungal, and routine cultures. We will also add Bartonella serology, Brucella serology, QuantiFERON, and histoplasma antigen. Job ID: [id number]
[2019-02-16] MEDS: sulfaSALAzine 500 MG TAB PO SCH (21:06)
[2019-02-16] MEDS: Amitriptyline HCl 10 MG TAB PO SCH (21:06)
[2019-02-16] MEDS ORDERED: Torsemide 10 MG TAB PO SCH (23:45)
[2019-02-17] MEDS: Acetaminophen 325 MG TAB PO PRN (03:56)
[2019-02-17] MEDS: Levothyroxine Sodium 50 MCG TAB PO SCH (06:27)
[2019-02-17] MEDS ORDERED: Midazolam HCl 2 mg/2 ml Vial ONE (08:11)
[2019-02-17] MEDS ORDERED: Fentanyl 100 MCG/2 ML VIAL ONE (08:11)
[2019-02-17] MEDS: Acetaminophen/Codeine 30-300mg Tablet PO SCH (08:23)
[2019-02-17 08:37] LABS: #Eosinphils 0.1 thou/uL (0.0-0.7); #Lymphocytes 0.7 thou/uL (1.20-3.40); #Monocytes 0.2 thou/uL (0.11-0.59); #Neutrophils 3.6 thou/uL (1.40-6.50); %Basophils 0.2 % (0.0-1.0); %Eosinophils 1.6 % (0.0-10.0); %Lymphocytes 15.7 % (21.0-51.0); %Monocytes 4.8 % (0.0-10.0); %Neutrophils 77.7 % (42.0-75.0); Hemoglobin 8.5 g/dL (12.0-16.0); Mean Corpuscular HGB CONC 30.4 g/dL (32.0-36.0); Mean Corpuscular Hemoglobin 26.8 pg (27.0-31.0); Mean Corpuscular Volume 88.2 fL (78.0-98.0); Mean Platelet Volume 8.2 fL (7.4-10.4); Platelet Count 152 thou/uL (130-400); RBC Distribution Width 18.5 % (11.5-14.5); Red Blood Cell (RBC) Count 3.18 mill/uL (4.20-5.40); White Blood Cell (WBC) Count 4.7 thou/uL (4.8-10.8)
[2019-02-17] MEDS: Ibuprofen 200 MG TAB PO SCH (08:45)
[2019-02-17 08:58] LABS: ALT (SGPT) 33 U/L (8-55); AST (SGOT) 65 U/L (5-34); Albumin 2.3 g/dL (3.4-4.8); Alkaline Phosphatase 115 U/L (40-110); Anion Gap 10 mmol/L (10-20); BUN (Urea Nitrogen) 30 mg/dL (9.8-20.1); Bilirubin, Total 0.3 mg/dL (0.2-1.2); Calc. Creatinine Clearance 22 mL/min (70-130); Carbon Dioxide 22 mmol/L (23-31); Chloride 104 mmol/L (98-107); Estimated GFR-MDRD 27; Globulin 2.3 g/dL (2.4-3.5); Glucose 110 mg/dL (83-110); Potassium 3.9 mmol/L (3.5-5.1); Protein, Total 4.6 g/dL (6.0-8.3); Sodium 132 mmol/L (136-145)
[2019-02-17] MEDS ORDERED: Torsemide 10 MG TAB PO SCH (09:00)
[2019-02-17 09:03] LABS: Calcium 13.4 mg/dL (7.8-10.44)
[2019-02-17] MEDS: ANORO ELLIPTA INH SCH (10:00)
[2019-02-17] MEDS: predniSONE 5 MG TAB PO SCH (12:09)
[2019-02-17] MEDS: sulfaSALAzine 500 MG TAB PO SCH ×2 (12:10→21:02)
[2019-02-17] MEDS: Folic Acid 1 MG TAB PO SCH (12:10)
[2019-02-17] MEDS: Ezetimibe 10 MG TAB PO SCH (12:10)
[2019-02-17] MEDS: Dronedarone HCl 400 MG TAB PO SCH ×2 (12:11→19:27)
--- NOTE | 2019-02-17 12:12 | CT ---
CT Guided Biopsy S/I CT GUIDED HEPATIC BIOPSY: CLINICAL HISTORY: Indeterminate liver lesion. PROCEDURE: Informed consent was obtained and the patient was escorted to the procedural suite, placed in supine position. The patient's skin was prepped and draped in a standard sterile fashion and topical anesthesia with buffered 1% lidocaine was performed. After a small skin incision was made, an 18-gaug e needle were advanced to the leading edge of the left hepatic lobe mass. After adequate placement was confirmed with CT fluoroscopic imaging, 4 subsequent core specimens were obtained via percutaneou s biopsy. These were confirmed with CT fluoroscopic imaging and the specimens were submitted to the pathologist for adequacy. Specimens were deemed adequate for interpretation. Therefore, all devices w ere then removed from the patient. No unexpected procedural complications were present. The patient was monitored in radiology holding i n stable condition prior to discharge with family member. IMPRESSION: Technically successful percutaneous hepatic biopsy. Pathology results are pending.
--- NOTE | 2019-02-17 12:18 | PDOC.HOSPP ---
- Subjective Encounter Date: 02/17/19 Encounter Time: 10:00 Subjective: is going for repeat liver biopsy now no sob, is weak - Objective Vital Signs & Weight: Vital Signs (12 hours) Temp Pulse Resp BP BP Pulse Ox 02/17/19 08:35 98.5 F 82 16 140/65 97 02/17/19 06:25 98.1 F 02/17/19 06:10 100 18 02/17/19 04:14 97.7 F 100 18 128/60 92 L Weight Weight 133 lb 3.2 oz I&O: 02/16/19 02/17/19 02/18/19 06:59 06:59 06:59 Intake Total 2485 360 Output Total 1250 Balance 1235 360 Result Diagrams: 02/17/19 08:30 02/17/19 08:30 Hospitalist ROS - Medication Medications: Active Medications Generic Name Dose Route Start Last Admin Trade Name Freq PRN Reason Stop Dose Admin Acetaminophen/Codeine Phosphate 2 tab 02/12/19 09:00 02/17/19 08:23 Tylenol #3 PO 2 tab DAILY JOLENE Administration Hydrocodone Bitart/Acetaminophen 1 tab 02/12/19 00:21 02/12/19 21:19 [place] 5/325 PO 1 tab Q4H PRN Administration Moderate Pain (4-6) Albuterol/Ipratropium 3 ml 02/12/19 13:00 02/17/19 06:10 Duoneb NEB 3 ml [id number] JOLENE Administration Amitriptyline HCl 10 mg 02/12/19 21:00 02/16/19 21:06 Elavil PO 10 mg HS JOLENE Administration Dronedarone 400 mg 02/12/19 17:00 02/17/19 12:11 Multaq PO 400 mg BID-WM JOLENE Administration Ezetimibe 10 mg 02/17/19 09:00 02/17/19 12:10 Zetia PO 10 mg DAILY JOLENE Administration Folic Acid 1 mg 02/17/19 09:00 02/17/19 12:10 Folvite PO 1 mg DAILY JOLENE Administration Levothyroxine Sodium 50 mcg 02/13/19 06:00 02/17/19 06:27 Synthroid PO 50 mcg 0600 JOLENE Administration Morphine Sulfate 2 mg 02/12/19 00:21 02/12/19 01:05 Morphine SLOW IVP 2 mg Q4H PRN Administration Breakthrough Pain Pantoprazole Sodium 40 mg 02/17/19 09:00 02/17/19 12:10 Protonix PO 40 mg DAILY JOLENE Administration Patient's Home 0 each 02/15/19 10:00 02/16/19 09:12 Medication Anoro INH 1 each Ellipta 1000 JOLENE Administration Prednisone 10 mg 02/14/19 08:00 02/17/19 12:09 Prednisone PO 10 mg QAM-WM JOLENE Administration Sodium Chloride 10 ml 02/16/19 09:00 02/16/19 21:13 Flush - Normal Saline IVF 10 ml Q12HR JOLENE Administration Sulfasalazine 1,500 mg 02/16/19 21:00 02/17/19 12:10 Azulfidine PO 1,500 mg BID JOLENE Administration Tramadol HCl 50 mg 02/14/19 11:03 02/15/19 20:31 Ultram PO 50 mg Q6H PRN Administration Pain - Exam General Appearance: awake alert, ill appearing Eye: PERRL, anicteric sclera ENT: no oropharyngeal lesions, dry oral mucosa Neck: supple, no JVD Heart: RRR, no murmur Respiratory: no wheezes, no rales Gastrointestinal: soft, non-distended, normal bowel sounds Extremities: no cyanosis, no edema Neurological: cranial nerve grossly intact, no focal deficits Hosp A/P (1) Multiple lesions of metastatic malignancy Code(s): C79.9 - SECONDARY MALIGNANT NEOPLASM OF UNSPECIFIED SITE Status: Acute (2) Acute metabolic encephalopathy Code(s): G93.41 - METABOLIC ENCEPHALOPATHY Status: Acute (3) Fever Code(s): R50.9 - FEVER, UNSPECIFIED Status: Acute Qualifiers: Fever type: unspecified Qualified Code(s): R50.9 - Fever, unspecified (4) History of cardiac radiofrequency ablation Code(s): Z98.890 - OTHER SPECIFIED POSTPROCEDURAL STATES Status: Chronic (5) Hyponatremia Code(s): E87.1 - HYPO-OSMOLALITY AND HYPONATREMIA Status: Acute (6) COPD (chronic obstructive pulmonary disease) Status: Chronic Qualifiers: COPD type: unspecified COPD Qualified Code(s): J44.9 - Chronic obstructive pulmonary disease, unspecified (7) Hypertension Code(s): I10 - ESSENTIAL (PRIMARY) HYPERTENSION Status: Chronic Qualifiers: (8) Hypothyroidism Code(s): E03.9 - HYPOTHYROIDISM, UNSPECIFIED Status: Chronic Qualifiers: (9) Polymyalgia rheumatica Code(s): M35.3 - POLYMYALGIA RHEUMATICA Status: Chronic (10) Hypercalcemia Code(s): E83.52 - HYPERCALCEMIA Status: Acute (11) JAKOB (acute kidney injury) Code(s): N17.9 - ACUTE KIDNEY FAILURE, UNSPECIFIED Status: Acute - Plan Had repeat CT guided liver biopsy today, previous one was non diagnostic ( showed necrotic tissue and normal hepatocytes) specimen needs to be sent for fungal, bartonella and mycobacterial cultures in addition to histopath. bld and urine cs are -ve fever likely from malignancy? prior h/o ovarian ca, last treatment was in 2011 diarrhea after oral contrast? resolved now. continue multaq, asp, elavil, eliquis, synthroid, nebs, anoro elipta inh prednisone home dose of 10mg daily echo shows ef of 60% with mod MR & TR was on antibiotics prior to arrival, cultures may not grow organism PT to mobilize as tolerated. jakob with hypercalcemia, clinically dehydrated (moderate due to poor intake), will start d5w, nephrology is following patient Family at bedside..2 daughters want her to be DNAR, will change code status, palliative care will talk to them today
[2019-02-17] MEDS: Acetaminophen 325 MG TAB PO SCH ×2 (14:14→19:36)
[2019-02-17] MEDS: Dextrose 5% in Water 1,000 ML IV SCH (14:21)
[2019-02-17] MEDS ORDERED: Sodium Chloride 0.65% Nasal 44 ML BOT EA NARE PRN (15:09)
[2019-02-17] MEDS ORDERED: Furosemide 20 MG/2 ML VIAL SLOW IVP SCH (16:00)
--- NOTE | 2019-02-17 16:14 | PRG ---
DATE OF SERVICE: 02/17/2019 SUBJECTIVE: Ms. Myers is sleeping now. She underwent repeat biopsy today. Her family said she looks more short of breath. She is asleep now. OBJECTIVE: VITAL SIGNS: Blood pressure 169/76, pulse 80 and it is regular. LUNGS: Clear. CARDIAC: Normal S1, normal S2. ABDOMEN: Soft and nontender. EXTREMITIES: 1 to 2+ edema. PERTINENT LABORATORY DATA: The calcium is extremely high at 13.4. ASSESSMENT: 1. Hypercalcemia. 2. Probable underlying malignancy. Evaluation being undertaken. 3. Previous atrioventricular junction ablation for uncontrolled arrhythmias. 4. Coronary artery disease, stable. 5. Atrial fibrillation. PLAN: 1. Give her one dose of furosemide. 2. Currently, do not resuscitate. 3. Palliative care measures being discussed. 4. Please call us if needed, Dr. Mejia on-call this weekend if needed. Job ID: [id number]
--- NOTE | 2019-02-17 16:17 | CON ---
DATE OF CONSULTATION: REASON FOR CONSULT: Liver and splenic lesions. HISTORY OF PRESENT ILLNESS: Ms. Myers is an 83-year-old female with rheumatoid arthritis and history of ovarian cancer, who presented to the emergency room with altered mental status and fever. She was noted to have a calcium of 12.3 on admission. She was started on IV antibiotics and IV fluids with improvement in her calcium level. She did undergo a CT scan, which showed left hepatic lobe lesion measuring 3.6 cm. There was a mass at the tail of the pancreas measuring 4.1 x 2.1 cm. There was another splenic lesion measuring 4.4 cm. She had a compression fracture of T8. The patient had an ovarian cancer in 2011, family states that it was either a stage I or stage III. She underwent chemotherapy and was followed by MD Ruggiero for five years until 2017. She has not been seen since that time. She is on immunosuppressive medications for her rheumatoid arthritis. She has had a recent ablation and has felt poorly since that time. She did undergo a liver biopsy. Unfortunately, path was nondiagnostic, it was all necrotic tissue. She has undergone re-biopsy today. She has had some tumor markers drawn including a CA-125, which is 89.3. Her M spike is not observed. She is slightly confused at this time. Denies any complaints of pain. PAST MEDICAL HISTORY: 1. Ovarian cancer in 2011, status post chemotherapy. 2. Rheumatoid arthritis. 3. Coronary artery disease. 4. [place]. 5. Diverticulitis. 6. Hypertension. PAST SURGICAL HISTORY: Cardiac ablation with pacemaker placement, colon resection for diverticulitis, hysterectomy, and total oophorectomy. ALLERGIES: TO COMPAZINE, PENICILLIN, AND ZOLOFT. HOME MEDICATIONS: Noted in [employer]. FAMILY HISTORY: Noncontributory. SOCIAL HISTORY: She lives alone. She has three daughters at bedside to help. No tobacco, alcohol, or illicit drug use. REVIEW OF SYSTEMS: A 10-point review of systems is negative except for noted in HPI. PHYSICAL EXAMINATION: VITAL SIGNS: Temperature is 97.7, pulse is 84, respiratory rate 20, BP is 169/76. She is 95% on room air. GENERAL: Chronically ill-appearing, appears older than her stated age. Female, in no acute distress. HEENT: Normocephalic and atraumatic. Pupils are equal and reactive to light. NECK: Supple. CV: Regular rate and rhythm. LUNGS: Clear anterior. ABDOMEN: Soft and nontender. Bowel sounds are positive. EXTREMITIES: No clubbing or cyanosis. SKIN: No rash. HEMATOLOGIC: No petechiae or purpura. NEUROLOGIC: Nonfocal. PSYCH: She is oriented. PERTINENT LABS AND X-RAYS: Current WBCs are 4.7, hemoglobin 8.5, hematocrit 28.1, platelet counts 152,000, she has 78% neutrophils, 15% lymphocytes. Sodium 132, potassium 3.9, chloride 104, CO2 is 22, BUN is 30, creatinine 1.81, calcium 13.4, bilirubin 0.3, AST 65, ALT 33, alkaline phosphatase is 115, LDH is 452. BNP is 459. Serum total protein 4.6, albumin 2.3, globulin 2.3. CA-125 is 89. Radiology per HPI. ASSESSMENT: 1. Liver, pancreatic, and splenic lesions. 2. Hypercalcemia. 3. Atrial fibrillation with recent ablation and pacemaker placement. 4. Rheumatoid arthritis on immunosuppressives. DISCUSSION: The patient's path from her new biopsy today is currently pending. She is afebrile at this time. We will check flow cytometry and CA-19-9 per family's request and further recommendations will be based on these results. Thank you for the consult. We will return once we have a tissue diagnosis. Job ID: [id number]
[2019-02-17] MEDS: HYDROcodone/Acetaminophen 5/325 mg Tablet PO PRN (17:04)
[2019-02-17] MEDS: Morphine 2 MG/ML SYRINGE SLOW IVP PRN (19:28)
[2019-02-17] MEDS: Amitriptyline HCl 10 MG TAB PO SCH (21:03)
[2019-02-18] MEDS: Acetaminophen 325 MG TAB PO SCH ×2 (00:43→05:52)
[2019-02-18 01:49] LABS: ALT (SGPT) 29 U/L (8-55); AST (SGOT) 53 U/L (5-34); Albumin 2.4 g/dL (3.4-4.8); Alkaline Phosphatase 115 U/L (40-110); Anion Gap 11 mmol/L (10-20); BUN (Urea Nitrogen) 32 mg/dL (9.8-20.1); Bilirubin, Total 0.3 mg/dL (0.2-1.2); Calc. Creatinine Clearance 23 mL/min (70-130); Carbon Dioxide 23 mmol/L (23-31); Chloride 101 mmol/L (98-107); Estimated GFR-MDRD 29; Globulin 2.2 g/dL (2.4-3.5); Glucose 127 mg/dL (83-110); Protein, Total 4.6 g/dL (6.0-8.3); Sodium 131 mmol/L (136-145)
[2019-02-18 01:55] LABS: Calcium 13.4 mg/dL (7.8-10.44)
[2019-02-18] MEDS ORDERED: Calcitonin,Salmon,Synthetic 200 UNITS/ML SC SCH (02:15)
[2019-02-18] MEDS: Dextrose 5% in Water 1,000 ML IV SCH ×2 (02:49→17:28)
[2019-02-18] MEDS: Morphine 2 MG/ML SYRINGE SLOW IVP PRN ×4 (05:21→22:25)
[2019-02-18] MEDS: Levothyroxine Sodium 50 MCG TAB PO SCH (05:52)
[2019-02-18] MEDS: Dronedarone HCl 400 MG TAB PO SCH ×2 (08:00→18:19)
[2019-02-18] MEDS: Acetaminophen 650 MG/20.3 ML UDCUP PO SCH ×4 (08:34→23:37)
[2019-02-18] MEDS: Acetaminophen/Codeine 30-300mg Tablet PO SCH (09:00)
[2019-02-18] MEDS: Folic Acid 1 MG TAB PO SCH (09:00)
[2019-02-18] MEDS: ANORO ELLIPTA INH SCH (10:00)
[2019-02-18] MEDS ORDERED: Dexamethasone 10 MG/ML VIAL SLOW IVP SCH (10:15)
[2019-02-18] MEDS: predniSONE 5 MG TAB PO SCH (10:21)
[2019-02-18] MEDS: Ezetimibe 10 MG TAB PO SCH (10:21)
[2019-02-18] MEDS ORDERED: Zoledronic Acid 4 MG in Sodium Chloride 0.9% 100 ML IVPB SCH (10:30)
[2019-02-18] MEDS ORDERED: Pantoprazole 40 MG VIAL ONE (10:49)
[2019-02-18] MEDS ORDERED: Furosemide 20 MG/2 ML VIAL SLOW IVP SCH (11:00)
[2019-02-18] MEDS ORDERED: Lorazepam 2 MG/ML VIAL SLOW IVP SCH (11:00)
[2019-02-18] MEDS: sulfaSALAzine 500 MG TAB PO SCH (11:01)
--- NOTE | 2019-02-18 11:35 | PRG ---
DATE OF SERVICE: 02/18/2019 SUBJECTIVE: The patient is a little agitated. She feels like she needs to void in spite of the [place] catheter once, wants to sit up, reports hurting, but is not able to be real specific in describing her discomfort. OBJECTIVE: VITAL SIGNS: Temperature is 98.8, pulse 80, respirations 18, O2 saturation 95% on 2 L nasal cannula, and BP 132/63. GENERAL: She is awake. She is borderline agitated. She is trying to get up and stand up, and says she needs to avoid her daughters or their assisting her, and they get her briefly to a standing position while basically holding her in a full body hug. HEART: Regular with no tachycardia. LUNGS: Diminished, but no wheezes or rales are noted. ABDOMEN: Slightly distended with some gaseous distention. Does not appear to be significantly tender to palpation. EXTREMITIES: Have 1+ edema to the level of the knees. LABORATORY DATA: Sodium 131, potassium 4.0, chloride 101, CO2 23, BUN 32, creatinine is 1.7, GFR is 29, glucose 127, calcium is 13.4, AST 53, ALT 29, alkaline phosphatase is 115, albumin is 2.4. CA 19-9 was 24. AFB smear from the liver biopsy was negative on an unconcentrated smear. IMPRESSION AND PLAN: 1. Lesions in the liver and spleen concerning for metastatic disease. She had an initial biopsy, which unfortunately was nondiagnostic and repeat biopsy has been obtained. Awaiting results on that. 2. Altered mental status. The patient has some agitation. It is unclear if this is related to her hypercalcemia, some hospital psychoses, some affects from medications. The family was clear they want her to be comfortable and are amenable to giving Ativan on top of the morphine that she recently received. They were also reporting that she says she is having some itching. We will add low-dose Benadryl on top of the Ativan, if she is not fully resolved with the Ativan. 3. Severe hypercalcemia. Thus far, got a little better and then has gotten worse again. We will add zoledronate and discontinue the calcitonin. We will also discontinue the prednisone and add Decadron. 4. Anorexia. The patient has been essentially refusing to eat much or take p.o. medications. We will try to transition over to IV as much as we can. The other medications that she is on that are oral, certainly she can decline. The only medicine of concern that would be oral would be the Multaq. 5. Acute on chronic kidney disease. Her renal function has been slightly worse. We will continue to monitor. Nephrology following. 6. Peripheral edema in light of her history of being on p.o. diuretic daily. For hypercalcemia and the edema, we will go ahead give her another dose of Lasix today. 7. Chronic respiratory failure. Continue with the supplemental oxygen. 8. History of AV junction ablation for uncontrolled arrhythmias. Continue Multaq, if she tolerates. 9. History of coronary artery disease. 10. Atrial fibrillation. Again, continue with the Multaq. She has been on Eliquis previously, that is currently being held given the apparent metastatic disease, her risk for falls and the potential need for further biopsies. 11. Pain. The patient has reported some abdominal pain and some back pain. She also originally had some diffuse arthralgias due to either prolonged rheumatoid or polymyalgia rheumatica. She has IV pain medications available to her and again, the family has been clear. They would like her to be comfortable and she is a DNAR at this point, therefore comfortable giving benzodiazepines along with the opioids. 12. Hyponatremia, likely related to her poor p.o. intake. Her renal disease in the underlying malignancy. 13. History of hypertension. Try p.o. as tolerated. It is a little high, but very manageable now. 14. Hypothyroidism, p.o. as tolerated. 15. Polymyalgia rheumatica. Continue with the IV steroids. We will hold the Azulfidine given her poor p.o. intake. Job ID: [id number]
--- NOTE | 2019-02-18 12:19 | EKG ---
Test Reason : Blood Pressure : / mmHG Vent. Rate : 082 BPM Atrial Rate : 082 BPM P-R Int : 000 ms QRS Dur : 132 ms QT Int : 388 ms P-R-T Axes : 000 -63 103 degrees QTc Int : 453 ms AV sequential or dual chamber electronic pacemaker Artifact Present Confirmed by MALISSA HORAN MD ([id number]), script editor EDWIN KING ([id number]) on 02/18/2019 12:19:29 PM Referred By: Confirmed By:MALISSA HORAN MD
[2019-02-18] MEDS: Lorazepam 2 MG/ML VIAL SLOW IVP PRN (18:46)
[2019-02-18] MEDS: Amitriptyline HCl 10 MG TAB PO SCH (21:41)
[2019-02-19 04:28] LABS: #Lymphocytes 0.6 thou/uL (1.20-3.40); #Neutrophils 5.9 thou/uL (1.40-6.50); %Basophils 0.1 % (0.0-1.0); %Eosinophils 0.1 % (0.0-10.0); %Lymphocytes 8.9 % (21.0-51.0); %Monocytes 0.3 % (0.0-10.0); %Neutrophils 90.5 % (42.0-75.0); Hemoglobin 8.2 g/dL (12.0-16.0); Mean Corpuscular HGB CONC 30.8 g/dL (32.0-36.0); Mean Corpuscular Hemoglobin 26.3 pg (27.0-31.0); Mean Corpuscular Volume 85.5 fL (78.0-98.0); Mean Platelet Volume 8.2 fL (7.4-10.4); Platelet Count 140 thou/uL (130-400); RBC Distribution Width 18.3 % (11.5-14.5); Red Blood Cell (RBC) Count 3.11 mill/uL (4.20-5.40); White Blood Cell (WBC) Count 6.5 thou/uL (4.8-10.8)
[2019-02-19] MEDS: Dextrose 5% in Water 1,000 ML IV SCH (04:35)
[2019-02-19] MEDS: Morphine 2 MG/ML SYRINGE SLOW IVP PRN ×5 (04:37→18:10)
[2019-02-19 04:50] LABS: ALT (SGPT) 37 U/L (8-55); AST (SGOT) 75 U/L (5-34); Albumin 2.6 g/dL (3.4-4.8); Alkaline Phosphatase 100 U/L (40-110); Anion Gap 9 mmol/L (10-20); BUN (Urea Nitrogen) 32 mg/dL (9.8-20.1); Bilirubin, Total 0.3 mg/dL (0.2-1.2); Calc. Creatinine Clearance 31 mL/min (70-130); Calcium 11.7 mg/dL (7.8-10.44); Carbon Dioxide 25 mmol/L (23-31); Chloride 101 mmol/L (98-107); Estimated GFR-MDRD 39; Globulin 2.3 g/dL (2.4-3.5); Glucose 138 mg/dL (83-110); Potassium 4.1 mmol/L (3.5-5.1); Protein, Total 4.9 g/dL (6.0-8.3); Sodium 131 mmol/L (136-145)
[2019-02-19] MEDS: Acetaminophen 650 MG/20.3 ML UDCUP PO SCH ×2 (05:25→12:00)
[2019-02-19] MEDS: Levothyroxine Sodium 50 MCG TAB PO SCH (05:26)
[2019-02-19] MEDS ORDERED: Pantoprazole 40 MG VIAL IVP SCH (09:00)
[2019-02-19] MEDS ORDERED: Dexamethasone 10 MG/ML VIAL SLOW IVP SCH (09:00)
[2019-02-19 09:28] VITALS: TEMP 98.5
[2019-02-19] MEDS: Dronedarone HCl 400 MG TAB PO SCH (09:29)
[2019-02-19] MEDS: Acetaminophen/Codeine 30-300mg Tablet PO SCH (09:29)
[2019-02-19] MEDS: ANORO ELLIPTA INH SCH (09:30)
[2019-02-19] MEDS: Folic Acid 1 MG TAB PO SCH (09:30)
[2019-02-19 09:42] VITALS: BP 193/81
--- NOTE | 2019-02-19 10:19 | PDOC.HOSPP ---
- Subjective Encounter Date: 02/19/19 Encounter Time: 10:17 Subjective: Family reports she is still requiring pain meds. Told her daughter it hurts to even open her mouth. Had morphine this morning. - Objective Vital Signs & Weight: Vital Signs (12 hours) Temp Pulse Resp BP BP Pulse Ox 02/19/19 09:41 80 193/81 H 02/19/19 09:00 98.5 F 80 20 192/86 H 90 L 02/19/19 06:30 80 22 H 02/19/19 00:22 84 20 Weight Weight 133 lb 3.2 oz I&O: 02/18/19 02/19/19 02/20/19 06:59 06:59 06:59 Intake Total 1120 750 Output Total 0900 6872 Balance -427 -0792 Result Diagrams: 02/19/19 04:22 02/19/19 04:22 Hospitalist ROS - Medication Medications: Active Medications Generic Name Dose Route Start Last Admin Trade Name Freq PRN Reason Stop Dose Admin Acetaminophen 650 mg 02/18/19 06:00 02/19/19 05:25 Tylenol Elixir PO Not Given Q6HR JOLENE Acetaminophen/Codeine Phosphate 2 tab 02/12/19 09:00 02/19/19 09:29 Tylenol #3 PO Not Given DAILY JOLENE Albuterol/Ipratropium 3 ml 02/12/19 13:00 02/19/19 06:30 Duoneb NEB 3 ml [id number] JOLENE Administration Dexamethasone 10 mg 02/19/19 09:00 02/19/19 09:37 Decadron SLOW IVP 10 mg DAILY JOLENE Administration Lorazepam 0.5 mg 02/18/19 18:25 02/18/19 18:46 Ativan SLOW IVP 0.5 mg Q6H PRN Administration Anxiety/Agitation Sodium Chloride 10 ml 02/16/19 09:00 02/19/19 09:30 Flush - Normal Saline IVF Not Given Q12HR JOLENE Sodium Chloride 10 ml 02/16/19 07:43 02/18/19 10:57 Flush - Normal Saline IVF 10 ml PRN PRN Administration Saline Flush Sodium Chloride 0 ml 02/17/19 15:09 02/17/19 21:04 Atco Nasal [place] 0.65% EA NARE 1 spray PRN PRN Administration Nasal Dryness - Exam General Appearance: ill appearing General - other findings: somnolent. Heart: RRR, II/IV Respiratory: rales (Fine, scattered.) Gastrointestinal: soft, tender to palpation Extremities: 1+ LE edema (Dependent), 2+ LE edema (Dependent) Psychiatric: somnolent Psychiatric - other findings: Does not open eyes to stim. Hosp A/P (1) Acute metabolic encephalopathy Code(s): G93.41 - METABOLIC ENCEPHALOPATHY Status: Acute (2) Elevated troponin Code(s): R74.8 - ABNORMAL LEVELS OF OTHER SERUM ENZYMES Status: Acute (3) History of cardiac radiofrequency ablation Code(s): Z98.890 - OTHER SPECIFIED POSTPROCEDURAL STATES Status: Chronic (4) Fever Code(s): R50.9 - FEVER, UNSPECIFIED Status: Acute Qualifiers: Fever type: unspecified Qualified Code(s): R50.9 - Fever, unspecified (5) Hypercalcemia Code(s): E83.52 - HYPERCALCEMIA Status: Acute (6) Hyponatremia Code(s): E87.1 - HYPO-OSMOLALITY AND HYPONATREMIA Status: Acute (7) COPD (chronic obstructive pulmonary disease) Status: Chronic Qualifiers: COPD type: unspecified COPD Qualified Code(s): J44.9 - Chronic obstructive pulmonary disease, unspecified (8) Hx of diastolic dysfunction Code(s): Z86.79 - PERSONAL HISTORY OF OTHER DISEASES OF THE CIRCULATORY SYSTEM Status: Acute (9) Atrial fibrillation and flutter Code(s): I48.91 - UNSPECIFIED ATRIAL FIBRILLATION; I48.92 - UNSPECIFIED ATRIAL FLUTTER Status: Chronic (10) CKD (chronic kidney disease), stage III Code(s): N18.3 - CHRONIC KIDNEY DISEASE, STAGE 3 (MODERATE) Status: Chronic (11) Coronary arteriosclerosis Status: Chronic (12) Hypertension Code(s): I10 - ESSENTIAL (PRIMARY) HYPERTENSION Status: Chronic Qualifiers: (13) Hypothyroidism Code(s): E03.9 - HYPOTHYROIDISM, UNSPECIFIED Status: Chronic Qualifiers: (14) Polymyalgia rheumatica Code(s): M35.3 - POLYMYALGIA RHEUMATICA Status: Chronic (15) Anemia in chronic kidney disease (CKD) Code(s): N18.9 - CHRONIC KIDNEY DISEASE, UNSPECIFIED; D63.1 - ANEMIA IN CHRONIC KIDNEY DISEASE Status: Acute (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 They are ready to move to a comfort care only approach and to speak with hospice. CM consult for Hospice entered. DC all non-palliative meds and IVF per family request.
[2019-02-19] MEDS: Lorazepam 2 MG/ML VIAL SLOW IVP PRN (12:38)
[2019-02-20 17:09] LABS: Albumin-Ur 25.6 % (.); Alpha 1 - Ur 3.3 % (.); Alpha 2 - Ur 17.8 % (.); Beta-Ur 29.8 % (.); Gamma-Ur 23.5 % (.); M-Spike,% Not Observed % (Not Observed); Protein, Urine 54.4 mg/dL (Not Estab.)
[2019-02-21 12:10] LABS: Bartonella henselae IgG Negative titer (Neg:<1:320); Bartonella henselae IgM Negative titer (Neg:<1:100); Bartonella quintana IgG Negative titer (Neg:<1:320); Bartonella quintana IgM Negative titer (Neg:<1:100); QuantiFERON-TB Gold Plus Negative (Negative)
[2019-02-21 14:10] LABS: Brucella IgM Ab Negative (Negative)
--- NOTE | 2019-02-22 07:30 | PQF ---
MAGED NUNEZ DAVID R MD [id number] [id number] [id number] CLINICAL DOCUMENTATION CLARIFICATION FORM: POST DISCHARGE Addendum to original discharge summary date: ____ Late entry note date: __ DATE: 02-22-2019 ATTN: Donald Dozier Please exercise your independent, professional judgment in responding to the clarification form. Clinical indicators are provided on the bottom of this form for your review Can you please specify whether the patient liver mets is ruled in or ruled out during this encounter? Please check appropriate box(s) to clarify if the following diagnosis has been ruled in or ruled out: liver metastasize [ ] Ruled in diagnosis [ ] Continue to treat [ ] Resolved [ ] Ruled out diagnosis [ ] Cannot rule out diagnosis [ ] Other diagnosis please specify: [ x ] Unable to determine For continuity of documentation, please document condition throughout progress notes and discharge summary. Thank You. CLINICAL INDICATORS: HP 02/[address] Reid presents to the ED for weakness and hypotension Consult 02/[address] Hewittential diagnosis includes malignancy, particulary lymphoma or metastatic malignancy to liven and spleen vs. Chronic atypical infection Consult 02/[address] Aranda She has been found to have multiple masses in her abdomen and potentially metastatic cancer Liver biopsy surgical specimen 02/17-liver mass cyst- necrotic tissue with increased numbers of degenerated atypical CD20 positive B cells Comment: The patient has history of ovarian carcinoma. The needle biopsy are characterized by having a portion of viable liver tissue, no significant amount of B cells. PN 10/ pg4 Dr. Dozier Hypercalcemia PN 02/[address] Dozier Neoplasm liver RISK FACTOR: HP 03/13 Dr. Reid-Malignancy, primary site Ovarian treated with chemotherapy last treatment 2011 HP 03/13 Dr. Reid- Colon resection HP 03/13 Dr. Reid- Hysterectomy Consult 02/13- on immunosupressive medication Consult 02/13- Former smoker TREATMENTS: Imaging 02/13- CT Abdomen/ Pelvis CT Liver Biopsy 02/15 and 02/17- IV fluids (This form is maintained as a part of the permanent medical record) 2014 [employer] All Rights Reserved David [email or web address] [not provided] MTDD
[2019-02-22 08:11] LABS: Fungus Stain Final report (.)
== END 2019-02-19 18:16 | disposition hospice, inpatient (51) | DRG 441 ==
LOC: ERS 20:34 → 2NO 21:50 → ONC 02-16 18:28
PROVIDERS: ADMIT Student in an Organized Health Care Education/Training Program; ATTEND Student in an Organized Health Care Education/Training Program
PROC: 0FB23ZX Excision of Left Lobe Liver, Percutaneous Approach, Diagnostic (ICD-10-PCS; principal; 2019-02-15)
PROC: 0FB23ZX Excision of Left Lobe Liver, Percutaneous Approach, Diagnostic (ICD-10-PCS; 2019-02-17)
DX: K76.9 Liver disease, unspecified (principal); G93.41 Metabolic encephalopathy; I13.0 Hypertensive heart and chronic kidney disease with heart failure and stage 1 through stage 4 chronic kidney disease, or unspecified chronic kidney disease; E87.1 Hypo-osmolality and hyponatremia; N17.9 Acute kidney failure, unspecified; J96.10 Chronic respiratory failure, unspecified whether with hypoxia or hypercapnia; Z66 Do not resuscitate; Z51.5 Encounter for palliative care; D73.89 Other diseases of spleen; I95.9 Hypotension, unspecified; E03.9 Hypothyroidism, unspecified; J44.9 Chronic obstructive pulmonary disease, unspecified; I50.9 Heart failure, unspecified; M06.9 Rheumatoid arthritis, unspecified; N18.3 Chronic kidney disease, stage 3 (moderate); M35.3 Polymyalgia rheumatica; E83.52 Hypercalcemia; D63.1 Anemia in chronic kidney disease; I48.0 Paroxysmal atrial fibrillation; I25.10 Atherosclerotic heart disease of native coronary artery without angina pectoris; I08.1 Rheumatic disorders of both mitral and tricuspid valves; H91.90 Unspecified hearing loss, unspecified ear; R63.0 Anorexia; E86.0 Dehydration; I49.5 Sick sinus syndrome; R19.7 Diarrhea, unspecified; Z90.5 Acquired absence of kidney; Z90.49 Acquired absence of other specified parts of digestive tract; I25.2 Old myocardial infarction; Z90.710 Acquired absence of both cervix and uterus; Z85.43 Personal history of malignant neoplasm of ovary; Z92.21 Personal history of antineoplastic chemotherapy; Z87.891 Personal history of nicotine dependence; Z88.0 Allergy status to penicillin; Z88.8 Allergy status to other drugs, medicaments and biological substances; Z95.0 Presence of cardiac pacemaker; Z87.440 Personal history of urinary (tract) infections; Z79.899 Other long term (current) drug therapy; Z79.01 Long term (current) use of anticoagulants; Z79.82 Long term (current) use of aspirin; Z79.52 Long term (current) use of systemic steroids; Z79.890 Hormone replacement therapy; Z68.22 Body mass index [BMI] 22.0-22.9, adult
CPT/HCPCS: 36415; 47000; 51701; 70450; 71045; 71260; 74177; 77012; 80048; 80053; 80069; 80202; 81003; 81015; 82140; 82232; 82274; 82306; 82533; 82553; 82570; 82607; 82728; 82746; 82805; 83520; 83540; 83550; 83615; 83880; 83930; 83935; 83970; 84165; 84166; 84443; 84484; 85025; 85610; 85652; 85730; 86140; 86200; 86301; 86304; 86480; 86611; 86622; 87040; 87070; 87086; 87102; 87116; 87205; 87206; 87324; 87449; 88307; 88312; 88333; 88334; 88341; 88342; 93005; 93306; 93970; 96360; 96361; A4353; C9113; J0360; J0630; J0696; J1100; J1650; J1940; J1956; J2060; J2185; J2250; J2270; J2930; J3010; J3370; J3489; J3490; J7050; J7512; J7620; J8610; Q9966; Q9967

== ENCOUNTER 2019-02-19 18:25 | Inpatient (IN) | payer OTHER ==
[2019-02-19] MEDS ORDERED: Ondansetron PF 4 MG/2 ML Vial IVP PRN (18:54)
[2019-02-19] MEDS: Morphine 2 MG/ML SYRINGE SLOW IVP SCH ×2 (19:30→22:02)
[2019-02-19] MEDS: Scopolamine 1.5 mg/72 hour Patch TOP SCH (20:21)
[2019-02-19] MEDS: Morphine 2 MG/ML SYRINGE SLOW IVP PRN (20:59)
[2019-02-19] MEDS: Lorazepam 2 MG/ML VIAL SLOW IVP PRN (22:02)
[2019-02-19] MEDS ORDERED: Lorazepam 2 MG/ML VIAL SLOW IVP SCH (23:59)
[2019-02-20] MEDS: Morphine 2 MG/ML SYRINGE SLOW IVP SCH ×12 (00:16→22:02)
[2019-02-20] MEDS: Lorazepam 2 MG/ML VIAL SLOW IVP PRN ×5 (02:38→19:50)
[2019-02-20 05:11] VITALS: BMI 20.5
[2019-02-20] MEDS ORDERED: diphenhydrAMINE 50 MG/ML VIAL IVP SCH (15:15)
[2019-02-21] MEDS: Lorazepam 2 MG/ML VIAL SLOW IVP PRN ×6 (00:20→23:59)
[2019-02-21] MEDS: Morphine 2 MG/ML SYRINGE SLOW IVP SCH ×12 (00:20→22:05)
[2019-02-21] MEDS: diphenhydrAMINE 50 MG/ML VIAL IVP PRN ×2 (12:08→20:48)
[2019-02-21] MEDS: Hyoscyamine Sulfate SL 0.125 mg Tablet SL PRN (21:28)
[2019-02-22] MEDS: Lorazepam 2 MG/ML VIAL SLOW IVP PRN ×10 (02:00→22:25)
[2019-02-22] MEDS: Morphine 2 MG/ML SYRINGE SLOW IVP SCH ×12 (02:00→22:25)
[2019-02-22] MEDS: diphenhydrAMINE 50 MG/ML VIAL IVP PRN ×2 (12:20→22:25)
[2019-02-22] MEDS: Scopolamine 1.5 mg/72 hour Patch TOP SCH (20:20)
[2019-02-22] MEDS: Hyoscyamine Sulfate SL 0.125 mg Tablet SL PRN (21:37)
[2019-02-22] MEDS: Morphine 2 MG/ML SYRINGE SLOW IVP PRN (22:26)
[2019-02-23] MEDS: Lorazepam 2 MG/ML VIAL SLOW IVP PRN ×12 (00:16→22:06)
[2019-02-23] MEDS: Morphine 4 MG/ML VIAL IV PRN ×5 (00:17→06:20)
[2019-02-23] MEDS: Morphine 2 MG/ML SYRINGE SLOW IVP SCH ×6 (02:36→09:27)
[2019-02-23] MEDS: diphenhydrAMINE 50 MG/ML VIAL IVP PRN ×2 (06:10→16:40)
[2019-02-23] MEDS ORDERED: Morphine 2 MG/ML SYRINGE SLOW IVP PRN (11:39)
[2019-02-23] MEDS: Morphine 4 MG/ML VIAL SLOW IVP SCH ×6 (12:10→22:06)
[2019-02-24] MEDS: Lorazepam 2 MG/ML VIAL SLOW IVP PRN ×6 (00:15→10:32)
[2019-02-24] MEDS: Morphine 4 MG/ML VIAL SLOW IVP SCH ×6 (00:16→10:33)
[2019-02-24 08:27] VITALS: BP 90/41; TEMP 99.7
--- NOTE | 2019-02-27 15:36 | DIS ---
DATE OF ADMISSION: 02/19/2019 DATE OF DISCHARGE: 02/24/2019 ADMISSION DIAGNOSIS: End-organ failure with poor response to sepsis and newly found malignancy. DATE OF : 02/24/2019. TIME OF : 11:32 a.m. BRIEF SUMMARY OF HISTORY AND PHYSICAL: The patient was an unfortunate 83-year-old white female, who was initially admitted to the hospital with new onset fever and hypotension. The patient had a change in mental status, initially was thought to be septic with altered mental status. Workup showed metastatic disease of unknown primary, although the patient had a history of ovarian cancer. There were lesions found in the liver as well as other organs. A biopsy was attempted without diagnostic results. The patient had a further decline in status to the point where she was obtunded, unresponsive, and family determined it was most appropriate for the patient to be admitted to hospice. She has made a GIP inpatient hospice admission due to her severe air hunger, anxiety, pain, and overall comfort status requiring IV treatment. The patient was admitted and started on IV morphine as needed for pain and air hunger, IV benzodiazepines for anxiety and restlessness, and scopolamine patch for helping with her secretions. Over the next several days, the patient had some improvement in her overall status, was resting comfortably with continued IV medications. All three daughters were at bedside with frequent daily rounding to address their concerns and wishes. On the morning of 02/24/2019 at 11:32 a.m., she was seen by nursing staff to be without respirations, without pulse, unresponsive to any stimuli and was pronounced with family at her bedside. Body was released to the home per family wishes, and all questions were answered. Job ID: [id number]
--- NOTE | 2019-03-10 08:05 | PQF ---
[employer] Manager [employer] Crystal Reports Winform ViewerROBMAGED DUONG MELISSA ALEXIS MD [id number] [facility]C-[id number] CLINICAL DOCUMENTATION CLARIFICATION FORM: POST DISCHARGE Addendum to original discharge summary date: ____ Late entry note date: __ DATE:03/10/2019 ATTN:MELISSA ALEXIS MD Please exercise your independent, professional judgment in responding to the clarification form. Clinical indicators are provided on the bottom of this form for your review Please check appropriate box(s): HEART FAILURE: A. TYPE: [ ] Systolic / HFrEF [ ] Diastolic / HFpEF [ ] Combined Systolic / Diastolic B. ACUITY [ ] Acute [ ] Acute on Chronic [ ] Chronic [ ] Other diagnosis [ ] Unable to determine For continuity of documentation, please document condition throughout progress notes and discharge summary. Thank You. CLINICAL INDICATORS - SIGNS / SYMPTOMS / LABS - PMH: CHF- H&P, 02/12, Chris Reid MD - Hx of diastolic dysfunction- H&P, 02/12, Chris Reid MD - BP was initially low but is now high in 190s systolic- H&P, 02/12, Chris Reid MD - BNP:459.7H- 02/17, Laboratory RISKS: -CKD 3- H&P, 02/12, Chris Reid MD -HTN- H&P, 02/12, Chris Reid MD -Permanent pacemaker- H&P, 02/12, Chris Reid MD TREATMENTS: -Consult cardiology in AM- H&P, 02/12, Chris Reid MD -Continue home meds- H&P, 02/12, Chris Reid MD (This form is maintained as a part of the permanent medical record) 2014 [employer]. All Rights Reserved Juan Garrett [not provided] [not provided] MTDD
--- NOTE | 2019-03-10 08:18 | PQF ---
[employer] Economic Specialist Crystal Reports Winform ViewerMAGED NUNEZ MELISSA ALEXIS MD [id number] [id number] CLINICAL DOCUMENTATION CLARIFICATION FORM: POST DISCHARGE Addendum to original discharge summary date: ____ Late entry note date: __ DATE: 03/10/2019 ATTN: MELISSA ALEXIS MD Please exercise your independent, professional judgment in responding to the clarification form. Clinical indicators are provided on the bottom of this form for your review Please check appropriate box(s): [ ] Encephalopathy: Type: [ ] Acute [ ] Subacute [ ] Chronic Etiology: [ ] Hypertensive [ ] Metabolic [ ] Toxic [ ] Hepatic with Coma [ ] Hepatic w/o Coma [ ] Hypoxic [ ] Septic [ ] Drug induced: [ ] Unspecified [ ] in the setting of underlying dementia [ ] Other (please specify) [ ] Transient Alteration of Awareness [ ] Other diagnosis [ ] Unable to determine For continuity of documentation, please document condition throughout progress notes and discharge summary. Thank You. CLINICAL INDICATORS - SIGNS / SYMPTOMS / LABS - AMS: status: Acute- H&P, 02/12, Chris Reid MD - suspected delirium from subacute infection vs toxic/metabolic perhaps from high calcium or low sodium- H&P, 02/12, Chris Reid MD - Ammonia:12L-02/11-Laboratory - End-organ failure with poor response to sepsis and newly found malignancy-DS, 02/24, MELISSA ALEXIS MD - changes in mental status, initially was thought to be septic with altered mental status-BRETT, 02/24, MELISSA ALEXIS MD RISK FACTORS -CKD 3-H&P, 02/12, Chris Reid MD -Hyponatremia-H&P, 02/12, Chris Reid MD -Hypocalcemia-H&P, 02/12, Chris Reid MD TREATMENTS: - Sodium chloride.IV- MAR, 02/19 [employer] Specialist Crystal Reports Win[employer] Viewer (This form is maintained as a part of the permanent medical record) 2014 [employer]. All Rights Reserved Juan Garrett [not provided] [not provided] MTDD
== END 2019-02-24 11:32 | disposition expired | DRG 951 ==
LOC: ONC 18:25
PROVIDERS: ADMIT Family Medicine; ATTEND Family Medicine
DX: Z51.5 Encounter for palliative care (principal); A41.9 Sepsis, unspecified organism; E87.1 Hypo-osmolality and hyponatremia; C79.9 Secondary malignant neoplasm of unspecified site; I12.9 Hypertensive chronic kidney disease with stage 1 through stage 4 chronic kidney disease, or unspecified chronic kidney disease; N18.3 Chronic kidney disease, stage 3 (moderate); D63.1 Anemia in chronic kidney disease; K76.9 Liver disease, unspecified; Z66 Do not resuscitate; E03.9 Hypothyroidism, unspecified; J44.9 Chronic obstructive pulmonary disease, unspecified; I25.10 Atherosclerotic heart disease of native coronary artery without angina pectoris; M35.3 Polymyalgia rheumatica; I48.91 Unspecified atrial fibrillation; I95.9 Hypotension, unspecified; F41.9 Anxiety disorder, unspecified; E83.52 Hypercalcemia; M06.9 Rheumatoid arthritis, unspecified; Z85.43 Personal history of malignant neoplasm of ovary; Z95.0 Presence of cardiac pacemaker; Z79.01 Long term (current) use of anticoagulants; I25.2 Old myocardial infarction; Z90.710 Acquired absence of both cervix and uterus; Z90.49 Acquired absence of other specified parts of digestive tract; Z87.891 Personal history of nicotine dependence
CPT/HCPCS: J1200; J2060; J2270